=== PATIENT | male | born 1930 | race Caucasian/White ===

== ENCOUNTER 2018-10-15 09:52 | Inpatient (IN) | payer OTHER ==
--- NOTE | 2018-10-15 09:45 | R.PREADM ---
SCREENING DATE AND TIME 10/14/2018 14:21 (CDT) ANTICIPATED REHAB ADMISSION DATE 10/16/2018 REFERRING FACILITY [facility] REFERRAL DATE AND TIME 10/14/2018 14:21 (CDT) ACUTE ADMIT DATE 09/08/2018 Previous Rehabilitation(s): No. REFERRING PHYSICIAN Katarina Huff REHAB FACILITY [facility] PHYSICIAN REVIEWER Dr. Chelly Limon MR# [id number] NAME JILLIAN JARQUIN ADDRESS [id number] [place] [address] PHONE [facility] [id number] DATE OF 1930 AGE 87 SSN# [id number] GENDER male MARITAL STATUS RACE white ADMIT FROM 01 - Home (private home/apt. board/care, assisted living, fci, transitional living) PRE-HOSPITAL LIVING SETTING 01 - Home (private home/apt. board/care, assisted living, fci, transitional living) HOME TYPE AND DETAILS Type of home: single family house # of levels in the residence: 1 # of steps to enter the residence: 0 # of steps within the residence: 0 PRE-HOSPITAL LIVING WITH Family/Relatives FAMILY SUPPORT Yes PRIMARY FAMILY CONTACT NAME Vernell Jarquin PRIMARY FAMILY CONTACT PHONE PRIMARY FAMILY CONTACT RELATIONSHIP PHONE PRIMARY FAMILY CONTACT ON ADM.? no IS PRIMARY FAMILY CONTACT AUTH. REP.? no 1ST EMERGENCY CONTACT Vernell Jarquin 1ST CONTACT PHONE 1ST CONTACT RELATIONSHIP PHONE 1ST CONTACT ON ADM. no IS 1ST CONTACT AUTH. REP.? no PHONE 2ND CONTACT ON ADM.? no PATIENT EMPLOYMENT STATUS Retired (for age) PATIENT EMPLOYER No Employer PAYOR INFORMATION: 1ST PAYOR NAME MEDICARE 1ST PAYOR PHONE [phone] 1ST PAYOR INJURY/ILLNESS DUE TO ACCIDENT? No ANOTHER GREEN PARTY RESPONSIBLE? No PRIMARY REHAB/ACUTE DIAGNOSIS: Right Hip Intertrochanteric Fracture ONSET DATE 09/08/2018 REHAB IMPAIRMENT CATEGORY (LISA): 07 Fracture of LE (FracLE) MEETS 60% rule AFFECTED EXTREMITIES: RLE PRIMARY DIAGNOSIS-RELATED SURGERIES: Cephalomedullary Nailing Right Femur- performed by Katarina Huff on 09/09/2018 COMORBID REHAB/ACUTE DIAGNOSES: - N/A ATRIAL FIBRILLATION CAD HTN GOUT GERD PROSTATE CANCER INTERVENTIONS: - Atrial Fibrillation Anticoagulation Medications VS - CAD 02 sats Activity management Medications VS - GERD Altered diet Elevation of head of bed Medications Nausea/vomiting Nighttime food/fluid restrictions Nutrition RISK FOR COMPLICATIONS: - Atrial Fibrillation CVA Heart failure Limb embolus - CAD CHF Cardiac Arrest [place] Pain - GERD Alteration in sleep Aspiration Dehydration Malnutrition Pain SUMMARY OF ACUTE HOSPITALIZATION: Pt. is a 87 yo Right-handed white male. On 09/08/2018 he was admitted to [facility] with diagnosis Right Hip Intertrochanteric Fra cture. His impairment category is Orthopaedic Disorders 08 - Unilateral Hip Fracture (08). Pre-morbidly, Pt. was independent/mod-I in Self-Care, Sphincter Control, Transfers Control, Locomotio n, Communication, and Social Cognition; and he had good Sphincter Control. Currently, he has deficits of Self-Care, Transfers Control, Locomotion, Endurance, Balance, and Safet y Awareness. Pt. is now referred to [facility] for acute in-patient rehabilitation in order to maximize patient's functional independence in activities of daily living, strength, ROM, and mobi lity. Patient has realistic goal of being discharged at assistance level 6-Nini to reside at Home with Fam lizzy/Relatives. Jillian Jarquin is an 87 old male that lives in a single chelo house with his . On 09/08/2018, he fell and was admitted at [facility]. He is now medically stable but in need of 24-hour nursing, doctor supervision and oversite while receiving participate in 3hours of therapy a day/15 hours per week and receive care with an intensive interdisciplinary approach. PAST MEDICAL HISTORY ATRIAL FIBRILLATION CAD GERD GOUT HTN PROSTATE CANCER MEDICATION ALLERGIES: No Known Drug Allergies (NKDA) ENVIRONMENTAL ALLERGIES: None Known - Substance Allergies None Known - Other Allergies None Known CODE STATUS: Full code WEIGHT/HEIGHT/BMI: WEIGHT 200 lbs HEIGHT 6' 1" BMI 26.4 DIET: - Diet Type Regular - Diet - Solid Texture Regular - Diet - Liquid Texture Regular - Tube Feed N/A REVIEW OF SYSTEMS: - Gen Alert and awake Lying in bed No apparent distress Oriented to: person, time, and place - Vital Signs Temperature: 98.5 F SBP/DBP: 152/88 Pulse: 62 Resp: 16 Vital signs stable, afebrile - CVS RRR VITAL SIGNS Temperature: 98.5 F SBP/DBP: 152/88 Pulse: 62 Resp: 16 Vital signs stable, afebrile CURRENT SPHINCTER CONTROL: Pre-hospital bladder status: continent # of bladder accidents in the last 7 days prior to screenin Pre-hospital bowel status: continent # of bowel accidents in the last 7 days prior to screenin Last Bowel Movement Date:10/13/2018 DETAILED CURRENT FUNCTIONAL STATUS: - Bladder accident frequency: Ind - No accidents in the past 7 days - Bowel accident frequency: Ind - No accidents in the past 7 days - Walking score based on distance walked: 0(N/A) - Wheelchair score based on distance traveled: 0(N/A) FUNCTIONAL STATUS: - Self-Care A. Eating Ind sup B. Grooming Ind sup C. Bathing Ind sup D. Dressing - Upper Ind Brady E. Dressing - Lower Ind modA F. Toileting Ind modA - Sphincter Control G: Bladder control Ind Ind H: Bowel control Ind Ind - Transfers Control I. Bed/Chair/Wheelchair Ind modA J. Toilet Ind modA K. Tub/Shower Ind ADNO - Locomotion L. Walk/Wheelchair (C) Ind maxA L. Walk/Wheelchair (W) Ind maxA M. Stairs Ind ADNO - Communication N. Comprehension (B) Ind Ind O. Expression (B) Ind Ind - Social Cognition P. Social Interaction Ind Ind Q. Problem Solving Ind Ind R. Memory Ind Ind - Endurance Fair - Balance Fair - Safety Awareness Fair CURRENT FUNC. DEFICITS: Self-Care, Transfers Control, Locomotion, Endurance, Balance, and Safety Awareness THERAPY NOTES FROM ACUTE CARE: Attached. SPECIAL NEEDS: - Safety Concerns Skin breakdown precautions needed due to skin breakdown risk PRECAUTIONS: - Posterior Hip Precaution No adduction across midline No external rotation No hip flexion >90 degrees No internal rotation No wheel chair propulsion - Weight Bearing Precaution WBAT right LE PATIENT NEEDS ACTIVE AND ONGOING THERAPEUTIC INTERVENTION OF MULTIPLE THERAPY DISCIPLINES, INCLUDING: - Dietary and Nutrition Adequate Nutrition. Nutritional Education. Nutritional Supplements. PATIENT NEEDS CLOSE MEDICAL SUPERVISION BY A REHABILITATION PHYSICIAN FOR: Bowel and Bladder Management Coordination of Treatment Team Medical and Co-Morbidity Management PATIENT REQUIRES 24X7 REHAB NURSING FOR MEDICAL AND FUNCTIONAL MGT. 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 - Consensus on plan Discharge plan has been discussed with primary caregiver. Patient/Family is in agreement with the justin n. Primary caregiver is in agreement with the plan. - Patient/Family Goals Return home with assistance. - Planned Living Setting Upon Discharge Home, to live with Family/Relatives. Transitional Living. RECOMMENDED CARE LEVEL: IRF RECOMMENDATION DETAILS: Recommended Admission to Comprehensive Rehabilitation Program to Increase Functional [place] [facility] REVIEW AND ADMISSION DETERMINATION Admit - Based on my review of the Pre-Admission Screening results, in my medical judgment and experie nce, I concur with the findings and recommend admission to [facility], as this patient requires an IRF level of care. SIGNATURE PANEL: Clinical Liaison - [electronically] signed by Alfonzo Verdin on 10/14/2018 at 17:28 (CDT) Physician Reviewer - [electronically] signed by Dr. Chelly Limon on 10/15/2018 at 09:44 (CDT)
--- OUTSIDE RECORDS SUMMARY | 2018-10-15 09:54 | XMS REPORT | Clinical Summary ---
:1930 Author Organization [facility] Address [address] [place] [address] Care Team Providers Name Role Phone Asked, No Pcp Primary Care Provider Unavailable Allergies No Known Allergies Medications Medication Sig Dispensed Refills Start Date End Date Status clopidogrel Take 75 mg by 0 Active (PLAVIX) 75 mg mouth daily. tablet lisinopril Take 10 mg by 0 Active (PRINIVIL,ZESTRIL) mouth daily. 10 mg tablet sotalol (BETAPACE) Take 80 mg by 0 Active 80 MG tablet mouth 2 (two) times a day. allopurinol Take 300 mg by 0 Active (ZYLOPRIM) 300 MG mouth daily. tablet omeprazole Take 10 mg by 0 Active (PriLOSEC) 10 MG mouth daily. capsule silodosin (RAPAFLO) Take 1 capsule (8 90 capsule 3 07/31/2018 Active 8 mg mg total) by capsuleIndications: mouth daily. Take Prostate cancer after dinner to (HCC) relax prostate and have less urination at night. arnica 20 % Apply 5 mL 1 Bottle 0 07/31/2018 Active tincture topically 2 (two) times a day as needed (bruising). doxycycline Take 1 tablet 28 tablet 0 07/31/2018 08/14/2018 (VIBRA-TABS) 100 MG (100 mg total) by tabletIndications: mouth 2 (two) Orchalgia times a day for 14 days. Active Problems Problem Noted Date Hematoma of scrotum 07/31/2018 Encounters Date Type Specialty Care Team Description 07/31/2018 Office Visit Urology Jaspreet Raymond MD Hematoma of scrotum (Primary Dx); Prostate cancer (HCC); Nocturia; Orchalgia 07/30/2018 Telephone Urology Jaspreet Raymond MD after 10/14/2017 Family History Medical History Relation Name Comments Cancer Father Cancer Mother Relation Name Status Comments Father Mother Social History Tobacco Use Types Packs/Day Years Used Date Never Smoker Smokeless Tobacco: Never Used Alcohol Use Drinks/Week oz/Week Comments Yes Sex Assigned at Date Recorded Not on file Job Start Date Occupation Industry Not on file Not on file Not on file Travel History Travel Start Travel End No recent travel history available. Last Filed Vital Signs Vital Sign Reading Time Taken Blood Pressure - - Pulse - - Temperature - - Respiratory Rate - - Oxygen Saturation - - Inhaled Oxygen Concentration - - Weight 94.8 kg (209 lb) 07/31/2018 7:36 AM CDT Height 182.9 cm (6') 07/31/2018 7:36 AM CDT Body Mass Index 28.35 07/31/2018 7:36 AM CDT Plan of Treatment Health Maintenance Due Date Last Done Comments SHINGLES VACCINES (#1) 11/11/1979 65+ PNEUMOCOCCAL VACCINE (1 of 2 - PCV13) 1994 INFLUENZA VACCINE 10/08/2018 Procedures Procedure Name Priority Date/Time Associated Diagnosis Comments PSA, TOTAL AND FREE Routine 07/31/2018 8:28 AM Prostate cancer Results for this CDT (HCC) procedure are in the results section. [id number] Routine 07/31/2018 8:18 AM Nocturia Results for this CDT procedure are in the results section. after 10/14/2017 Results PSA, total and free (07/31/2018 8:28 AM CDT) PSA 0.2 0.0 - 4.0 [facility] Comment: ng/mL Silvano ECLIA methodology. According to the [place] [employer], Serum PSA should decrease and remain at undetectable levels after radical prostatectomy. The AUA defines biochemical recurrence as an initial PSA value 0.2 ng/mL or greater followed by a subsequent confirmatory PSA value 0.2 ng/mL or greater. Values obtained with different assay methods or kits cannot be used interchangeably. Results cannot be interpreted as absolute evidence of the presence or absence of malignant disease. PSA, free 0.02Comment: [place]ano N/A ng/mL [facility] ECLIA methodology. PSA, free percent 10.0 % [facility] Comment: The table below lists the probability of prostate cancer for men with non-suspicious IVY results and total PSA between 4 and 10 ng/mL, by patient age (Karyn et al, KARY 1998, 279:1542). % Free PSA 50-64 yr 65-75 yr 0.00-10.00%56% 55% 10.01-15.00%24% 35% 15.01-20.00%17% 23% 20.01-25.00%10% 20% >25.00% 5% 9% Please note:Karyn et al did not make specific recommendations regarding the use of percent free PSA for any other population of men. Specimen Blood Narrative Performed At Performed at:01 - [facility] [place] [facility] [address] [place], [id number] [employer] Sensei: Zacarias Gray MD, Phone:[phone] Performing Organization Address City/State/Zipcode Phone Number [facility] POC BLADDER SCAN/PVR (07/31/2018 8:18 AM CDT) Volume 12 ml Specimen Urine after 10/14/2017 [id number] (Home) [place] [address] Advance Directives Patient has advance care planning documents on file. For more information, please contact:Brody [id number] [place] [address]
--- OUTSIDE RECORDS SUMMARY | 2018-10-15 09:57 | XMS REPORT | Continuity of Care Document ---
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 NAUSEA/VOMITING Active 04/09/19 [facility] 15 [facility] Center 715.16 - LOC Active 08/17/19 [facility] PRIM OSTEOA 14 [place] CHEST PAIN, Active 12/01/19 [place] [address] Medical URGENCY Center CHEST PAIN Active 12/01/[address] Cancer Resolved Problem 08/18/2013 [facility] [place] Anemia Active Problem 07/03/2018 [facility] Bradycardia Active Problem 07/03/2018 [facility] Carotid stenosis Active Problem 07/03/2018 [facility] Cholesterol Resolved Problem 07/03/2018 [facility], [facility] [place] Hematoma Active Problem 07/03/2018 [facility] HTN - Resolved Problem 07/03/2018 [facility], [facility] [place] Prostate cancer Resolved Problem 07/03/2018 [facility], [facility] [place] Cancer Resolved Problem 12/04/2012 [facility] Cholesterol Resolved Problem 12/04/2012 [facility] HTN - Resolved Problem 12/04/2012 [facility] Prostate cancer Resolved Problem 12/04/2012 [facility] CHEST PAIN NOS Active [facility] Medications Medication Details Route Status Patient Ordering Order Source Instructions Provider Date Amlodipine 5 mg, 1 tab, Inactive [facility] Route: PO, Drug 2019 Medical form: TAB, Daily, Center Dosing Weight 97.727, kg, Start date: 07/01/18 9:00:00 CDT, Duration: 30 day, Stop date: 07/30/18 9:00:00 CDTNotes: (Same as: Norvasc) Allopurinol 300 mg, 1 tab, Inactive 07/01/ [facility] Route: PO, Drug 2019 Medical form: TAB, Daily, Center Dosing Weight 97.727, kg, Start date: 07/01/18 9:00:00 CDT, Duration: 30 day, Stop date: 07/30/18 9:00:00 CDTNotes: (Same as: Zyloprim) multivitamin 1 tab, Route: PO, Inactive [facility] Drug Form: TAB, 2019 Medical Dosing Weight Center 97.727, kg, Daily, Start date: 07/01/18 9:00:00 CDT, Duration: 30 day, Stop date: 07/30/18 9:00:00 CDTNotes: (Same as:Thera) WASTE: F/P - Black; E - Municipal Trash Bin Take with food. tramadol 50 mg=1 tab, PO, Active [facility] hydrochloride 50 Q6H, PRN Pain 2019 Medical MG Oral Tablet Score 1-5, # 60 Center tab, 0 Refill(s) Melatonin 3 MG 3 mg, 1 tab, No Longer [facility] Extended Release Route: PO, Drug Active 2018 Medical Tablet Form: TAB, Dosing Center Weight 97.727, kg, Bedtime, PRN as needed for insomnia, Start date: 06/30/18 21:59:00 CDT, Duration: 30 day, Stop date: 07/30/18 21:58:00 CDTNotes: (Same as: Melatonin) Protonix 40 mg, 1 tab, No Longer [facility] Route: PO, Drug Active 2018 Medical form: ECTAB, Center Q12H, Start date: 06/30/18 21:00:00 CDT, Duration: 30 day, Stop date: 07/30/18 9:00:00 CDTNotes: Tablet should not be chewed or crushed. (Same as: Protonix) atorvastatin 20 mg, 1 tab, No Longer [facility] Route: PO, Drug Active 2019 Medical form: TAB, Center Bedtime, Dosing Weight 97.727, kg, Start date: 06/30/18 21:00:00 CDT, Duration: 30 day, Stop date: 07/29/18 21:00:00 CDTNotes: (Same As: Lipitor) Sotalol 80 mg, 1 tab, No Longer [facility] Route: PO, Drug Active 2019 Medical form: TAB, BID, Center Dosing Weight 97.727, kg, Start date: 06/30/18 17:00:00 CDT, Duration: 30 day, Stop date: 07/30/18 9:00:00 CDTNotes: (Same As: Betapace) Prilosec 20 mg, Route: PO, Inactive [facility] Drug form: DRC, 2019 Medical BID, Dosing Center Weight 97.727, kg, Start date: 06/30/18 17:00:00 CDT, Duration: 30 day, Stop date: 07/30/18 9:00:00 CDT Lisinopril 40 mg, 2 tab, No Longer [facility] Route: PO, Drug Active 2019 Medical form: TAB, BID, Center Dosing Weight 97.727, kg, Start date: 06/30/18 17:00:00 CDT, Duration: 30 day, Stop date: 07/30/18 9:00:00 CDTNotes: (Same as: Prinivil, Zestril) Sodium Chloride 250 mL, Rate: To No Longer [facility] 0.9% (titrate) prime line and Active 2019 Medical 250 mL flush remaining Center blood products., Dosing Weight 97.727, kg, Route: IV, Total Volume: 250, Priority: Routine, Start Date: 06/30/18 16:11:00 CDT, Duration: 30 day, Stop date: 07/30/18 16:10:00 CDT, Replace Every: 24 hr Zofran 4 mg, 2 mL, Inactive [facility] Route: IVP, Drug 2019 Medical form: INJ, ONCE, Center Dosing Weight 97.727, kg, Start date: 06/30/18 15:45:00 CDT, Stop date: 06/30/18 15:45:00 CDTNotes: (Same as: Zofran) MEDICATION WASTE Product Size: 4 mg Product Wasted: ___ mg Calcium 1,000 mg, 2 tab, No Longer [facility] Carbonate 500 MG Route: PO, Drug Active 2019 Medical Chewable Tablet form: CHEWTAB, Center PRN, Dosing Weight 97.727, kg, PRN Abnormal Lab Result, FOR ICU USE ONLY, Start date: 06/30/18 12:03:00 CDT, Duration: 30 day, Stop date: 07/30/18 12:02:00 CDTNotes: (Same As: Tumdeo) Calcium Carbonate 500 qo=440 mg elemental calcium Dose= mg calcium carbonate ( mg elemental calcium) Calcium 1 gm, 10 mL, No Longer [place] Gluconate Route: IVPB, PRN, Active 2019 Medical Dosing Weight Center 97.727, kg, PRN Abnormal Lab Result, Start date: 06/30/18 12:03:00 CDT, Duration: 30 day, Stop date: 07/30/18 12:02:00 CDT, FOR ICU USE ONLYNotes: WASTE: F/P - Sink; E - Municipal Trash Bin Magnesium 2 gm, 50 mL, No Longer [place] Sulfate Route: IVPB, Drug Active 2018 Medical form: INJ, PRN, Center Dosing Weight 97.727, kg, PRN Abnormal Lab Result, Start date: 06/30/18 12:03:00 CDT, Duration: 30 day, Stop date: 07/30/18 12:02:00 CDT, FOR ICU USE ONLYNotes: WASTE: F/P - Sink; E - Municipal Trash Bin potassium 2 pkt, Route: PO, No Longer [facility] phosphate-sodium Drug Form: Active 2019 Medical phosphate 250 PDR/REC, Dosing Center mg-280 mg-160 mg Weight 97.727, oral powder for kg, PRN, PRN reconstitution Abnormal Lab Result, FOR ICU USE ONLY, Start date: 06/30/18 12:03:00 CDT, Duration: 30 day, Stop date: 07/30/18 12:02:00 CDTNotes: (Same as: Phos-NaK) Each 1.5 gm pkt has 250mg phosphorous. Mix w/2.5oz water and stir. Magnesium Oxide 800 mg, 2 tab, No Longer [facility] Route: PO, Drug Active 2018 Medical form: TAB, PRN, Center Dosing Weight 97.727, kg, PRN Abnormal Lab Result, FOR ICU USE ONLY, Start date: 06/30/18 12:03:00 CDT, Duration: 30 day, Stop date: 07/30/18 12:02:00 CDTNotes: (Same as: Mag-Ox 400) Magnesium oxide 245so=230ti elemental magnesium Dose=____mg magnesium oxide (___mg elemental magnesium) potassium 45 mmol, 15 mL, No Longer [place] phosphate Route: IVPB, PRN, Active 2019 Medical Dosing Weight Center 97.727, kg, PRN Abnormal Lab Result, Start date: 06/30/18 12:03:00 CDT, Duration: 30 day, Stop date: 07/30/18 12:02:00 CDT, FOR ICU USE ONLYNotes: (Same as: K Phosphate.) Do not infuse phosphorous concurrently in the same line as TPN or IVF that contains calcium. For double lumen central lines, phosphorous may be infused in a separate lumen from TPN. 1 mMol phoshate has 1.47 mEq potassium Infuse over 4 hours sodium phosphate 30 mmol, 10 mL, No Longer [place] Route: IVPB, PRN, Active 2018 Medical Dosing Weight Center 97.727, kg, PRN Abnormal Lab Result, Start date: 06/30/18 12:03:00 CDT, Duration: 30 day, Stop date: 07/30/18 12:02:00 CDT, FOR ICU USE ONLYNotes: Infuse over 4 hour. Do not infuse phosphorous concurrently in the same line as TPN or IVF that contains calcium. For double lumen central lines, phosphorous may be infused in a separate lumen from TPN. Potassium 20 mEq, 15 mL, No Longer [place] Chloride Route: TARA, Drug Active 2018 Medical form: LIQ, PRN, Center Dosing Weight 97.727, kg, PRN Abnormal Lab Result, Start date: 06/30/18 12:03:00 CDT, Duration: 30 day, Stop date: 07/30/18 12:02:00 CDT, FOR ICU USE ONLYNotes: (Same as: Potassium Chloride) Nitroglycerin 0.4 mg, 1 tab, No Longer [place] Route: KIARA, Drug Active 2018 Medical form: TAB, Q5Min, Center Dosing Weight 97.727, kg, PRN Chest Pain, Start date: 06/30/18 9:19:00 CDT, Duration: 3 doses or times, Stop date: Limited # of timesNotes: (Same as:Nitroquick, Nitrostat) "Do Not Crush" Sublingual tablet Plavix 75 mg, 1 tab, No Longer [place] Route: PO, Drug Active 2018 Medical form: TAB, Daily, Center Dosing Weight 97.727, kg, Start date: 06/30/18 9:18:00 CDT, Duration: 30 day, Stop date: 07/30/18 9:00:00 CDTNotes: (Same As: Plavix) Aspirin 81 mg, 1 tab, No Longer [place] Route: PO, Drug Active 2018 Medical form: CHEWTAB, Center Daily, Dosing Weight 97.727, kg, Start date: 06/30/18 9:17:00 CDT, Duration: 30 day, Stop date: 07/30/18 9:00:00 CDTNotes: Take with food. Streptococcus 0.5 mL, Route: No Longer [place] pneumoniae IM, Drug Form: Active 2018 Medical serotype 1 INJ, ONCALL, [place] capsular antigen Start date: diphtheria 06/30/18 6:56:54 [id number] protein CDT, Stop date: conjugate 07/30/18 6:51:54 vaccine / CDTNotes: Shake Streptococcus well prior to use pneumoniae (Same as: serotype 14 Prevnar 13) capsular antigen diphtheria [id number] protein conjugate vaccine / Streptococcus pneumoniae serotype 18C capsular antigen d Amlodipine 5 mg, PO, Daily, Active [place] 0 Refill(s) 2018 Medical [place] clopidogrel 75 75 mg=1 tab, PO, Active [place] MG Oral Tablet Daily, 0 2018 [facility] [Plavix] Refill(s) [place] Protonix 40 mg, 1 tab, PO No Longer [facility] [place] Route: PO, Drug Active 2012 Medical form: ECTAB, [place] Before Dinner, Start date: 12/01/12 16:30:00, Duration: 30 day, Stop date: 12/30/12 16:30:00 sotalol 80 mg, 1 tab, PO No Longer [facility] [place] Route: PO, Drug Active 2012 Medical form: TAB, BID, Center Dosing Weight 103.182, kg, Start date: 12/01/12 9:00:00, Duration: 30 day, Stop date: 12/30/12 17:00:00 Prilosec 20 mg, Route: PO, PO No Longer [facility] Drug form: DRC, Active 2012 Medical BID, Dosing Center Weight 103.182, kg, Start date: 12/01/12 9:00:00, Duration: 30 day, Stop date: 12/30/12 17:00:00 multivitamin 1 tab, Route: PO, PO No Longer [facility] Drug Form: TAB, Active 2012 Medical Dosing Weight Center 103.182, kg, Daily, Start date: 12/01/12 9:00:00, Duration: 30 day, Stop date: 12/30/12 9:00:00 lisinopril 40 mg, 2 tab, PO No Longer [facility] Route: PO, Drug Active 2012 Medical form: TAB, BID, Center Dosing Weight 103.182, kg, Start date: 12/01/12 9:00:00, Duration: 30 day, Stop date: 12/30/12 17:00:00 aspirin 81 mg, 1 tab, PO No Longer [facility] Route: PO, Drug Active 2012 Medical form: CHEWTAB, Center Daily, Dosing Weight 103.182, kg, Start date: 12/01/12 9:00:00, Duration: 30 day, Stop date: 12/30/12 9:00:00 allopurinol 300 mg, 1 tab, PO No Longer [facility] Route: PO, Drug Active 2012 Medical form: TAB, Daily, Center Dosing Weight 103.182, kg, Start date: 12/01/12 9:00:00, Duration: 30 day, Stop date: 12/30/12 9:00:00 amLODipine 5 mg, 1 tab, PO No Longer [facility] Route: PO, Drug Active kavita 2012 Medical form: TAB, Daily, Center Dosing Weight 102.273, kg, Start date: 12/01/12 9:00:00, Duration: 30 day, Stop date: 12/30/12 9:00:00 ibuprofen 400 mg, 1 tab, PO No Longer [facility] Route: PO, Drug Active 2012 Medical form: TAB, ONCE, Center Dosing Weight 102.273, kg, Start date: 11/30/12 20:47:00, Stop date: 11/30/12 20:47:00 Prilosec 20 mg 20 mg, 1 cap, PO, [facility] oral delayed BID, 30 cap, 2012 Medical release capsule Substitution Center Allowed multivitamin 1 tab, PO, Daily, PO [facility] Substitution 2012 Medical Allowed, Center Maintenance aspirin 81 mg, PO, Daily, PO Active [facility] Sub[facility] 2012 Medical Allowed Center fentanyl 50 microgram, 1 IVP No Longer [facility] mL, Route: IVP, Active kavita 2012 Medical Drug form: INJ, Center ONCE, Dosing Weight 102.273, kg, Priority: STAT, Start date: 11/30/12 15:34:00, Stop date: 11/30/12 15:34:00 Cardene 40 mg in 40 mg, 200 mL, IV No Longer [facility] NS 200 ml IV 40 Rate: Titrate, Active kavita 2012 Medical mg Dosing Weight Center 102.273, kg, Route: IV, Total Volume: 200 mL, Duration: 30 day, Stop date: 12/30/12 15:33:00, Replace Every: 24 hr nitroglycerin 0.4 mg, 1 tab, SL No Longer [facility] Route: SL, Drug Active kavita 2012 Medical form: TAB, ONCE, Center Dosing Weight 102.273, kg, Priority: STAT, Start date: 11/30/12 14:41:00, Stop date: 11/30/12 14:41:00 morphine Sulfate 2 mg, 1 mL, IVP No Longer [facility] Route: IVP, Drug Active kavita 2012 Medical form: INJ, ONCE, Center Dosing Weight 102.273, kg, Priority: STAT, Start date: 11/30/12 14:40:00, Stop date: 11/30/12 14:40:00 Saline Flush 5 mL, Route: IVP, IVP No Longer [facility] 0.9% Drug Form: INJ, Active kavita 2012 Medical Dosing Weight Center 102.273, kg, Q8H, PRN Line Flush, Start date: 11/30/12 14:37:00, Duration: 30 day, Stop date: 12/30/12 14:36:00, Administer at least once every 8 hoursAdminister at least once every 8 hours allopurinol 300 mg, PO, PO [facility] Daily, 2012 Medical Substitution Center Allowed lisinopril 40 mg, PO, BID, PO On Hold [facility] [place] Substitution 2012 Medical Allowed Center sotalol 80 mg, PO, BID, PO On Hold [facility] [place] Substitution 2012 [facility] Allowed [place] influenza virus 0.5 ml, Route: IM No Longer [facility] [place] vaccine, IM, Drug Form: Active 2007 Medical inactivated INJ, ONCE, Start Center date: 01/29/08 9:00:00, Stop date: 01/29/08 9:00:00 Allergies, Adverse Reactions, Alerts No Known Medication Allergies Immunizations Immunization Date Site Status Last Updated Comments Source Given [facility] vaccine, 8 deltoid [facility] inactivated Center, [facility] influenza [facility] vaccine, 8 [facility] inactivated Center Results Order Name Results Value Reference Date Interpretation Comments Source Range CHEM PANEL Phosphorus 4.3 2.5 - 4.5 07/01 [facility] CHEM PANEL Magnesium 2.2 1.8 - 2.4 07/01 [facility] CHEM PANEL eGFR 64 07/01 Result Comment: The [facility] eGFR is Center calculated using the CKD-EPI formula. In most young, healthy individuals the eGFR will be >90 mL/min/1.73m2. The eGFR declines with age. An eGFR of 60-89 may be normal in some populations, particularly the elderly, for whom the CKD-EPI formula has not been extensively validated. Use of the eGFR is not recommended in the following populations:<b r/>
Indivi duals with unstable creatinine concentrations , including patients and those with serious co-morbid conditions.

Patient s with extremes in muscle mass or diet.

The data above are obtained from the National Kidney Disease Education Program (NKDEP) which additionally recommends that when the eGFR is used in patients with extremes of body mass index for purposes of drug dosing, the eGFR should be multiplied by the estimated BMI. CHEM PANEL BUN 25 7 - 22 07/[address] CHEM PANEL B/C Ratio 24 6 - 25 07/[address] CHEM PANEL Calcium Lvl 8.4 8.5 - 10.5 07/[address] CHEM PANEL AGAP 11.7 10.0 - 07/01 [place] 20.0 [facility] CHEM PANEL Potassium 4.7 3.5 - 5.1 07/01 [facility] [address] [place] [address] CHEM PANEL Chloride Lvl 106 95 - 109 07/[address] CHEM PANEL Creatinine 1.04 0.50 - 07/01 [facility] 1.[facility] CHEM PANEL Sodium Lvl 139 135 - 145 07/[address] CHEM PANEL CO2 26 24 - 32 07/[address] CHEM PANEL Glucose Lvl 106 70 - 99 07/[address] CHEM PANEL AST 15 0 - 37 07/[address] CHEM PANEL Alk Phos 85 39 - 136 07/[address] CHEM PANEL Albumin Lvl 2.2 3.5 - 5.0 07/[address] CHEM PANEL ALT 12 0 - 65 07/[address] CHEM PANEL Total 5.8 6.4 - 8.4 07/01 [facility] Protein [address] CHEM PANEL Bili Total 0.5 0.2 - 1.3 07/[address] CHEM PANEL Globulin 3.6 2.7 - 4.2 07/[address] CHEM PANEL A/G Ratio 0.6 0.7 - 1.6 07/[address] HEMATOLOGY Monocytes 10.3 2.0 - 12.0 07/[address] HEMATOLOGY Lymphocytes 1.5 1.0 - 5.5 07/[address] HEMATOLOGY Neutrophils 5.0 1.5 - 8.1 07/[address] HEMATOLOGY Basophils 0.6 0.0 - 1.0 07/[address] HEMATOLOGY Eosinophils 0.9 0.0 - 4.0 07/01 [facility] HEMATOLOGY Eosinophils 0.1 0.0 - 0.5 07/01 [place] # /2019 [facility] HEMATOLOGY Segs 68.2 45.0 - 07/01 [place] 75.0 /2019 [facility] HEMATOLOGY Lymphocytes 20.0 20.0 - 07/01 [place] 40.0 /2019 [facility] HEMATOLOGY Monocytes # 0.8 0.0 - 0.8 07/01 [facility] HEMATOLOGY Thrombin 18.7 15.0 - 07/01 [place] Time 21.2 /2019 [facility] HEMATOLOGY INR 1.29 0.85 - 07/01 [place] 1.17 [facility] HEMATOLOGY PT 15.8 12.0 - 07/01 [place] 14.7 2019 [facility] HEMATOLOGY PTT 37.8 22.9 - 07/01 [place] 35.8 /2019 [facility] HEMATOLOGY D-Dimer 0.64 07/01 [facility] HEMATOLOGY Fibrinogen 399 230 - 510 07/01 [facility] Lvl /2018 [facility] HEMATOLOGY RBC 3.86 4.70 - 07/01 [place] 6.10 [facility] HEMATOLOGY Hgb 11.1 14.0 - 07/01 [place] 18.0 2019 [facility] HEMATOLOGY Hct 33.6 42.0 - 07/01 [place] 54.0 2019 [facility] HEMATOLOGY WBC 7.4 3.7 - 10.4 07/01 [facility] HEMATOLOGY MCH 28.7 27.0 - 07/01 [place] 31.0 [facility] HEMATOLOGY MCV 86.9 80.0 - 07/01 [place] 94.0 2019 [facility] HEMATOLOGY MPV 8.3 7.4 - 10.4 07/01 [facility] HEMATOLOGY RDW 15.9 11.5 - 07/01 [place] 14.5 2019 [facility] HEMATOLOGY Platelet 231 133 - 450 07/01 [facility] HEMATOLOGY MCHC 33.0 32.0 - 07/01 [place] 36.0 2019 [facility] PARATHYROID Ca Ion WB 1.12 1.05 - 07/01 [place] PROFILE . [facility] PARATHYROID Ca Norm WB 1.12 1.05 - 07/01 [facility] PROFILE . [facility] HEMATOLOGY MPV 8.9 7.4 - 10.4 07/01 [facility] HEMATOLOGY Platelet 244 133 - 450 07/01 [facility] HEMATOLOGY MCH 28.4 27.0 - 07/01 [place] 31.0 Medical [place] HEMATOLOGY MCHC 32.8 32.0 - 07/01 36.0 [facility] HEMATOLOGY RDW 15.6 11.5 - 07/01 14. [facility] HEMATOLOGY MCV 86.6 80.0 - 07/01 94.0 [facility] HEMATOLOGY Hct 34.0 42.0 - 07/01 [place] 54.0 [facility] HEMATOLOGY WBC 8.3 3.7 - 10.4 07/01 [facility] HEMATOLOGY RBC 3.92 4.70 - 07/01 . [facility] HEMATOLOGY Hgb 11.1 14.0 - 07/01 . [facility] BLOOD BANK RBC product Product available 06/30 [facility] RESULTS (06/30/18 4:29 PM) [facility] HEMATOLOGY Hgb 11.2 14.0 - 06/30 . [facility] HEMATOLOGY Hct 34.7 42.0 - 06/30 54.0 [facility] HEMATOLOGY RDW 16.0 11. - 06/30 14. [facility] HEMATOLOGY Platelet 296 133 - 450 06/30 [facility] HEMATOLOGY MCH 28.3 27.0 - 06/30 31.0 Medical Center HEMATOLOGY MCHC 32.4 32.0 - 06/30 36.0 [facility] HEMATOLOGY MPV 8.3 7.4 - 10.4 06/30 [facility] HEMATOLOGY WBC 6.6 3.7 - 10.4 06/30 [facility] HEMATOLOGY Hct 34.7 42.0 - 06/30 [place] 54.0 2019 [facility] HEMATOLOGY MCV 87.6 80.0 - 06/30 [place] .0 [facility] HEMATOLOGY RBC 3.96 4.70 - 06/30 [place] . [facility] HEMATOLOGY Hgb 11.2 14.0 - 06/30 [place] 18.0 2019 [facility] HEMATOLOGY POC <68 06/30 [facility] Time HEMATOLOGY POC 225 06/30 [facility] Activated [facility] Clotting Center Time CHEM PANEL Lactic Acid 0.6 0.5 - 2.2 06/30 [facility] CHEM PANEL Phosphorus 3.4 2.5 - 4.5 06/30 [facility]2018 [facility] CHEM PANEL Magnesium 1.9 1.8 - 2.4 06/30 [facility] ELECTROLYTE AGAP 12.1 10.0 - 06/30 [facility] 20.0 [facility] ELECTROLYTE eGFR 82 06/30 Result [facility] Comment: The Medical eGFR is Center calculated using the CKD-EPI formula. In most young, healthy individuals the eGFR will be >90 mL/min/1.73m2. The eGFR declines with age. An eGFR of 60-89 may be normal in some populations, particularly the elderly, for whom the CKD-EPI formula has not been extensively validated. Use of the eGFR is not recommended in the following populations:<b r/>
Indivi duals with unstable creatinine concentrations , including patients and those with serious co-morbid conditions.

Patient s with extremes in muscle mass or diet.

The data above are obtained from the National Kidney Disease Education Program (NKDEP) which additionally recommends that when the eGFR is used in patients with extremes of body mass index for purposes of drug dosing, the eGFR should be multiplied by the estimated BMI. ELECTROLYTE Calcium Lvl 8.5 8.5 - 10.5 06/30 [facility] ELECTROLYTE CO2 25 24 - 32 06/[address] ELECTROLYTE BUN 17 7 - 22 06/30 [facility]2018 [facility] ELECTROLYTE Potassium 4.1 3.5 - 5.1 06/30 [facility] ELECTROLYTE Sodium Lvl 137 135 - 145 06/[address] ELECTROLYTE Creatinine 0.75 0.50 - 06/30 [facility] Lvl 1.40 [facility] ELECTROLYTE Chloride Lvl 104 95 - 109 06/30 [facility]2018 [facility] ELECTROLYTE Glucose Lvl 101 70 - 99 06/[address] HEMATOLOGY Eosinophils 0.3 0.0 - 0.5 06/30 [facility] HEMATOLOGY Monocytes # 0.6 0.0 - 0.8 06/[address] HEMATOLOGY Lymphocytes 1.3 1.0 - 5.5 06/30 [facility] [place] # /2018 [facility] HEMATOLOGY Eosinophils 5.1 0.0 - 4.0 06/30 /2018 [facility] HEMATOLOGY Neutrophils 3.6 1.5 - 8.1 06/30 [place] # /2018 [facility] HEMATOLOGY Basophils 0.6 0.0 - 1.0 06/30 [facility] HEMATOLOGY Monocytes 10.5 2.0 - 12.0 06/30 /2018 [facility] HEMATOLOGY Lymphocytes 21.8 20.0 - 06/30 [place] 40.0 [facility] HEMATOLOGY Segs 62.0 45.0 - 06/30 [place] 75.0 [facility] HEMATOLOGY PTT 155.2 22.9 - 06/30 [place] 35. [facility] HEMATOLOGY PT 42.7 12.0 - 06/30 [place] . [facility] HEMATOLOGY INR 4.64 0.85 - 06/30 Result [facility] 03.26 Comment: [facility] Critical Center Result(s) called to aleksander medina at 06/30/2018 09:49 bypm. Read back OK. PARATHYROID Ca Norm WB 1.10 1.05 - 06/30 [facility] PROFILE . [facility] PARATHYROID Ca Ion WB 1.08 1.05 - 06/30 [facility] PROFILE 04.03 [facility] BLOOD BANK Antibody Negative 06/30 [facility] RESULTS Scrn (06/30/18 6:40 AM) [facility] BLOOD BANK ABO/Rh O POS 06/30 [facility] HEMATOLOGY PT 15.6 12.0 - 06/30 [place] 14. [facility] HEMATOLOGY INR 1.27 0.85 - 06/30 [place] 03.26 [facility] HEMATOLOGY PTT 43.2 22.9 - 06/30 [place] 35. [facility] CHEMISTRY eGFR 83 12/02 NA <sup>1</sup>Re /2012 sult Comment: Medical The eGFR is Center calculated using the CKD-EPI formula. In most young, healthy individuals the eGFR will be >90 mL/min/1.73m2. The eGFR declines with age. An eGFR of 60-89 may be normal in some populations, particularly the elderly, for whom the CKD-EPI formula has not been extensively validated. Use of the eGFR is not recommended in the following populations:&l t;br/>
Ind ividuals with unstable creatinine concentrations , including patients and those with serious co-morbid conditions.

Patient s with extremes in muscle mass or diet.

The data above are obtained from the National Kidney Disease Education Program (NKDEP) which additionally recommends that when the eGFR is used in patients with extremes of body mass index for purposes of drug dosing, the eGFR should be multiplied by the estimated BMI. CHEMISTRY BUN 21 7 - 22 12/02 Normal [facility] CHEMISTRY Creatinine 0.8 0.5 - 1.4 12/02 Normal [facility] Lvl [facility] CHEMISTRY Glucose Lvl 100 70 - 99 12/02 HI <sup>4</sup>In terpretive Medical Data: Adult Center reference range values reflect the clinical guidelines<br/ >of the [place] [employer]. CHEMISTRY Sodium Lvl 141 135 - 145 12/02 Normal [facility] CHEMISTRY Calcium Lvl 8.0 8.5 - 10.5 12/02 LOW [facility] CHEMISTRY Potassium 4.3 3.5 - 5.1 12/02 Normal [facility] l [facility] CHEMISTRY Chloride Lvl 106 95 - 109 12/02 Normal [facility] CHEMISTRY CO2 26 24 - 32 12/02 Normal [facility] CHEMISTRY AGAP 13.3 10.0 - 12/02 [facility] 20.0 [facility] HEMATOLOGY MPV 8.3 7.4 - 10.4 12/02 Normal [facility] HEMATOLOGY Platelet 169 133 - 450 12/02 Normal [facility] HEMATOLOGY RDW 17.1 11.5 - 12/02 HI [place] 14.5 [facility] Center HEMATOLOGY MCHC 32.3 32.0 - 12/02 Normal [place] 36.0 [facility] HEMATOLOGY Hgb 12.3 14.0 - 12/02 LOW [place] 18.0 [facility] HEMATOLOGY MCH 27.1 27.0 - 12/02 [facility] [place] 31.0 [facility] HEMATOLOGY MCV 83.8 80.0 - 12/02 Normal [place] 94.0 [facility] HEMATOLOGY Hct 38.1 42.0 - 12/02 LOW [place] 54.0 [facility] Center HEMATOLOGY RBC 4.55 4.70 - 12/02 LOW [place] 6.10 /2012 [facility] HEMATOLOGY WBC 5.2 3.7 - 10.4 12/02 Normal [facility] HEMATOLOGY Monocytes 10.1 2.0 - 12.0 12/02 Normal /2012 [facility] HEMATOLOGY Lymphocytes 24.0 20.0 - 12/02 Normal [place] 40.0 /2012 [facility] HEMATOLOGY Segs 61.8 45.0 - 12/02 Normal [place] 75.0 /2012 [facility] HEMATOLOGY Lymphocytes 1.2 1.0 - 5.5 12/02 Normal [place] # /2012 [facility] Center HEMATOLOGY Monocytes # 0.5 0.0 - 0.8 12/02 Normal [facility] HEMATOLOGY Basophils 0.7 0.0 - 1.0 12/02 Normal [facility] HEMATOLOGY Eosinophils 3.4 0.0 - 4.0 12/02 Normal [facility] HEMATOLOGY Segs-Bands # 3.2 1.5 - 8.1 12/02 Normal [facility] HEMATOLOGY Eosinophils 0.2 0.0 - 0.5 12/02 Normal [facility] # /2012 [facility] CHEMISTRY eGFR 79 12/01 NA <sup>2</sup>Re sult Comment: Medical The eGFR is Center calculated using the CKD-EPI formula. In most young, healthy individuals the eGFR will be >90 mL/min/1.73m2. The eGFR declines with age. An eGFR of 60-89 may be normal in some populations, particularly the elderly, for whom the CKD-EPI formula has not been extensively validated. Use of the eGFR is not recommended in the following populations:&l t;br/>
Ind ividuals with unstable creatinine concentrations , including patients and those with serious co-morbid conditions.

Patient s with extremes in muscle mass or diet.

The data above are obtained from the National Kidney Disease Education Program (NKDEP) which additionally recommends that when the eGFR is used in patients with extremes of body mass index for purposes of drug dosing, the eGFR should be multiplied by the estimated BMI. CHEMISTRY Glucose Lvl 106 70 - 99 12/01 HI <sup>5</sup>In terpretive Medical Data: Adult Center reference range values reflect the clinical guidelines<br/ >of the [place] [employer]. CHEMISTRY BUN 16 7 - 22 12/01 Normal [facility] CHEMISTRY Calcium Lvl 8.0 8.5 - 10.5 12/01 LOW [facility] Center CHEMISTRY AGAP 12.0 10.0 - 12/01 Normal [place] 20.0 [facility] Center CHEMISTRY Chloride Lvl 104 95 - 109 12/01 Normal Medical [facility] CHEMISTRY CO2 29 24 - 32 12/01 Normal [facility] CHEMISTRY Potassium 4.0 3.5 - 5.1 12/01 Normal [place] [facility] CHEMISTRY Sodium Lvl 141 135 - 145 12/01 Normal Medical [facility] CHEMISTRY Creatinine 0.9 0.5 - 1.4 12/01 Normal [place] [facility] CHEMISTRY TSH 2.450 0.360 - 12/01 Normal [place] 3.740 /2012 Medical Center HEMATOLOGY Hgb 13.2 14.0 - 12/01 [facility] [place] 18.0 Medical [place] HEMATOLOGY RBC 4.96 4.70 - 12/01 Normal [place] 6.10 Medical Center HEMATOLOGY Hct 41.7 42.0 - 12/01 [facility] [place] 54.0 /2012 Medical Center HEMATOLOGY WBC 5.9 3.7 - 10.4 12/01 Normal [facility] Center HEMATOLOGY MCV 84.0 80.0 - 12/01 [facility] [place] 94.0 /2012 Medical Center HEMATOLOGY MCH 26.7 27.0 - 12/01 [facility] [place] 31.0 Medical Center HEMATOLOGY RDW 17.5 11.5 - 12/01 [facility] [place] 14.5 /2012 Medical Center HEMATOLOGY Platelet 185 133 - 450 12/01 Normal Medical [facility] HEMATOLOGY MCHC 31.8 32.0 - 12/01 [facility] [place] 36.0 /2012 Medical Center HEMATOLOGY MPV 8.3 7.4 - 10.4 12/01 Normal [facility] HEMATOLOGY Monocytes 8.8 2.0 - 12.0 12/01 Normal [facility] HEMATOLOGY Lymphocytes 19.3 20.0 - 12/01 [facility] [place] 40.0 /2012 Medical Center HEMATOLOGY Segs 67.1 45.0 - 12/01 Normal [place] 75.0 /2012 Medical Center HEMATOLOGY Eosinophils 4.1 0.0 - 4.0 12/01 [facility] Medical Center HEMATOLOGY Segs-Bands # 3.9 1.5 - 8.1 12/01 Normal [facility] HEMATOLOGY Eosinophils 0.2 0.0 - 0.5 12/01 Normal [facility] # /2012 [facility] HEMATOLOGY Monocytes # 0.5 0.0 - 0.8 12/01 Normal [facility] HEMATOLOGY Basophils 0.7 0.0 - 1.0 12/01 Normal [facility] HEMATOLOGY Lymphocytes 1.1 1.0 - 5.5 12/01 Normal [place] # /2012 [facility] CHEMISTRY Troponin-T <0.010 0.000 - 12/01 Normal [facility] 0.100 [facility] CHEMISTRY Troponin-I <0.02 0.00 - 12/01 Normal [facility] 0.40 [facility] CHEMISTRY Total CK 60 12 - 191 12/01 Normal [facility] CHEMISTRY Phosphorus 3.3 2.5 - 4.5 11/30 Normal [facility] CHEMISTRY Magnesium 2.0 1.8 - 2.4 11/30 Normal [facility] Lvl [facility] CHEMISTRY Troponin-I <0.02 0.00 - 11/30 Normal [facility] 0.40 [facility] CHEMISTRY Total CK 34 - 191 11/30 Normal [facility] CHEMISTRY eGFR 79 11/30 NA <sup>3</sup>Re randall Comment: Medical The eGFR is Center calculated using the CKD-EPI formula. In most young, healthy individuals the eGFR will be >90 mL/min/1.73m2. The eGFR declines with age. An eGFR of 60-89 may be normal in some populations, particularly the elderly, for whom the CKD-EPI formula has not been extensively validated. Use of the eGFR is not recommended in the following populations:&l t;br/>
Ind ividuals with unstable creatinine concentrations , including patients and those with serious co-morbid conditions.

Patient s with extremes in muscle mass or diet.

The data above are obtained from the National Kidney Disease Education Program (NKDEP) which additionally recommends that when the eGFR is used in patients with extremes of body mass index for purposes of drug dosing, the eGFR should be multiplied by the estimated BMI. CHEMISTRY Calcium Lvl 8.9 8.5 - 10.5 11/30 [facility] CHEMISTRY Potassium 4.2 3.5 - 5.1 11/30 [facility] [place] [facility] CHEMISTRY Sodium Lvl 138 135 - 145 11/30 Normal [facility] CHEMISTRY CO2 32 24 - 32 11/30 Normal [facility] CHEMISTRY Chloride Lvl 103 95 - 109 11/30 Normal [facility] CHEMISTRY BUN 16 7 - 22 11/30 Normal [facility] CHEMISTRY Creatinine 0.9 0.5 - 1.4 11/30 Normal [facility] l Medical Center CHEMISTRY Glucose Lvl 101 70 - 99 11/30 [place] <sup>6</sup>In terpretive Medical Data: Adult Center reference range values reflect the clinical guidelines<br/ >of the [place] [employer]. CHEMISTRY ALT 28 0 - 65 11/30 Normal [facility] CHEMISTRY Alk Phos 105 39 - 136 11/30 Normal Medical [facility] CHEMISTRY Total 7.2 6.4 - 8.4 11/30 Normal Medical [facility] CHEMISTRY Bili Total 0.4 0.2 - 1.3 11/30 Normal [facility] Center CHEMISTRY Albumin Lvl 3.1 3.5 - 5.0 11/30 LOW [facility] Center CHEMISTRY AST 26 0 - 37 11/30 Normal [facility] Center CHEMISTRY B/C Ratio 18 6 - 25 11/30 Normal [facility] Center CHEMISTRY AGAP 7.2 10.0 - 11/30 LOW [place] 20.0 Medical Center CHEMISTRY Globulin 4.1 2.0 - 4.0 11/30 [facility] CHEMISTRY A/G Ratio 0.8 0.7 - 1.6 11/30 Normal [facility] CHEMISTRY Troponin-T <0.010 0.000 - 11/30 Normal [place] 0.100 Medical Center HEMATOLOGY Lymphocytes 1.1 1.0 - 5.5 11/30 Normal [place] # [facility] HEMATOLOGY Segs-Bands # 3.2 1.5 - 8.1 11/30 Normal [facility] Center HEMATOLOGY Monocytes # 0.5 0.0 - 0.8 11/30 Normal Medical [facility] HEMATOLOGY Basophils 0.8 0.0 - 1.0 11/30 Normal [facility] HEMATOLOGY Eosinophils 0.2 0.0 - 0.5 11/30 Normal [place] # /2012 [facility] Center HEMATOLOGY Basophils # 0.0 0.0 - 0.2 11/30 Normal /2012 [facility] HEMATOLOGY Segs 64.9 45.0 - 11/30 Normal [place] 75.0 /2012 [facility] HEMATOLOGY Monocytes 9.1 2.0 - 12.0 11/30 Normal /2012 [facility] HEMATOLOGY Eosinophils 3.2 0.0 - 4.0 11/30 Normal /2012 [facility] HEMATOLOGY Lymphocytes 22.0 20.0 - 11/30 Normal [place] 40.0 /2012 [facility] HEMATOLOGY PTT 35.4 22.9 - 11/30 Normal <sup>8</sup>In [facility] 35.8 terpretive Medical Data: [facility] Therapeutic Range: 57 - 92 Seconds HEMATOLOGY PT 13.5 12.0 - 11/30 Normal [place] 14.7 /2012 [facility] HEMATOLOGY INR 1.04 0.85 - 11/30 Normal <sup>7</sup>In [facility] 1.17 terpretive Medical Data: Center RECOMMENDED RANGES FOR PROTIME INR:
2.0-3.0 for most medical and surgical thromboembolic states.
2.5-3.5 for artificial heart valves and recurrent embolism.

INR SHOULD BE USED ONLY FOR PATIENTS ON STABLE ANTICOAGULANT THERAPY. HEMATOLOGY MPV 8.2 7.4 - 10.4 11/30 Normal [facility] HEMATOLOGY Platelet 214 133 - 450 11/30 Normal [facility] HEMATOLOGY WBC 5.0 3.7 - 10.4 11/30 Normal [facility] HEMATOLOGY Hct 39.4 42.0 - 11/30 LOW [place] 54.0 /2012 [facility] HEMATOLOGY MCV 82.4 80.0 - 11/30 Normal [place] 94.0 [facility] HEMATOLOGY Hgb 12.8 14.0 - 11/30 [facility] [place] 18.0 [facility] HEMATOLOGY RBC 4.78 4.70 - 11/30 Normal [place] 6.10 /2012 [facility] HEMATOLOGY RDW 16.7 11.5 - 11/30 HI [place] 14.5 [facility] Center HEMATOLOGY MCHC 32.6 32.0 - 11/30 [facility] 36.0 /2013 [facility] HEMATOLOGY [facility] 26.9 27.0 - 11/30 LOW [facility] 31.0 /2012 [facility] Pathology Reports No Data Provided for This Section Diagnostic Reports Report Value Date Source Chest 1view DX EXAM: XR CHEST 1 VIEW 07/01/2018 [facility] DATE: 07/01/2018 8:08 CDT Center INDICATION: - SOB COMPARISON: 04/09/2014 TECHNIQUE: AP chest FINDINGS: Lines, tubes and hardware: None. Lungs and pleura: Lungs are clear. Costophrenic sulci are sharp. Heart and mediastinum: normal for technique. Bones: No acute bony abnormality is identified. IMPRESSION: 1. No acute cardiopulmonary abnormality Chest 2 views EXAM: XR CHEST 2 VIEWS 04/09/2014 [facility] DATE: April 09, 2014 at 1743 hours INDICATION: Coughing COMPARISON: November 30, 2012 TECHNIQUE: Frontal and lateral chest radiographs DISCUSSION: No pulmonary or pleural based abnormality is identified. Tortuous ectatic aorta. Pulmonary vascularity is normal. The cardiomediastinal silhouette is normal. No acute bony abnormality is identified. IMPRESSION: No acute cardiopulmonary abnormality identified. Bone length scanogram EXAM: XR LIMB LENGTH SCANOGRAM 1 VIEW 08/16/2013 [facility] DATE: 08/16/2013 at 1115 hours INDICATION: Pain in Joint Involving Lower Leg. COMPARISON: None available. TECHNIQUE: Full length weight bearing AP radiographic examination of bilateral lower limbs, from hips to ankles. DISCUSSION: Distance of weight bearing axis (measured from center of femoral head to midpoint of tibial plafond) to the center of knee joint: Right knee=2.76 cm Left knee=5.09 cm Genu angulation: Right knee varus=6.9 degrees Left knee varus=12.1 degrees IMPRESSION: Full length imaging of the lower limbs for prejoint replacement measurements are as listed above. Knee 3 views EXAM: XR RIGHT KNEE 3 VIEWS 08/16/2013 [facility] DATE: 08/16/2013 at 0917 hours INDICATION: 719.46 Pain in Joint Involving Lower Leg. COMPARISON: None available. TECHNIQUE: 3 views of the right knee DISCUSSION: No acute fracture or malalignment is identified. The bone-on- bone articulation is present within the medial compartment due to severe joint space narrowing. Moderate joint space narrowing is seen in the patellofemoral and lateral compartments. Tricompartmental osteophytosis is present. No excessive joint space fluid is identified. The soft tissues are unremarkable. IMPRESSION: Severe tricompartmental osteoarthrosis of left knee with bone-on -bone articulation within the medial compartment. Renal with Renal INDICATION: Renal insufficiency. 12/01/2012 [facility] vessel Doppler US Center PROCEDURE: The kidneys and renal vessels were aorta with real-time imaging, color Doppler imaging and spectral Doppler. FINDINGS: The right kidney is 12.8 cm in span. A large exophytic cyst measuring 6 x 4.9 x 5.3 cm is present exophytically extending laterally from the lower pole. A second lower pole cyst is present med ially and exophytically and is 2.8 x 3 x 1.9 cm. A small is present anteriorly at the mid polar region and is 1.2 x 0.6 x 1.3 cm. There is no hydronephrosis. There is no solid mass, and the renal parenc hyma has normal echogenicity. The right renal artery has peak systolic velocity of 65 cm/sec with normal Doppler waveform. There is normal flow in the arcuate arteries. There is flow in the right renal vein. The left kidney is 13.4 cm in span. It has a cyst which is 5.2 x 4.9 x 5.2 cm and located in the lower pole laterally and exophytically. A smaller exophytic cyst is present in the upper pole laterally m easuring 1.2 x 1.3 x 1.1 cm. There is no solid mass, and the renal parenchyma has normal echogenicity. There is no hydronephrosis. Flow is present in the left renal vein. The left renal artery has peak systolic velocity 100 cm/sec. There is normal flow in the arcuate arteries throughout. The peak systolic velocity in the abdominal aorta was 75.8 cm/sec. IMPRESSION: 1. There are multiple, simple cysts bilaterally. 2. Normal Doppler exam of the renal vessels. Carotid artery INDICATION: Carotid bruit 12/01/2012 [facility] bilateral Duplex US Center PROCEDURE: The extracranial carotid arteries were evaluated in the neck using real time imaging, color Doppler imaging and spectral Doppler. FINDINGS: The right carotid system had echogenic plaque with calcification in the bulb and proximal internal carotid artery. This did not cause in the dynamically significant stenosis. Flow in the exte rnal carotid artery and the right vertebral artery was antegrade. The ICA to CCA ratio was 1.4. The left carotid system had mild calcified plaque in the carotid bulb with thickening of the sosa in the left internal carotid artery. There was, however , no chemotherapy significant stenosis. Flow in the external carotid artery and the left vertebral artery was antegrade. The ICA to CCA ratio was 0.86. PEAK SYSTOLIC VELOCITY: RIGHT LEFT CCA 83 CM/SEC 110 CM/SEC CAROTID BULB 58 CM/SEC 65 CM/SEC ICA 117 CM/SEC 95 CM/SEC IMPRESSION: Mild atherosclerotic disease is present and slightly more prominent in the left carotid system, especially the left internal carotid artery. There is no hemodynamically significant stenosis Brain wo contrast CT EXAM: CT head without contrast 11/30/2012 [facility] DATE: November 30, 2012 at 1527 INDICATION: Left arm and leg numbness DISCUSSION: Noncontrast images of the head demonstrate no edema, hemorrhage, mass lesion or other intracranial abnormality. Age-related atrophic changes are seen diffusely. The sinuses and skull base are unremarkable. IMPRESSION: Negative exam. Chest 1view EXAM: XR CHEST 1 VIEW 11/30/2012 [facility] DATE: 11/30/2012 at 15:25 hours. INDICATION: Chest pain COMPARISON: None available TECHNIQUE: Single AP view of the chest DISCUSSION: The cardiomediastinal silhouette is normal for technique. There is pulmonary vascular congestion. No acute bony abnormality is identified. Punctate hyperdensity in left midclavicular line may be artifactual or overlying the patient. IMPRESSION: Mild pulmonary vascular congestion. Consultation Notes No Data Provided for This Section Discharge Summaries No Data Provided for This Section History and Physicals No Data Provided for This Section Vital Signs Vital Sign Value Date Comments Source Respitory Rate 28 07/01/2018 [facility] Systolic (mm Hg) 99 07/01/2018 [facility] Diastolic (mm Hg) 54 07/01/2018 [facility] Respitory Rate 26 07/01/2018 [facility] Respitory Rate 23 07/01/2018 [facility] Systolic (mm Hg) 105 07/01/2018 [facility] Diastolic (mm Hg) 58 07/01/2018 [facility] Systolic (mm Hg) 93 07/01/2018 [facility] Diastolic (mm Hg) 53 07/01/2018 [facility] Temperature Oral (F) 97.9 F 06/30/2018 [facility] Temperature Oral (F) 97.0 F 06/30/2018 [facility] Temperature Oral (F) 97.8 F 06/30/2018 [facility] BMI Calculated 28.43 06/30/2018 [facility] Height 185.42 cm 06/30/2018 [facility] Weight 97.727 06/30/2018 [facility] Heart Rate 47 12/02/2012 [facility] Diastolic (mm Hg) 78 12/02/2012 [facility] Temperature Oral (F) 98.1 F 12/02/2012 [facility] Systolic (mm Hg) 161 12/02/2012 [facility] Respitory Rate 20 12/02/2012 [facility] Diastolic (mm Hg) 73 12/02/2012 [facility] Heart Rate 50 12/02/2012 [facility] Respitory Rate 18 12/02/2012 [facility] Systolic (mm Hg) 146 12/02/2012 [facility] Temperature Oral (F) 97.7 F 12/02/2012 [facility] Systolic (mm Hg) 144 12/02/2012 [facility] Respitory Rate 18 12/02/2012 [facility] Temperature Oral (F) 97.4 F 12/02/2012 [facility] Heart Rate 51 12/02/2012 [facility] Diastolic (mm Hg) 67 12/02/2012 [facility] Weight 103.182 12/01/2012 [facility] Height 182.88 cm 12/01/2012 [facility] Height 182.88 cm 11/30/2012 [facility] Weight 102.273 11/30/2012 [facility] Encounters Location Location Encounter Encounter Reason Attending ADM DC Status Source Details Type Number For Provider Date Date Visit [facility] OU [id number] JASMINE 11/30 12/02 Discharg [facility] JOHN /2012 [facility] Outpt Diag [id number] Ranjan 08/16 08/17 [facility] Payam /2013 [facility] Inpatient [id number] [place] 06/30 07/01 [facility] Feng /2018 [facility] Procedures Procedure Code Date Perfomer Comments Source Chemotherapy [id number] [facility] Lymphadenotomy [id number] [facility] Placement of stent [id number] [facility] cardiac conduit [facility] XRT - Radiotherapy [id number] [facility] Chemotherapy [id number] [facility] Lymphadenotomy [id number] [facility] Placement of stent [id number] [facility] cardiac conduit [facility] XRT - Radiotherapy [facility] Assessment and Plan Assessment and Plan Date Source Extracted from:Title: [place] PCCM Consult Note 07/01/2018 [facility] Author: J Carlos Lopez MD Date: 06/30/18 Impression and Plan Problem List L Carotid artery stenosis s/p stent 06/30 Essential HTN CAD s/p stent HLD h/o prostate and parotid Ca Plan Neuro: normal mentation. no c/o pain CVS: hemodynamically stable. ASA, plavix, statin and BB. Cont home antihypertensives Pulm: supplemental O2 as needed. Volume expansion protocol (VEP) , Encourage IS GI: heart healthy diet. Bowel regimen as needed Endo: ICU insulin protocol to keep glucose <180 Renal/: Monitor urine output and replace electrolytes per protocol ID: Afebrile Heme: Monitor CBC, transfuse blood products as needed MSK/Skin/Activity: PT/OT, OOB to chair Prophylaxis: VTE prophylaxis: sc heparin when ok with cards I have seen and examined the pt with the fellow Dr Ortiz and I agree with her assessment and plan. I have also reviewed all the lab data, chest Xrays and have communicated the plan with the bedside nurse and the cardiology team. Plan of Care No Data Provided for This Section Social History Social History Date Source Social History TypeResponse 06/30/2018 [facility] Smoking Status Never smoker; Exposure to Tobacco Smoke None; Cigarette Smoking Last 365 Days No; Reg Smoking Cessation Counseling No entered on: 06/30/18 Social History TypeResponse 08/17/2013 DENISE Lackey Family History No Data Provided for This Section Advance Directives No Data Provided for This Section Functional Status No Data Provided for This Section
--- OUTSIDE RECORDS SUMMARY | 2018-10-15 09:57 | XMS REPORT | CCD ---
:1930 Author Organization [facility] Care Team Providers Name Role Phone BenjamínGil reyna Leo Consulting Provider Allergies, Adverse Reactions, Alerts Substance Reaction Status NKDA Active Problem List Condition Effective Dates Status Cancer Resolved Cholesterol Resolved HTN - Hypertension Resolved Prostate cancer Resolved Medications Medication Instructions Start Date End Date Status allopurinol 300 mg, PO, Daily, 11/30/2012 Suspended Substitution Allowed lisinopril 40 mg, PO, BID, 11/30/2012 Suspended Substitution Allowed sotalol 80 mg, PO, BID, 11/30/2012 Suspended Substitution Allowed Protonix 40 mg, 1 tab, Route: PO, 12/01/2012 12/02/2012 Discontinued Drug form: ECTAB, Before Dinner, Start date: 12/01/12 16:30:00, Duration: 30 day, Stop date: 12/30/12 16:30:00 Prilosec 20 mg oral 20 mg, 1 cap, PO, BID, 11/30/2012 Suspended delayed release capsule 30 cap, Substitution Allowed multivitamin 1 tab, PO, Daily, 11/30/2012 Suspended Substitution Allowed, Maintenance ibuprofen 400 mg, 1 tab, Route: 11/30/2012 11/30/2012 Completed PO, Drug form: TAB, ONCE, Dosing Weight 102.273, kg, Start date: 11/30/12 20:47:00, Stop date: 11/30/12 20:47:00 influenza virus vaccine, 0.5 ml, Route: IM, Drug 01/29/2008 01/29/2008 Completed inactivated Form: INJ, ONCE, Start date: 01/29/08 9:00:00, Stop date: 01/29/08 9:00:00 aspirin 81 mg, PO, Daily, 11/30/2012 Ordered Substitution Allowed sotalol 80 mg, 1 tab, Route: PO, 12/01/2012 12/02/2012 Discontinued Drug form: TAB, BID, Dosing Weight 103.182, kg, Start date: 12/01/12 9:00:00, Duration: 30 day, Stop date: 12/30/12 17:00:00 Prilosec 20 mg, Route: PO, Drug 12/01/2012 12/01/2012 Deleted form: DRC, BID, Dosing Weight 103.182, kg, Start date: 12/01/12 9:00:00, Duration: 30 day, Stop date: 12/30/12 17:00:00 multivitamin 1 tab, Route: PO, Drug 12/01/2012 12/02/2012 Discontinued Form: TAB, Dosing Weight 103.182, kg, Daily, Start date: 12/01/12 9:00:00, Duration: 30 day, Stop date: 12/30/12 9:00:00 lisinopril 40 mg, 2 tab, Route: PO, 12/01/2012 12/02/2012 Discontinued Drug form: TAB, BID, Dosing Weight 103.182, kg, Start date: 12/01/12 9:00:00, Duration: 30 day, Stop date: 12/30/12 17:00:00 aspirin 81 mg, 1 tab, Route: PO, 12/01/2012 12/02/2012 Discontinued Drug form: CHEWTAB, Daily, Dosing Weight 103.182, kg, Start date: 12/01/12 9:00:00, Duration: 30 day, Stop date: 12/30/12 9:00:00 allopurinol 300 mg, 1 tab, Route: 12/01/2012 12/02/2012 Discontinued PO, Drug form: TAB, Daily, Dosing Weight 103.182, kg, Start date: 12/01/12 9:00:00, Duration: 30 day, Stop date: 12/30/12 9:00:00 nitroglycerin 0.4 mg, 1 tab, Route: 11/30/2012 11/30/2012 Completed SL, Drug form: TAB, ONCE, Dosing Weight 102.273, kg, Priority: STAT, Start date: 11/30/12 14:41:00, Stop date: 11/30/12 14:41:00 Saline Flush 0.9% 5 mL, Route: IVP, Drug Form: INJ, Dosing Weight 102.273, kg , Q8H, PRN Line Flush, Start date: 11/30/12 14:37:00, Duration: 30 day, Stop date: 12/30/12 14:36:00, Administer at least once every 8 hours 11/30/2012 Discontinued Administer at least once every 8 hours fentanyl 50 microgram, 1 mL, 11/30/2012 11/30/2012 Completed Route: IVP, Drug form: INJ, ONCE, Dosing Weight 102.273, kg, Priority: STAT, Start date: 11/30/12 15:34:00, Stop date: 11/30/12 15:34:00 Cardene 40 mg in NS 200 ml 40 mg, 200 mL, Rate: 11/30/2012 11/30/2012 Discontinued IV 40 mg Titrate, Dosing Weight 102.273, kg, Route: IV, Total Volume: 200 mL, Duration: 30 day, Stop date: 12/30/12 15:33:00, Replace Every: 24 hr morphine Sulfate 2 mg, 1 mL, Route: IVP, 11/30/2012 11/30/2012 Completed Drug form: INJ, ONCE, Dosing Weight 102.273, kg, Priority: STAT, Start date: 11/30/12 14:40:00, Stop date: 11/30/12 14:40:00 amLODipine 5 mg, 1 tab, Route: PO, 12/01/2012 12/02/2012 Discontinued Drug form: TAB, Daily, Dosing Weight 102.273, kg, Start date: 12/01/12 9:00:00, Duration: 30 day, Stop date: 12/30/12 9:00:00 Immunizations Vaccine Date Status influenza virus vaccine, inactivated 01/29/2008 Auth (Verified) Vital Signs Most recent to oldest 1 2 3 [Reference Range]: Height 182.88 cm 182.88 cm (11/30/2012 21:35:00) (11/30/2012 13:32:00) Temperature Oral 98.1 DegF 97.7 DegF 97.4 DegF [96.4-99.1 DegF] (12/02/2012 10:02:00) (12/02/2012 06:04:00) (12/02/2012 01: 00:00) Systolic Blood Pressure 161 mmHg 146 mmHg 144 mmHg [90-140 mmHg] *HI* *HI* *HI* (12/02/2012 10:02:00) (12/02/2012 06:04:00) (12/02/2012 01:00:00) Diastolic Blood Pressure 78 mmHg 73 mmHg 67 mmHg [60-90 mmHg] (12/02/2012 10:02:00) (12/02/2012 06:04:00) (12/02/2012 01:00: 00) Respiratory Rate [14-20 20 BRMIN 18 BRMIN 18 BRMIN BRMIN] (12/02/2012 10:02:00) (12/02/2012 06:04:00) (12/02/2012 01:00:00) Peripheral Pulse Rate 47 bpm 50 bpm 51 bpm [60-100 bpm] *LOW* *LOW* *LOW* (12/02/2012 10:02:00) (12/02/2012 06:04:00) (12/02/2012 01:00:00) Weight 103.182 kg 102.273 kg (11/30/2012 21:35:00) (11/30/2012 13:32:00) Results CHEMISTRY Most recent to oldest 1 2 3 [Reference Range]: Sodium Lvl [135-145 mEq/L] 141 mEq/L 141 mEq/L 138 mEq/L (12/02/2012 06:08:00) (12/01/2012 01:32:00) (11/30/2012 14:37:00) Potassium Lvl [3.5-5.1 4.3 mEq/L 4.0 mEq/L 4.2 mEq/L mEq/L] (12/02/2012 06:08:00) (12/01/2012 01:32:00) (11/30/2012 14:37:00) Chloride Lvl [95-109 mEq/L] 106 mEq/L 104 mEq/L 103 mEq/L (12/02/2012 06:08:00) (12/01/2012 01:32:00) (11/30/2012 14:37:00) CO2 [24-32 mEq/L] 26 mEq/L 29 mEq/L 32 mEq/L (12/02/2012 06:08:00) (12/01/2012 01:32:00) (11/30/2012 14:37:00) AGAP [10.0-20.0 mEq/L] 13.3 mEq/L 12.0 mEq/L 7.2 mEq/L (12/02/2012 06:08:00) (12/01/2012 01:32:00) *LOW* (11/30/2012 14:37:00) Creatinine Lvl [0.5-1.4 0.8 mg/dL 0.9 mg/dL 0.9 mg/dL mg/dL] (12/02/2012 06:08:00) (12/01/2012 01:32:00) (11/30/2012 14:37:00) eGFR 83 mL/min/1.73m2 1 79 mL/min/1.73m2 2 79 mL/min/1.73m2 3 *NA* *NA* *NA* (12/02/2012 06:08:00) (12/01/2012 01:32:00) (11/30/2012 14:37:00) BUN [7-22 mg/dL] 21 mg/dL 16 mg/dL 16 mg/dL (12/02/2012 06:08:00) (12/01/2012 01:32:00) (11/30/2012 14:37:00) B/C Ratio [6-25] 18 (11/30/2012 14:37:00) Glucose Lvl [70-99 mg/dL] 100 mg/dL 4 106 mg/dL 5 101 mg/dL 6 *HI* *HI* *HI* (12/02/2012 06:08:00) (12/01/2012:32:00) (11/30/2012 14:37:00) Total Protein [6.4-8.4 7.2 g/dL g/dL] (11/30/2012 14:37:00) Albumin Lvl [3.5-5.0 g/dL] 3.1 g/dL *LOW* (11/30/2012 14:37:00) Globulin [2.0-4.0 g/dL] 4.1 g/dL *HI* (11/30/2012 14:37:00) A/G Ratio [0.7-1.6] 0.8 (11/30/2012 14:37:00) Calcium Lvl [8.5-10.5 8.0 mg/dL 8.0 mg/dL 8.9 mg/dL mg/dL] *LOW* *LOW* (11/30/2012 14:37:00) (12/02/2012 06:08:00) (12/01/2012 01:32:00) Phosphorus [2.5-4.5 mg/dL] 3.3 mg/dL (11/30/2012 14:37:00) Magnesium Lvl [1.8-2.4 2.0 mg/dL mg/dL] (11/30/2012 14:37:00) ALT [0-65 unit/L] 28 unit/L (11/30/2012:37:00) AST [0-37 unit/L] 26 unit/L (11/30/2012:37:00) Alk Phos [39-136 unit/L] 105 unit/L (11/30/2012:37:00) Bili Total [0.2-1.3 mg/dL] 0.4 mg/dL (11/30/2012 14:37:00) Total CK [12-191 unit/L] 60 unit/L 34 unit/L (11/30/2012 20:45:00) (11/30/2012 14:37:00) Troponin-T [0.000-0.100 <0.010 ng/mL <0.010 ng/mL ng/mL] (11/30/2012 20:47:00) (11/30/2012 14:37:00) Troponin-I [0.00-0.40 <0.02 ng/mL <0.02 ng/mL ng/mL] (11/30/2012 20:47:00) (11/30/2012 14:37:00) TSH [0.360-3.740 uIU/mL] 2.450 uIU/mL (12/01/2012 01:32:00) 1Result Comment: The eGFR is calculated using the CKD-EPI formula. In most young , healthy individualsthe eGFR will be >90 mL/min/1.73m2. The eGFR declines with age. An eGFR of 60-89 may be normal in some populations, particularly the elderly, for whom the CKD-EPI formula has not been extensively validated. Use of the eGFR is not recommended in the following populations: Individuals with unstable creatinine concentrations, including patients and those with serious co-morbid conditions. Patients with extremes in muscle mass or diet. The data above are obtained from the National Kidney Disease Education Program ( NKDEP) which additionally recommends that when the eGFR is used in patients with extremes of body mass index for purposesof drug dosing, the eGFR should be multiplied by the estimated BMI.2Result Comment: The eGFR is calculated using the CKD-EPI formula. In most young, healthy individualsthe eGFR will be >90 mL/ min/1.73m2. The eGFR declines with age. An eGFR of 60-89 may be normal in some populations, particularly the elderly, for whom the CKD-EPI formula has not been extensively validated. Use of the eGFR is not recommended in the following populations: Individuals with unstable creatinine concentrations, including patients and those with serious co-morbid conditions. Patients with extremes in muscle mass or diet. The data above are obtained from the National Kidney Disease Education Program ( NKDEP) which additionally recommends that when the eGFR is used in patients with extremes of body mass index for purposesof drug dosing, the eGFR should be multiplied by the estimated BMI.3Result Comment: The eGFR is calculated using the CKD-EPI formula. In most young, healthy individualsthe eGFR will be >90 mL/ min/1.73m2. The eGFR declines with age. An eGFR of 60-89 may be normal in some populations, particularly the elderly, for whom the CKD-EPI formula has not been extensively validated. Use of the eGFR is not recommended in the following populations: Individuals with unstable creatinine concentrations, including patients and those with serious co-morbid conditions. Patients with extremes in muscle mass or diet. The data above are obtained from the National Kidney Disease Education Program ( NKDEP) which additionally recommends that when the eGFR is used in patients with extremes of body mass index for purposesof drug dosing, the eGFR should be multiplied by the estimated BMI.4Interpretive Data: Adult reference range values reflect the clinical guidelines of the [employer].5Interpretive Data: Adult reference range values reflect the clinical guidelines of the [employer].6Interpretive Data: Adult reference range values reflect the clinical guidelines of the [employer].HEMATOLOGY Most recent to oldest 1 2 3 [Reference Range]: WBC [3.7-10.4 K/CMM] 5.2 K/CMM 5.9 K/CMM 5.0 K/CMM (12/02/2012 06:08:00) (12/01/2012 01:32:00) (11/30/2012 14:37:00) RBC [4.70-6.10 M/CMM] 4.55 M/CMM 4.96 M/CMM 4.78 M/CMM *LOW* (12/01/2012 01:32:00) (11/30/2012 14:37:00) (12/02/2012 06:08:00) Hgb [14.0-18.0 g/dL] 12.3 g/dL 13.2 g/dL 12.8 g/dL *LOW* *LOW* *LOW* (12/02/2012 06:08:00) (12/01/2012 01:32:00) (11/30/2012 14:37:00) Hct [42.0-54.0 %] 38.1 % 41.7 % 39.4 % *LOW* *LOW* *LOW* (12/02/2012 06:08:00) (12/01/2012 01:32:00) (11/30/2012 14:37:00) MCV [80.0-94.0 fL] 83.8 fL 84.0 fL 82.4 fL (12/02/2012 06:08:00) (12/01/2012 01:32:00) (11/30/2012 14:37:00) MCH [27.0-31.0 pg] 27.1 pg 26.7 pg 26.9 pg (12/02/2012 06:08:00) *LOW* *LOW* (12/01/2012 01:32:00) (11/30/2012 14:37:00) MCHC [32.0-36.0 g/dL] 32.3 g/dL 31.8 g/dL 32.6 g/dL (12/02/2012 06:08:00) *LOW* (11/30/2012 14:37:00) (12/01/2012 01:32:00) RDW [11.5-14.5 %] 17.1 % 17.5 % 16.7 % *HI* *HI* *HI* (12/02/2012 06:08:00) (12/01/2012 01:32:00) (11/30/2012 14:37:00) Platelet [133-450 K/CMM] 169 K/CMM 185 K/CMM 214 K/CMM (12/02/2012 06:08:00) (12/01/2012 01:32:00) (11/30/2012 14:37:00) MPV [7.4-10.4 fL] 8.3 fL 8.3 fL 8.2 fL (12/02/2012 06:08:00) (12/01/2012 01:32:00) (11/30/2012 14:37:00) Segs [45.0-75.0 %] 61.8 % 67.1 % 64.9 % (12/02/2012 06:08:00) (12/01/2012 01:32:00) (11/30/2012 14:37:00) Lymphocytes [20.0-40.0 %] 24.0 % 19.3 % 22.0 % (12/02/2012 06:08:00) *LOW* (11/30/2012 14:37:00) (12/01/2012 01:32:00) Monocytes [2.0-12.0 %] 10.1 % 8.8 % 9.1 % (12/02/2012 06:08:00) (12/01/2012 01:32:00) (11/30/2012 14:37:00) Eosinophils [0.0-4.0 %] 3.4 % 4.1 % 3.2 % (12/02/2012 06:08:00) *HI* (11/30/2012 14:37:00) (12/01/2012 01:32:00) Basophils [0.0-1.0 %] 0.7 % 0.7 % 0.8 % (12/02/2012 06:08:00) (12/01/2012 01:32:00) (11/30/2012 14:37:00) Segs-Bands # [1.5-8.1 3.2 K/CMM 3.9 K/CMM 3.2 K/CMM K/CMM] (12/02/2012 06:08:00) (12/01/2012 01:32:00) (11/30/2012 14:37:00) Lymphocytes # [1.0-5.5 1.2 K/CMM 1.1 K/CMM 1.1 K/CMM K/CMM] (12/02/2012 06:08:00) (12/01/2012 01:32:00) (11/30/2012 14:37:00) Monocytes # [0.0-0.8 K/CMM] 0.5 K/CMM 0.5 K/CMM 0.5 K/CMM (12/02/2012 06:08:00) (12/01/2012 01:32:00) (11/30/2012 14:37:00) Eosinophils # [0.0-0.5 0.2 K/CMM 0.2 K/CMM 0.2 K/CMM K/CMM] (12/02/2012 06:08:00) (12/01/2012 01:32:00) (11/30/2012 14:37:00) Basophils # [0.0-0.2 K/CMM] 0.0 K/CMM (11/30/2012 14:37:00) PT [12.0-14.7 seconds] 13.5 seconds (11/30/2012 14:37:00) INR [0.85-1.17] 1.04 7 (11/30/2012 14:37:00) PTT [22.9-35.8 seconds] 35.4 seconds 8 (11/30/2012 14:37:00) 7Interpretive Data: RECOMMENDED RANGES FOR PROTIME INR: 2.0-3.0 for most medical and surgical thromboembolic states. 2.5-3.5 for artificial heart valves and recurrent embolism. INR SHOULD BE USED ONLY FOR PATIENTS ON STABLE ANTICOAGULANT THERAPY.8Interpretive Data: Heparin Therapeutic Range: 57 - 92 Seconds Procedures Procedures Date Related Diagnosis Chemotherapy Lymphadenotomy Placement of stent in cardiac conduit XRT - Radiotherapy
--- OUTSIDE RECORDS SUMMARY | 2018-10-15 09:58 | XMS REPORT ---
:1930 [facility] [address] [place] [address] [address] [place] [address] Care Team Providers Name Role Phone Unavailable Unavailable Unavailable Problems This patient has no known problems. Allergies, Adverse Reactions, Alerts This patient has no known allergies or adverse reactions. Medications This patient has no known medications. Encounters Start End Encounter Admission Attending Care Care Encounter Date/Time Date/Time Type Type Clinicians Facility Department ID 2018-09-11 Inpatient [facility] [id number] 16:19:25 2018-09-08 Inpatient E [facility] [id number] 13:44:00 2018-09-08 2018-09-08 Outpatient [facility] [id number] 17:11:00 17:11:00 2018-06-30 2018-06-30 Inpatient [facility] CAR [id number] 09:09:00 06:10:00
--- NOTE | 2018-10-15 11:48 | R.HP ---
FACILITY: [facility] ENCOUNTER DATE AND TIME: 10/15/2018 11:46 (CDT) MR#: [id number] NAME JILLIAN WOODRUFF ADDRESS: [address] [place] [address] CITY: [place]IP [address] PHONE: DATE OF : 1930 AGE: 87 SSN# [id number] GENDER: Male DEXTERITY Right-handed MARITAL STATUS RACE White PRE-HOSPITAL LIVING SETTING 01 - Home (private home/apt. board/care, assisted living, intermediate, transitional living) PRE-HOSPITAL LIVING WITH Family/Relatives ENCOUNTER PHYSICIAN: Dr. Chelly Limon REFERRING DOCTOR: katarina Huff DATE OF ADMISSION: 10/15/2018 09:52 (CDT) REFERRING FACILITY [facility] HOME TYPE AND DETAILS: Type of home: single family house # of levels in the residence: 1 # of steps to enter the residence: 0 # of steps within the residence: 0 ADMISSION DIAGNOSIS: Right Hip Intertrochanteric Fracture ONSET DATE: 09/08/2018 PRIMARY DIAGNOSIS-RELATED SURGERIES: Cephalomedullary Nailing Right Femur- performed by Katarina Huff on 09/09/2018 SECONDARY/COMORBID DIAGNOSES (TIERED): - N/A ATRIAL FIBRILLATION CAD HTN GOUT GERD PROSTATE CANCER HISTORY OF PRESENT ILLNESS (HPI): Pt. is a 87 yo Right-handed white male. On 09/08/2018 he was admitted to [facility] with diagnosis Right Hip Intertrochanteric Fra cture. His impairment category is Orthopaedic Disorders 08 - Unilateral Hip Fracture (08.11). Pre-morbidly, Pt. was independent/mod-I in Self-Care, Sphincter Control, Transfers Control, Locomotio n, Communication, and Social Cognition; and he had good Sphincter Control. Currently, he has deficits of Self-Care, Transfers Control, Locomotion, Endurance, Balance, and Safet y Awareness. Pt. is now referred to [facility] for acute in-patient rehabilitation in order to maximize patient's functional independence in activities of daily living, strength, ROM, and mobi lity. Patient has realistic goal of being discharged at assistance level 6-Nini to reside at Home with Fam lizzy/Relatives. Jillian Woodruff is an 87 old male that lives in a single chelo house with his . On 09/08/2018, he fell and was admitted at [facility]. He is now medically stable but in need of 24-hour nursing, doctor supervision and oversite while receiving participate in 3hours of therapy a day/15 hours per week and receive care with an intensive interdisciplinary approach. MEDICATION ALLERGIES: No Known Drug Allergies (NKDA) ENVIRONMENTAL ALLERGIES: None Known - Substance Allergies None Known - Other Allergies None Known PAST MEDICAL HISTORY: ATRIAL FIBRILLATION CAD GERD GOUT HTN PROSTATE CANCER FAMILY HISTORY: Family history is not contributory. SOCIAL HISTORY: - Home Living Family/Relatives REVIEW OF SYSTEMS: - Gen No Chills No Fatigue No Fever - Eyes No Double Vision No itchiness - ENMT No Difficulty Swallowing - CVS No Chest Discomfort No Chest Pain No Fatigue No Weight Gain - Resp No Cough No Shortness of Breath - GI Continent No Abdominal Pain No Constipation No Diarrhea - Continent No Kidney Pain No Painful Urination No Urinary Urgency - MSK No Joint Pain No Muscle Cramps No Stiffness - Skin No Itching No Rash No Suspicious Lesions - Neuro No Coordination Difficulty No Difficulty with Concentration No Memory Loss No Seizures No Weakness - Psych No Anxiety No Depression No HIV Exposure No Persistent Infections No Seasonal Allergies - Endo No Cold/Heat Intolerance No Excessive Hunger No Excessive Thirst No Excessive Urination PHYSICAL EXAM - Gen Alert and awake Lying in bed No apparent distress Oriented to: person, time, and place - Vital Signs Temperature: 98.5 F SBP/DBP: 152/88 Pulse: 62 Resp: 16 Vital signs stable, afebrile - CVS RRR VITAL SIGNS Temperature: 98.5 F SBP/DBP: 152/88 Pulse: 62 Resp: 16 Vital signs stable, afebrile NURSING: - Shower allowing shower - Skin care per protocol PRECAUTIONS: - Posterior Hip Precaution No adduction across midline No external rotation No hip flexion >90 degrees No internal rotation No wheel chair propulsion - Weight Bearing Precaution WBAT right LE ACTIVITIES OOB only with supervision FUNCTIONAL STATUS: - Self-Care A. Eating Ind sup B. Grooming Ind sup C. Bathing Ind sup D. Dressing - Upper Ind Brady E. Dressing - Lower Ind modA F. Toileting Ind modA - Sphincter Control G: Bladder control Ind Ind H: Bowel control Ind Ind - Transfers Control I. Bed/Chair/Wheelchair Ind modA J. Toilet Ind modA K. Tub/Shower Ind ADNO - Locomotion L. Walk/Wheelchair (C) Ind maxA L. Walk/Wheelchair (W) Ind maxA M. Stairs Ind ADNO - Communication N. Comprehension (B) Ind Ind O. Expression (B) Ind Ind - Social Cognition P. Social Interaction Ind Ind Q. Problem Solving Ind Ind R. Memory Ind Ind - Endurance Fair - Balance Fair - Safety Awareness Fair CURRENT FUNC. DEFICITS: Self-Care, Transfers Control, Locomotion, Endurance, Balance, and Safety Awareness MEDICATIONS: - Other See attached MAR (Medication Administration Record) ASSESSMENT: Pt. is a 87 yo Right-handed white male.On 09/08/2018 he was admitted to [facility] with di agnosis Right Hip Intertrochanteric Fracture.His impairment category is Orthopaedic Disorders 08 - U nilateral Hip Fracture (08.).Pre-morbidly, Pt. was independent/mod-I in Self-Care, Sphincter Contro l, Transfers Control, Locomotion, Communication, and Social Cognition; and he had good Sphincter Cont rol.Currently, he has deficits of Self-Care, Transfers Control, Locomotion, Endurance, Balance, and S afety Awareness.Pt. is now referred to [facility] for acute in-patient rehabil itation in order to maximize patient's functional independence in activities of daily living, strengt h, ROM, and mobility.- Rehab Goal Patient has realistic goal of being discharged at assistance level 6-Nini to reside at Home with Fam lizzy/Relatives. Jillian Woodruff is an 87 old male that lives in a single chelo house with his . On 09/08/2018, he fell and was admitted at [facility]. He is now medically stable but in need of 24-hour nursing, doctor supervision and oversite while receiving participate in 3hours of therapy a day/15 hours per week and receive care with an intensive interdisciplinary approach.REHAB PLAN: - Physical Therapy Decreased range of motion - to improve, our physical therapists will perform initial evaluation of pt 's status upon admission and devise an individualized program for increasing patient's Range of Motio n. Gait dysfunction - to improve, our physical therapists will perform initial evaluation of pt's status upon admission and devise an individualized program for Gait Training, and Wheel Chair mobility Inability to transfer - to improve, our physical therapists will perform initial evaluation of pt's s tatus upon admission and devise an individualized program for Bed mobility Need for home safety evaluation - to improve, our physical therapists will perform initial evaluation of pt's status upon admission and devise an individualized program for Home Evaluation Need in caregiver upon discharge - to improve, our physical therapists will perform initial evaluatio n of pt's status upon admission and devise an individualized program for Caregiver Training New precaution - to improve, our physical therapists will perform initial evaluation of pt's status u drew admission and devise an individualized program for Patient precaution education Poor balance - to improve, our physical therapists will perform initial evaluation of pt's status upo n admission and devise an individualized program for Balance Training Poor endurance - to improve, our physical therapists will perform initial evaluation of pt's status u drew admission and devise an individualized program for Endurance Training Weakness - to improve, our physical therapists will perform initial evaluation of pt's status upon ad mission and devise an individualized program for Aquatic Therapy, Neuromuscular Reeducation, and Stre ngthening Achieving independence - to improve, our physical therapists will perform initial evaluation of pt's status upon admission and devise an individualized program for Community Reintegration Activities - Occupational Therapy ADL deficits - to improve, our occupation therapists will perform initial evaluation of pt's status u drew admission and devise an individualized program for Bathing, Bed mobility, Community Reintegration , Cooking, Dressing, Eating, Fine Motor Skills, Grooming, Homemaking, Kitchen Mobility, Laundry, Willa ent Education, Safety Awareness, Splinting - Positioning, Transfers(Toilet, Tub, Shower), and Wheel C hair Management Need for care coordinator - to improve, our occupation therapists will perform initial evaluation of pt's s tatus upon admission and devise an individualized program for Caregiver Training Weakness - to improve, our occupation therapists will perform initial evaluation of pt's status upon admission and devise an individualized program for Aquatic Therapy, Balance, Endurance, UE ROM, and U E strengthening MEDICAL PLAN: - Anterior Hip Precaution No abduction No active extension No adduction across midline No external rotation No hip flexion >90 degrees No internal rotation - Diet - Liquid Texture Start Regular - Tube Feed Start N/A - Diet Type Start Regular - Posterior Hip Precaution No adduction across midline No external rotation No hip flexion >90 degrees No internal rotation No wheel chair propulsion - Weight Bearing Precaution WBAT right LE - Skin care per protocol - Other See attached MAR (Medication Administration Record) - Diet - Solid Texture Regular - Shower shower DISCHARGE PLAN: - Estimated Length of Stay (days) 14. - Consensus on plan Discharge plan has been discussed with primary caregiver. Patient/Family is in agreement with the justin n. Primary caregiver is in agreement with the plan. - Patient/Family Goals Return home with assistance. - Planned Living Setting Upon Discharge Home, to live with Family/Relatives. Transitional Living. SIGNATURE PANEL: (CDT)
--- NOTE | 2018-10-15 11:56 | PAPE ---
PATIENT: [facility] MR# [id number] REFERRING DOCTOR galo Huff EVALUATION DATE AND TIME 10/15/2018 11:55 (CDT) NAME JILLIAN JARQUIN DATE OF 1930 AGE 87 PHONE SSN# [id number] GENDER male EVALUATING PHYSICIAN Dr. Chelly Limon ADMISSION DIAGNOSIS: Right Hip Intertrochanteric Fracture ONSET DATE 09/08/2018 SECONDARY/COMORBID DIAGNOSES TIERED: - N/A ATRIAL FIBRILLATION CAD HTN GOUT GERD PROSTATE CANCER POST-ADMISSION FUNCTIONAL/MEDICAL STATUS: - Bladder Same accident frequency: Ind - No accidents in the past 7 days - Bowel Same accident frequency: Ind - No accidents in the past 7 days - Walking Same score based on distance walked: 0(N/A) - Wheelchair Same score based on distance traveled: 0(N/A) STATUS CHANGE EVALUATION: No change in Functional or Medical Status is identified compared with Pre-Admission screening. PATIENT NEEDS CLOSE MEDICAL SUPERVISION BY A REHABILITATION PHYSICIAN FOR: Bowel and Bladder Management Coordination of Treatment Team Medical and Co-Morbidity Management PATIENT REQUIRES 24X7 REHAB NURSING FOR MEDICAL AND FUNCTIONAL MGT. 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/Training Manager Furniture/Case Management LIST OF IDENTIFIED AND POTENTIAL PROBLEMS: Alteration in leisure activities Bladder, Incontinence Bowel, Incontinence Infection, Actual or Potential Mobility Impaired Pain, Alteration in Comfort Self Care Deficit Skin Integrity, Actual or Potential Urinary Tract Infection (UTI), Actual or Potential RISK FOR COMPLICATIONS - Atrial Fibrillation CVA. Heart failure. Limb embolus. - CAD CHF. Cardiac Arrest. AK. Pain. - GERD Alteration in sleep. Aspiration. Dehydration. Malnutrition. Pain. INTERVENTIONS - Atrial Fibrillation Anticoagulation. Medications. VS. - CAD 02 sats. Activity management. Medications. VS. - GERD Altered diet. Elevation of head of bed. Medications. Nausea/vomiting. Nighttime food/fluid restrictio ns. Nutrition. PATIENT COULD BE AT RISK FOR COMPLICATIONS FROM ADVERSE MEDICAL CONDITIONS DUE TO HIS/HER COMORBIDITI ES AND THE RIGORS OF THE INTENSIVE REHABILLITATION PROGRAM. METHODS OR INTERVENTIONS TO AVOID COMPLIC ATIONS INCLUDE: - Infection Clinical staff to assess and manage the signs and symptoms of infection including fever, redness, war mth, etc. - Urinary Tract Infection - Falls Patient will be evaluated for Fall Precautions and will be placed on Fall Precautions as indicated pe r protocol. - Skin Breakdown Nursing will assess skin daily using assessment tool and will place on Skin Breakdown Precautions as indicated per protocol. - Pain Clinical staff may employ non-medication methods such as massage, distraction, decrease stimulus, etc . as needed. Clinical staff will assess patient's pain level every shift per protocol to assess and e nsure pain management effectiveness. Medications will be given and the pain level re-assessed. PRELIMINARY PLAN OF CARE: - Physical Therapy Patient needs Physical Therapy for a daily minimum of 1.5 hours at least 5 out of 7 days, to improve: Mobility, Strengthening, Transfers, Stretching, ROM, Endurance, Ability to manage stairs, Gait, and Balance. - Speech Therapy Patient needs Speech Therapy for a daily minimum of 1 hours at least 5 out of 7 days, to improve: Swa llowing, Cognition, Language Skills, and Compensatory Strategies. - Rehabilitation Nursing Patient requires 24x7 Rehabilitation Nursing for: Pain Issues, Identifying and preventing risk factor s, Monitoring and reporting current medical conditions, Assisting with ambulation and transfer, Luz ting with all ADL-s, Teaching patients about disease process and medications, Family teaching, Provid ing safe environment, Bowel and Bladder Issues, Skin Integrity, and Medication Management. Patient needs Manager Furniture and/or Case Management for: Discharge Planning, Arranging Home Equipmen t or Services, and Family Interventions. - Dietary and Nutrition Services Patient needs Dietary and Nutrition Services for: Adequate Nutrition, Nutritional Supplements, and Nu tritional Education. - Occupational Therapy Patient needs Occupational Therapy for a daily minimum of 1.5 hours at least 5 out of 7 days, to impr ove Activities of Daily Living, including: Eating, Grooming, Bathing, Dressing, Toileting, Toilet Tra nsfers, Community Reintegration, Higher functional activities, Adaptive Equipment, Splinting, Househo ld Tasks, and Other activities as determined. POTENTIAL FUNCTIONAL GOALS FOR PATIENT TO ACHIEVE BY DISCHARGE: - Safety Precaution Patient will remain free from falls or injury at time of discharge. - Bed Mobility Patient will perform bed mobility at 4-Brady level of assistance. - Transfers Patient will complete transfers from bed to chair at 4-Brady level of assistance. - Mobility Patient will ambulate 150 ft with 4-Brady level of assistance with RW. PATIENT REHAB POTENTIAL Rodriguez JARQUIN is able and expected to receive 3 hours of individualized therapy daily on at least 5 of debra ry 7 days Rodriguez BRITOs prognosis for significant practical improvement within a reasonable period of time appears Good Expected level of measurable improvement will be of a practical value to Rodriguez BRITOs functional capaci ty or adaptations to impairments Has a viable Discharge Plan Medically appropriate; condition is sufficiently stable to participate in intensive rehab program DISCHARGE PLAN: - Estimated Length of Stay (days) 14. - Consensus on plan Discharge plan has been discussed with primary caregiver. Patient/Family is in agreement with the justin n. Primary caregiver is in agreement with the plan. - Patient/Family Goals Return home with assistance. - Planned Living Setting Upon Discharge Home, to live with Family/Relatives. Transitional Living. CONCLUSION ON REHABILITATION NECESSITY: I have evaluated patient's pre-admission functional status and, comparing it to the patient's post-ad mission functional status now, I conclude that the pre-admission assessment was accurate. Patient's c ondition on admission supports the medical necessity of admission to IRF. It is safe to proceed with patient's therapy program. SIGNATURE PANEL: (CDT)
[2018-10-15] MEDS ORDERED: POLYETHYL GLY 3350 17 GM/DOSE PO PRN (12:44)
[2018-10-15] MEDS ORDERED: FLUTICASONE 50MCG NASAL SPRAY NAS PRN (12:44)
[2018-10-15] MEDS ORDERED: MELATONIN 3 MG TABLET PO PRN (12:44)
[2018-10-15] MEDS: GABAPENTIN 400 MG CAP PO SCH ×2 (15:09→20:39)
--- NOTE | 2018-10-15 16:48 | FAST ---
ENCOUNTER DATE AND TIME: 10/15/2018 08:00 (CDT) NAME JILLIAN JARQUIN DATE OF : 1930 DATE OF ADMISSION: 10/15/2018 09:52 (CDT) PHONE: AGE: 87 SSN# [id number] GENDER: Male ENCOUNTER PHYSICIAN: Dr. Chelly Limon ADMISSION DIAGNOSIS: - Orthopaedic Disorders 08 - Unilateral Hip Fracture (10.18) Right Hip Intertrochanteric Fracture. EATING: Activity did not occur on this shift EATING - SCORE: 0-UNK GROOMING: Activity did not occur on this shift GROOMING - SCORE: 0-UNK BATHING: Activity did not occur on this shift BATHING - SCORE: 0-UNK DRESSING - UPPER BODY: Activity did not occur on this shift Patient is not dressing in public clothing ARTICLES SCORE Total number of steps: 0 DRESSING - UPPER BODY - SCORE: 0-UNK DRESSING - LOWER BODY: Activity did not occur on this shift Patient is not dressing in public clothing ARTICLES SCORE Total number of steps: 0 DRESSING - LOWER BODY - SCORE: 0-UNK TOILETING: Activity did not occur on this shift TOILETING - SCORE: 0-UNK BLADDER MANAGEMENT: Activity did not occur on this shift BLADDER MANAGEMENT - SCORE: 7-IND BOWEL MANAGEMENT: Activity did not occur on this shift BOWEL MANAGEMENT - SCORE: 7-IND TRANSFERS: BED, CHAIR, WHEELCHAIR: TRANSFERS: BED, CHAIR, WHEELCHAIR - STEP 1: Does the patient require assistance of a person or device, or need extra time with bed, chair, or whe elchair transfers? Yes. TRANSFERS: BED, CHAIR, WHEELCHAIR - STEP 2: Does the patient require the assistance of a helper? Yes. TRANSFERS: BED, CHAIR, WHEELCHAIR - STEP 3: How much assistance does the patient require from the helper? Steadying/guiding assistance TRANSFERS: BED, CHAIR, WHEELCHAIR - SCORE: 4-MIN TRANSFERS: TOILET: Activity did not occur on this shift TRANSFERS: TOILET - SCORE: 0-UNK TRANSFERS: SHOWER: Activity did not occur on this shift TRANSFERS: SHOWER - SCORE: 0-UNK TRANSFERS: TUB: Activity did not occur on this shift TRANSFERS: TUB - SCORE: 0-UNK LOCOMOTION: WALK: LOCOMOTION: WALK - STEP 1: Does the patient need help from a person or device, or need extra time to walk 150 feet? Yes. LOCOMOTION: WALK - STEP 2: How much assistance does the patient require to walk a minimum of 150 feet? Patient walks less than 1 50 feet - but more than 50 feet - with the assistance of only one helper LOCOMOTION: WALK - SCORE: 2-MAX LOCOMOTION: WHEELCHAIR: Activity did not occur on this shift LOCOMOTION: WHEELCHAIR - SCORE: 0-UNK LOCOMOTION: STAIRS: Activity did not occur on this shift LOCOMOTION: STAIRS - SCORE: 0-UNK COMPREHENSION: COMPREHENSION - SCORE: 0-UNK EXPRESSION EXPRESSION - SCORE: 0-UNK SOCIAL INTERACTION: SOCIAL INTERACTION - SCORE: 0-UNK PROBLEM SOLVING: PROBLEM SOLVING - SCORE: 0-UNK MEMORY: MEMORY - SCORE: 0-UNK SIGNATURE PANEL: The following modified sections: Transfers: Bed, Chair, Wheelchair - Score, Transfers: Toilet - Score , Locomotion: Walk - Score, Locomotion: Wheelchair - Score, Locomotion: Stairs - Score were [electron [email or web address]] signed by Rubio Arambula PT on FriOct 15 2018 16:47:03 T-0500 (Central Daylight Time)
[2018-10-15 17:08] LABS: Urine Appearance CLEAR; Urine Bilirubin NEGATIVE (NEG); Urine Blood NEGATIVE (NEG); Urine Color YELLOW; Urine Glucose NEGATIVE (NEG); Urine Protein NEGATIVE (NEG)
[2018-10-15 19:12] LABS: Urine Bacteria <20 /HPF (NONE SEEN); Urine Culture Reflex Order NOT NEEDED; Urine RBC <5 /HPF (NONE SEEN)
[2018-10-15] MEDS: LISINOPRIL 5 MG TAB PO SCH (20:39)
[2018-10-15] MEDS: SOTALOL HCL 80 MG TAB PO SCH (20:39)
[2018-10-15] MEDS: ATORVASTATIN 40 MG TAB PO SCH (20:39)
[2018-10-15] MEDS: TRAMADOL HCL 50 MG TAB PO PRN (20:45)
--- NOTE | 2018-10-16 01:04 | HP ---
Date of Admission: 10/15/2018 Chief Complaint: Rehab therapy after hip fracture surgery. History Of Present Illness: This is an 87-year-old male patient who had fall and right hip intertrochanteric fracture, for which he had surgery done at [facility] and he was released to go home about 2-1/2 weeks ago with home health and home physical therapy. Patient was admitted to inpatient rehab today for rehab therapy because of his debility, generalized weakness that was not improving with home health and home physical therapy. He does not report any fall after he came home from the hospital after surgery. He was admitted today to the hospital and he requested to be admitted under my service on the rehab floor as he is planning to change his outpatient services under my care and I did except him for this rehab stay. This is first time I am meeting him as of this evening. Allergies: NO KNOWN ALLERGIES. Medications: List reviewed. Review of Systems: Musculoskeletal: As mentioned above. Constitutional: Generalized weakness. All other systems reviewed and negative. Social History: Negative for smoking, alcohol use. Family History: Not pertinent. Past Medical History: Atrial fibrillation, coronary artery disease, gastroesophageal reflux disease, gout, head and neck cancer, prostate cancer, hypertension. Patient had chemoradiation therapy for prostate cancer and head and neck cancer around same time and this was years ago. His past medical history also significant for carotid artery stenosis. Patient's certified personal chef is Dr. Kenny Goldman in [place]. Past Surgical History: Coronary artery angioplasty with stent placement of LAD in 2003, left internal carotid artery stent placement on July 30, 2018, back surgery many years ago, right hip surgery for intertrochanteric fracture in September 2018. Physical Examination: Vital Signs: Height 6 feet, weight 200 pounds. Temperature 97.9, pulse 67, respiratory rate 16, blood pressure 132/63, oxygen saturation 96%. General: Awake, alert, oriented, not in distress. HEENT: Head atraumatic, normocephalic. Conjunctivae nonerythematous. Sclerae white. Mouth, no thrush or edema noted. Ears/Nose, no mass, lesion, discharge noted. Neck: Supple. No JVD, lymph nodes, thyromegaly. Patient has right-sided carotid bruit. Lungs: Bilateral good equal air entry. Clear to auscultation. No rhonchi. No rales. Heart: Heart sounds normal. Presence of systolic murmur. No gallop. Heart rhythm regular. Abdomen: Soft, bowel sounds normal. No guarding, rigidity, tenderness, mass, hepatosplenomegaly, distention, or bruit noted. Extremities: Right lateral hip shows a very well healed surgical scar. No evidence of any swelling, redness, or any wound gapping. Skin: No rash, ulcer, cellulitis. Lymphatics: No lymph node enlargement in neck, supraclavicular, infraclavicular region. Neuro: No focal neurological deficit. Chest: Unremarkable. External Genitalia: Deferred. Rectal: Deferred. Laboratory Data: Urinalysis done today was negative. Records available from [place] reviewed including blood test results, H and P, and multiple visit notes. Impression: 1. Debility. 2. Generalized weakness. 3. Right hip intertrochanteric fracture, status post surgery. 4. Carotid artery stenosis. 5. Heart murmur. 6. Coronary artery disease. 7. Hypertension. 8. Hyperlipidemia. 9. Prostate cancer. 10. Paroxysmal atrial fibrillation. 11. Gastroesophageal reflux disease. 12. Gout. Plan: Patient will be admitted to rehab floor for further evaluation and management of this problem. Rehab physician will manage patient's rehab therapy and I will continue to manage medical problems. Home medications will be continued per order. DVT prophylaxis will be given per order. Tomorrow, we will repeat some blood work as per order and we will also request carotid Doppler and echocardiogram results to be obtained from his certified personal chef's office for our record and review. Details and plan of treatment discussed with the patient and I will see him tomorrow for followup. He denies any constipation problem. His heart murmur could be related to aortic stenosis. We will look into it once we get a copy of the echocardiogram report. Details were discussed with the patient. RUI/JACQUELYN Voice ID: [id number] RAUL
--- NOTE | 2018-10-16 03:17 | FAST ---
SHIFT START DATE/TIME: 10/15/2018 19:00 (CDT) SHIFT END DATE/TIME: 10/16/2018 07:00 (CDT) NAME JILLIAN JARQUIN DATE OF : 1930 DATE OF ADMISSION: 10/15/2018 09:52 (CDT) PHONE: AGE: 87 N# [id number] GENDER: Male ENCOUNTER PHYSICIAN: Dr. Chelly Limon ADMISSION DIAGNOSIS: - Orthopaedic Disorders 08 - Unilateral Hip Fracture (10.18) Right Hip Intertrochanteric Fracture. EATING: Activity did not occur on this shift EATING - SCORE: 0-UNK GROOMING: Activity did not occur on this shift GROOMING - SCORE: 0-UNK BATHING: Activity did not occur on this shift BATHING - SCORE: 0-UNK DRESSING - UPPER BODY: Activity did not occur on this shift ARTICLES SCORE Total number of steps: 0 DRESSING - UPPER BODY - SCORE: 0-UNK DRESSING - LOWER BODY: Activity did not occur on this shift ARTICLES SCORE Total number of steps: 0 DRESSING - LOWER BODY - SCORE: 0-UNK TOILETING: TOILETING - SCORE: 0-UNK BLADDER MANAGEMENT: BLADDER MANAGEMENT - STEP 1: Does the patient control the bladder completely and intentionally without equipment or devices or med ications, and is always continent? No. BLADDER MANAGEMENT - STEP 2: Does the patient require the assistance of a helper? Yes. BLADDER MANAGEMENT - STEP 3: How much assistance does the patient require from the helper? Only set-up of equipment - such as plac ing it within reach of the patient or emptying a device - to maintain either satisfactory voiding pat tern or managing an external device, such as an absorbent pad, ileal device, or catheter BLADDER MANAGEMENT - SCORE: 5-SUP BLADDER MANAGEMENT - FREQUENCY OF ACCIDENTS: BLADDER MANAGEMENT(FA) - STEP 1: How many accidents has the patient had during the current shift? 0 BOWEL MANAGEMENT: Activity did not occur on this shift BOWEL MANAGEMENT - SCORE: 7-IND BOWEL MANAGEMENT - FREQUENCY OF ACCIDENTS: BOWEL MANAGEMENT(FA) - STEP 1: How many accidents has the patient had during the current shift? 0 TRANSFERS: BED, CHAIR, WHEELCHAIR: Activity did not occur on this shift TRANSFERS: BED, CHAIR, WHEELCHAIR - SCORE: 0-UNK TRANSFERS: TOILET: Activity did not occur on this shift TRANSFERS: TOILET - SCORE: 0-UNK TRANSFERS: SHOWER: Activity did not occur on this shift TRANSFERS: SHOWER - SCORE: 0-UNK TRANSFERS: TUB: Activity did not occur on this shift TRANSFERS: TUB - SCORE: 0-UNK LOCOMOTION: WALK: Activity did not occur on this shift LOCOMOTION: WALK - SCORE: 0-UNK LOCOMOTION: WHEELCHAIR: Activity did not occur on this shift LOCOMOTION: WHEELCHAIR - SCORE: 0-UNK COMPREHENSION: COMPREHENSION: TYPE: Both COMPREHENSION - STEP 1: Does the patient require help from a person or device, or need extra time to understand complex and a bstract ideas (such as current events, finances, discharge planning, medical issues, relationships, e tc)? No. COMPREHENSION - STEP 2: Does the patient need extra time, require an assistive device (such as glasses for visual comprehensi on or a hearing aid for auditory comprehension) or does s/he have mild difficulty understanding compl ex and abstract information? Yes. COMPREHENSION - SCORE: 6-SHREE EXPRESSION EXPRESSION: TYPE: Both EXPRESSION - STEP 1: Does the patient require help from a person or device, or need extra time expressing complex and abst ract ideas (such as current events, finances, discharge planning, medical issues, relationships, etc) ? No. EXPRESSION - STEP 2: Does the patient need extra time, require an assistive device (such as augmentive communication syste m or a communication board), OR does s/he have mild difficulty expressing complex and abstract ideas (including mild dysarthria or mild word-find problems)? Yes. EXPRESSION - SCORE: 6-SHREE SOCIAL INTERACTION: SOCIAL INTERACTION - STEP 1: Does the patient require a helper to interact with others in social and therapeutic situations? No. SOCIAL INTERACTION - STEP 2: Does the patient need extra time in social situations, OR does s/he interact with staff, other patien ts, and family members ONLY in structured environments, OR does s/he require medication for social in teraction? Yes, patient needs extra time SOCIAL INTERACTION - SCORE: 6-SHREE PROBLEM SOLVING: PROBLEM SOLVING - STEP 1: Does the patient need help from a person or device, or need extra time to solve complex problems such as managing a checking account or confronting interpersonal problems? No. PROBLEM SOLVING - STEP 2: Does the patient require extra time to make decisions or solve problems, OR does s/he have slight dif ficulty reading, initiating, or self-correcting in unfamiliar situations? Yes, patient needs extra ti me. PROBLEM SOLVING - SCORE: 6-SHREE MEMORY: MEMORY - STEP 1: Does the patient need help from a person or device, or need extra time to remember frequently encount ered people, daily routines, and executing requests? No. MEMORY - STEP 2: Does the patient have slight difficulty recognizing frequently encountered people, daily routines, or executing requests without the need for repetition or using self-initiated or environmental cues to remember? Yes. MEMORY - SCORE: 6-SHREE SIGNATURE PANEL: The following modified sections: Eating - Score, Grooming - Score, Bathing - Score, Dressing - Upper Body - Score, Dressing - Lower Body - Score, Bladder Management - Score, Bowel Management - Score, Tr ansfers: Bed, Chair, Wheelchair - Score, Transfers: Toilet - Score, Transfers: Shower - Score, Transf ers: Tub - Score, Locomotion: Walk - Score, Locomotion: Wheelchair - Score, Comprehension - Score, Ex pression - Score, Social Interaction - Score, Problem Solving - Score, Memory - Score were [albert martin] signed by Eloisa Naranjo RN on FriOct 16 2018 03:16:00 GMT-0500 (Central Daylight Time)
[2018-10-16] MEDS: PANTOPRAZOLE 40MG TABLET PO SCH (06:51)
[2018-10-16 06:55] LABS: Absolute Lymphocytes (CBC) 1.1 K/uL (0.7-4.9); Basophils % 0.9 % (0-1.3); Hematocrit 32.2 % (39.6-49.0); MPV 7.7 fL (7.6-11.3); RBC Red Blood Cell Count 3.56 M/uL (4.33-5.43)
[2018-10-16 07:19] LABS: ALT/SGPT 17 U/L (12-78); AST/SGOT 21 U/L (15-37); Alkaline Phosphatase 135 U/L (45-117); BUN Blood Urea Nitrogen 14 mg/dL (7-18); Bicarbonate 30 mmol/L (21-32); Bilirubin Total 0.2 mg/dL (0.2-1.0); Glucose Level 86 mg/dL (74-106); Magnesium 2.1 mg/dL (1.8-2.4); Potassium 4.2 mmol/L (3.5-5.1); Prealbumin 9.2 mg/dL (20-40); Protein, Total 6.2 g/dL (6.4-8.2); Sodium Level 138 mmol/L (136-145)
--- NOTE | 2018-10-16 07:38 | PN ---
Date of Progress Note: 10/16/2018 RUI/JAZL Voice ID: [id number] Report ID: [id number] RAUL
--- NOTE | 2018-10-16 07:59 | PN ---
Date of Progress Note: 10/16/2018 Subjective: Patient was seen this morning for followup. No new complaints or problems reported by patient. He was lying in bed. Denied any specific complaints overnight. Last bowel movement was yesterday. Objective: Vital Signs: Reviewed. HEENT: Unremarkable. Lungs: Clear to auscultation. Heart: Sounds normal. Abdomen: Soft. Bowel sounds normal. No guarding, rigidity, tenderness, or distention. Extremities: No leg edema. Impression: 1. Debility. 2. Generalized weakness. 3. Right hip intertrochanteric fracture. 4. Paroxysmal atrial fibrillation. 5. Carotid artery stenosis. 6. Coronary artery disease. Plan: Patient is medically stable. We will continue current medical management. 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 Kenny Goldman. I will see him tomorrow for followup. DICTATION ENDS HERE RUI/JACQUELYN Voice ID: [id number] Report ID: [id number] MTDD
[2018-10-16] MEDS ORDERED: ASPIRIN 81 MG CHEWABLE TABLET PO SCH (08:00)
[2018-10-16] MEDS: TRAMADOL HCL 50 MG TAB PO PRN (08:41)
[2018-10-16] MEDS: SOTALOL HCL 80 MG TAB PO SCH ×2 (08:43→20:27)
[2018-10-16] MEDS: FERROUS SULFATE 325 MG TAB PO SCH (08:43)
[2018-10-16] MEDS: DRISDOL (VITAMIN D=ERGOCALCIFEROL) 50000 UNIT CAP PO SCH (08:44)
[2018-10-16] MEDS: GABAPENTIN 400 MG CAP PO SCH ×3 (08:45→20:28)
[2018-10-16] MEDS: ALLOPURINOL 300 MG TAB PO SCH (08:45)
[2018-10-16] MEDS: LISINOPRIL 5 MG TAB PO SCH ×2 (08:46→20:28)
[2018-10-16] MEDS: RIVAROXABAN 10 MG TABLET PO SCH (08:46)
[2018-10-16] MEDS: LIDOCAINE 5% PATCH TOP SCH (11:07)
--- NOTE | 2018-10-16 16:01 | FAST ---
ENCOUNTER DATE AND TIME: 10/16/2018 08:00 (CDT) NAME JILLIAN JARQUIN DATE OF : 1930 DATE OF ADMISSION: 10/15/2018 09:52 (CDT) PHONE: AGE: 87 SSN# [id number] GENDER: Male ENCOUNTER PHYSICIAN: Dr. Chelly Limon ADMISSION DIAGNOSIS: - Orthopaedic Disorders 08 - Unilateral Hip Fracture (10.18) Right Hip Intertrochanteric Fracture. EATING: Activity did not occur on this shift EATING - SCORE: 0-UNK GROOMING: Activity did not occur on this shift GROOMING - SCORE: 0-UNK BATHING: Activity did not occur on this shift BATHING - SCORE: 0-UNK DRESSING - UPPER BODY: Activity did not occur on this shift Patient is not dressing in public clothing ARTICLES SCORE Total number of steps: 0 DRESSING - UPPER BODY - SCORE: 0-UNK DRESSING - LOWER BODY: Activity did not occur on this shift Patient is not dressing in public clothing ARTICLES SCORE Total number of steps: 0 DRESSING - LOWER BODY - SCORE: 0-UNK TOILETING: Activity did not occur on this shift TOILETING - SCORE: 0-UNK BLADDER MANAGEMENT: Activity did not occur on this shift BLADDER MANAGEMENT - SCORE: 7-IND BOWEL MANAGEMENT: Activity did not occur on this shift BOWEL MANAGEMENT - SCORE: 7-IND TRANSFERS: BED, CHAIR, WHEELCHAIR: TRANSFERS: BED, CHAIR, WHEELCHAIR - STEP 1: Does the patient require assistance of a person or device, or need extra time with bed, chair, or whe elchair transfers? Yes. TRANSFERS: BED, CHAIR, WHEELCHAIR - STEP 2: Does the patient require the assistance of a helper? Yes. TRANSFERS: BED, CHAIR, WHEELCHAIR - STEP 3: How much assistance does the patient require from the helper? Steadying/guiding assistance TRANSFERS: BED, CHAIR, WHEELCHAIR - SCORE: 4-MIN TRANSFERS: TOILET: Activity did not occur on this shift TRANSFERS: TOILET - SCORE: 0-UNK TRANSFERS: SHOWER: Activity did not occur on this shift TRANSFERS: SHOWER - SCORE: 0-UNK TRANSFERS: TUB: Activity did not occur on this shift TRANSFERS: TUB - SCORE: 0-UNK LOCOMOTION: WALK: LOCOMOTION: WALK - STEP 1: Does the patient need help from a person or device, or need extra time to walk 150 feet? Yes. LOCOMOTION: WALK - STEP 2: How much assistance does the patient require to walk a minimum of 150 feet? Only incidental help such as contact guarding or steadying LOCOMOTION: WALK - SCORE: 4-MIN LOCOMOTION: WHEELCHAIR: LOCOMOTION: WHEELCHAIR - STEP 1: Does the patient need help to go 150 feet in a wheelchair? Yes. LOCOMOTION: WHEELCHAIR - STEP 2: How much assistance does the patient need from the helper? Only supervision, cuing, or coaxing LOCOMOTION: WHEELCHAIR - SCORE: 5-SUP LOCOMOTION: STAIRS: Activity did not occur on this shift LOCOMOTION: STAIRS - SCORE: 0-UNK COMPREHENSION: COMPREHENSION - SCORE: 0-UNK EXPRESSION EXPRESSION - SCORE: 0-UNK SOCIAL INTERACTION: SOCIAL INTERACTION - SCORE: 0-UNK PROBLEM SOLVING: PROBLEM SOLVING - SCORE: 0-UNK MEMORY: MEMORY - SCORE: 0-UNK SIGNATURE PANEL: The following modified sections: Transfers: Bed, Chair, Wheelchair - Score, Transfers: Toilet - Score , Locomotion: Walk - Score, Locomotion: Wheelchair - Score, Locomotion: Stairs - Score were [ivan landa] signed by Anusha Viveros PTA on FriOct 16 2018 16:00:44 GMT-0500 (Central Daylight Time)
[2018-10-16] MEDS: ATORVASTATIN 40 MG TAB PO SCH (20:28)
--- NOTE | 2018-10-17 02:10 | FAST ---
SHIFT START DATE/TIME: 10/16/2018 19:00 (CDT) SHIFT END DATE/TIME: 10/17/2018 07:00 (CDT) NAME JILLIAN JARQUIN DATE OF : 1930 DATE OF ADMISSION: 10/15/2018 09:52 (CDT) PHONE: AGE: 87 N# [id number] GENDER: Male ENCOUNTER PHYSICIAN: Dr. Chelly Limon ADMISSION DIAGNOSIS: - Orthopaedic Disorders 08 - Unilateral Hip Fracture (10.18) Right Hip Intertrochanteric Fracture. EATING: Activity did not occur on this shift EATING - SCORE: 0-UNK GROOMING: Activity did not occur on this shift GROOMING - SCORE: 0-UNK BATHING: Activity did not occur on this shift BATHING - SCORE: 0-UNK DRESSING - UPPER BODY: Patient is not dressing in public clothing ARTICLES SCORE Total number of steps: 0 DRESSING - UPPER BODY - SCORE: 0-UNK DRESSING - LOWER BODY: Patient is not dressing in public clothing ARTICLES SCORE Total number of steps: 0 DRESSING - LOWER BODY - SCORE: 0-UNK TOILETING: Activity did not occur on this shift TOILETING - SCORE: 0-UNK BLADDER MANAGEMENT: BLADDER MANAGEMENT - STEP 1: Does the patient control the bladder completely and intentionally without equipment or devices or med ications, and is always continent? No. BLADDER MANAGEMENT - STEP 2: Does the patient require the assistance of a helper? Yes. BLADDER MANAGEMENT - STEP 3: How much assistance does the patient require from the helper? Only set-up of equipment - such as plac ing it within reach of the patient or emptying a device - to maintain either satisfactory voiding pat tern or managing an external device, such as an absorbent pad, ileal device, or catheter BLADDER MANAGEMENT - SCORE: 5-SUP BOWEL MANAGEMENT: Activity did not occur on this shift BOWEL MANAGEMENT - SCORE: 7-IND TRANSFERS: BED, CHAIR, WHEELCHAIR: Activity did not occur on this shift TRANSFERS: BED, CHAIR, WHEELCHAIR - SCORE: 0-UNK TRANSFERS: TOILET: Activity did not occur on this shift TRANSFERS: TOILET - SCORE: 0-UNK TRANSFERS: SHOWER: Activity did not occur on this shift TRANSFERS: SHOWER - SCORE: 0-UNK TRANSFERS: TUB: Activity did not occur on this shift TRANSFERS: TUB - SCORE: 0-UNK LOCOMOTION: WALK: Activity did not occur on this shift LOCOMOTION: WALK - SCORE: 0-UNK LOCOMOTION: WHEELCHAIR: Activity did not occur on this shift LOCOMOTION: WHEELCHAIR - SCORE: 0-UNK COMPREHENSION: COMPREHENSION: TYPE: Both COMPREHENSION - STEP 1: Does the patient require help from a person or device, or need extra time to understand complex and a bstract ideas (such as current events, finances, discharge planning, medical issues, relationships, e tc)? No. COMPREHENSION - STEP 2: Does the patient need extra time, require an assistive device (such as glasses for visual comprehensi on or a hearing aid for auditory comprehension) or does s/he have mild difficulty understanding compl ex and abstract information? Yes. COMPREHENSION - SCORE: 6-SHREE EXPRESSION EXPRESSION: TYPE: Both EXPRESSION - STEP 1: Does the patient require help from a person or device, or need extra time expressing complex and abst ract ideas (such as current events, finances, discharge planning, medical issues, relationships, etc) ? No. EXPRESSION - STEP 2: Does the patient need extra time, require an assistive device (such as augmentive communication syste m or a communication board), OR does s/he have mild difficulty expressing complex and abstract ideas (including mild dysarthria or mild word-find problems)? Yes. EXPRESSION - SCORE: 6-SHREE SOCIAL INTERACTION: SOCIAL INTERACTION - STEP 1: Does the patient require a helper to interact with others in social and therapeutic situations? No. SOCIAL INTERACTION - STEP 2: Does the patient need extra time in social situations, OR does s/he interact with staff, other patien ts, and family members ONLY in structured environments, OR does s/he require medication for social in teraction? Yes, patient needs extra time SOCIAL INTERACTION - SCORE: 6-SHREE PROBLEM SOLVING: PROBLEM SOLVING - STEP 1: Does the patient need help from a person or device, or need extra time to solve complex problems such as managing a checking account or confronting interpersonal problems? No. PROBLEM SOLVING - STEP 2: Does the patient require extra time to make decisions or solve problems, OR does s/he have slight dif ficulty reading, initiating, or self-correcting in unfamiliar situations? Yes, patient needs extra ti me. PROBLEM SOLVING - SCORE: 6-SHREE MEMORY: MEMORY - STEP 1: Does the patient need help from a person or device, or need extra time to remember frequently encount ered people, daily routines, and executing requests? No. MEMORY - STEP 2: Does the patient have slight difficulty recognizing frequently encountered people, daily routines, or executing requests without the need for repetition or using self-initiated or environmental cues to remember? Yes. MEMORY - SCORE: 6-SHREE
[2018-10-17 05:41] VITALS: BMI 26.6
[2018-10-17] MEDS: LIDOCAINE 5% PATCH TOP SCH (07:16)
[2018-10-17] MEDS: PANTOPRAZOLE 40MG TABLET PO SCH (07:16)
[2018-10-17] MEDS: SOTALOL HCL 80 MG TAB PO SCH ×2 (08:45→20:41)
[2018-10-17] MEDS: RIVAROXABAN 10 MG TABLET PO SCH (08:46)
[2018-10-17] MEDS: LISINOPRIL 5 MG TAB PO SCH ×2 (08:46→20:41)
[2018-10-17] MEDS: ALLOPURINOL 300 MG TAB PO SCH (08:47)
[2018-10-17] MEDS: GABAPENTIN 400 MG CAP PO SCH ×3 (08:47→20:41)
[2018-10-17] MEDS ORDERED: MAGNESIUM HYDROXIDE 8% 30 ML PO ONE (09:29)
--- NOTE | 2018-10-17 09:45 | FAST ---
ENCOUNTER DATE AND TIME: 10/15/2018 08:00 (CDT) NAME JILLIAN JARQUIN DATE OF : 1930 DATE OF ADMISSION: 10/15/2018 09:52 (CDT) PHONE: AGE: 87 SSN# [id number] GENDER: Male ENCOUNTER PHYSICIAN: Dr. Chelly Limon ADMISSION DIAGNOSIS: - Orthopaedic Disorders 08 - Unilateral Hip Fracture (.) Right Hip Intertrochanteric Fracture. EATING: EATING - STEP 1: Does the patient require the assistance of a person or device, or need extra time when eating? No. EATING - SCORE: 7-IND GROOMING: Comb/brush hair Oral care Wash, rinse, and dry face Wash, rinse, and dry hands GROOMING - STEP 1: Does the patient require the assistance of a person or device, or need extra time when grooming? No. GROOMING - SCORE: 7-IND BATHING: Abdomen Buttocks Chest Left arm Left lower leg and foot Left upper leg Perineal area Right arm Right lower leg and foot Right upper leg BATHING - STEP 1: Does the patient require the assistance of a person or device, or need extra time when bathing? Yes. BATHING - STEP 2: Does the patient require the assistance of a helper? Yes. BATHING - STEP 3: How much assistance does the patient require from the helper? Only incidental help such as placement of a wash cloth in his/her hand a few times as s/he bathes OR help to bathe just one or two areas of the body BATHING - SCORE: 4-MIN DRESSING - UPPER BODY: Button down shirt or blouse - NOT tucked in (four steps) T-shirt/pullover shirt (four steps) ARTICLES SCORE Total number of steps: 8 DRESSING - UPPER BODY - STEP 1: Does the patient require help from a person or device, or need extra time when dressing above the [address]? Yes. DRESSING - UPPER BODY - STEP 2: Does the patient require the assistance of a helper? Yes. DRESSING - UPPER BODY - STEP 3: Does the helper touch the patient while dressing? No. DRESSING - UPPER BODY - SCORE: 5-SUP DRESSING - LOWER BODY: Slip-on shoe - Left foot (one step) Slip-on shoe - Right foot (one step) Sock - Left foot (one step) Sock - Right foot (one step) Underwear (three steps) ARTICLES SCORE Total number of steps: 7 DRESSING - LOWER BODY - STEP 1: Does the patient require help from a person or device, or need extra time when dressing below the [address]? Yes. DRESSING - LOWER BODY - STEP 2: Does the patient require the assistance of a helper? Yes. DRESSING - LOWER BODY - STEP 3: Does the helper touch the patient while dressing? Yes. DRESSING - LOWER BODY - STEP 4: How many of the total steps does the patient complete on his/her own? 6 DRESSING - LOWER BODY - SCORE: 4-MIN TOILETING: Activity did not occur on this shift TOILETING - SCORE: 0-UNK BLADDER MANAGEMENT: Activity did not occur on this shift BLADDER MANAGEMENT - SCORE: 7-IND BOWEL MANAGEMENT: Activity did not occur on this shift BOWEL MANAGEMENT - SCORE: 7-IND TRANSFERS: BED, CHAIR, WHEELCHAIR: Activity did not occur on this shift TRANSFERS: BED, CHAIR, WHEELCHAIR - SCORE: 0-UNK TRANSFERS: TOILET: Activity did not occur on this shift TRANSFERS: TOILET - SCORE: 0-UNK TRANSFERS: SHOWER: TRANSFERS: SHOWER - STEP 1: Does the patient require the assistance of a person or device, or need extra time with shower transfe rs? Yes. TRANSFERS: SHOWER - STEP 2: Does the patient require the assistance of a helper? Yes. TRANSFERS: SHOWER - STEP 3: How much assistance does the patient require from the helper? Only supervision, cuing, coaxing, or he lp to set out transfer equipment or to lock brakes and/or lift foot rests TRANSFERS: SHOWER - SCORE: 5-SUP TRANSFERS: TUB: Activity did not occur on this shift TRANSFERS: TUB - SCORE: 0-UNK LOCOMOTION: WALK: Activity did not occur on this shift LOCOMOTION: WALK - SCORE: 0-UNK LOCOMOTION: WHEELCHAIR: Activity did not occur on this shift LOCOMOTION: WHEELCHAIR - SCORE: 0-UNK LOCOMOTION: STAIRS: Activity did not occur on this shift LOCOMOTION: STAIRS - SCORE: 0-UNK COMPREHENSION: COMPREHENSION: TYPE: Both COMPREHENSION - STEP 1: Does the patient require help from a person or device, or need extra time to understand complex and a bstract ideas (such as current events, finances, discharge planning, medical issues, relationships, e tc)? No. COMPREHENSION - STEP 2: Does the patient need extra time, require an assistive device (such as glasses for visual comprehensi on or a hearing aid for auditory comprehension) or does s/he have mild difficulty understanding compl ex and abstract information? No. COMPREHENSION - SCORE: 7-IND EXPRESSION EXPRESSION: TYPE: Both EXPRESSION - STEP 1: Does the patient require help from a person or device, or need extra time expressing complex and abst ract ideas (such as current events, finances, discharge planning, medical issues, relationships, etc) ? No. EXPRESSION - STEP 2: Does the patient need extra time, require an assistive device (such as augmentive communication syste m or a communication board), OR does s/he have mild difficulty expressing complex and abstract ideas (including mild dysarthria or mild word-find problems)? No. EXPRESSION - SCORE: 7-IND SOCIAL INTERACTION: SOCIAL INTERACTION - STEP 1: Does the patient require a helper to interact with others in social and therapeutic situations? No. SOCIAL INTERACTION - STEP 2: Does the patient need extra time in social situations, OR does s/he interact with staff, other patien ts, and family members ONLY in structured environments, OR does s/he require medication for social in teraction? No. SOCIAL INTERACTION - SCORE: 7-IND PROBLEM SOLVING: PROBLEM SOLVING - STEP 1: Does the patient need help from a person or device, or need extra time to solve complex problems such as managing a checking account or confronting interpersonal problems? No. PROBLEM SOLVING - STEP 2: Does the patient require extra time to make decisions or solve problems, OR does s/he have slight dif ficulty reading, initiating, or self-correcting in unfamiliar situations? Yes, patient needs extra ti me. PROBLEM SOLVING - SCORE: 6-SHREE MEMORY: MEMORY - STEP 1: Does the patient need help from a person or device, or need extra time to remember frequently encount ered people, daily routines, and executing requests? No. MEMORY - STEP 2: Does the patient have slight difficulty recognizing frequently encountered people, daily routines, or executing requests without the need for repetition or using self-initiated or environmental cues to remember? Yes. MEMORY - SCORE: 6-SHREE SIGNATURE PANEL: The following modified sections: Eating - Score, Grooming - Score, Bathing - Score, Dressing - Upper Body - Score, Dressing - Lower Body - Score, Toileting - Score, Transfers: Bed, Chair, Wheelchair - S core, Transfers: Toilet - Score, Transfers: Tub - Score, Transfers: Shower - Score, Comprehension - S core, Expression - Score, Social Interaction - Score, Problem Solving - Score, Memory - Score were [e lectronically] signed by Pennie Bundy OT on Sat Oct 17 2018 09:43:59 T-0500 (Central Daylight T shira)
--- NOTE | 2018-10-17 10:18 | FAST ---
SHIFT START DATE/TIME: 10/17/2018 07:00 (CDT) SHIFT END DATE/TIME: 10/17/2018 19:00 (CDT) NAME JILLIAN JARQUIN DATE OF : 1930 DATE OF ADMISSION: 10/15/2018 09:52 (CDT) PHONE: AGE: 87 N# [id number] GENDER: Male ENCOUNTER PHYSICIAN: Dr. Chelly Limon ADMISSION DIAGNOSIS: - Orthopaedic Disorders 08 - Unilateral Hip Fracture (10.18) Right Hip Intertrochanteric Fracture. EATING: EATING - STEP 1: Does the patient require the assistance of a person or device, or need extra time when eating? Yes. EATING - STEP 2: Does the patient require the assistance of a helper? Yes. EATING - STEP 3: Does the patient perform half or more of the eating tasks? Yes. EATING - STEP 4: Does the patient need only supervision, cuing, coaxing OR help to apply an orthosis OR help to cut fo od, open containers, pour liquids, or butter bread? Yes. EATING - SCORE: 5-SUP GROOMING: Activity did not occur on this shift GROOMING - SCORE: 0-UNK BATHING: Activity did not occur on this shift BATHING - SCORE: 0-UNK DRESSING - UPPER BODY: Activity did not occur on this shift ARTICLES SCORE Total number of steps: 0 DRESSING - UPPER BODY - SCORE: 0-UNK DRESSING - LOWER BODY: Activity did not occur on this shift ARTICLES SCORE Total number of steps: 0 DRESSING - LOWER BODY - SCORE: 0-UNK TOILETING: TOILETING - STEP 1: Does the patient require the assistance of a person or device, or need extra time with toileting? Yes . TOILETING - STEP 2: Does the patient require the assistance of a helper? Yes. TOILETING - STEP 3: How much assistance does the patient require from the helper? Hands-on assistance from the helper TOILETING - STEP 4: Of the 3 tasks: 1) Adjusting clothing prior to use, 2) Cleansing of perineal area, 3) Adjusting clot james after use; How many tasks does the patient perform WITHOUT assistance of the helper? Two tasks TOILETING - SCORE: 3-MOD BLADDER MANAGEMENT: BLADDER MANAGEMENT - STEP 1: Does the patient control the bladder completely and intentionally without equipment or devices or med ications, and is always continent? No. BLADDER MANAGEMENT - STEP 2: Does the patient require the assistance of a helper? No, patient requires and independently uses an a ssistive device, such as a urinal, bedpan, bedside commode, catheter, absorbent pad, or collecting de vice BLADDER MANAGEMENT - SCORE: 6-SHREE BOWEL MANAGEMENT: Activity did not occur on this shift BOWEL MANAGEMENT - SCORE: 7-IND TRANSFERS: BED, CHAIR, WHEELCHAIR: TRANSFERS: BED, CHAIR, WHEELCHAIR - STEP 1: Does the patient require assistance of a person or device, or need extra time with bed, chair, or whe elchair transfers? Yes. TRANSFERS: BED, CHAIR, WHEELCHAIR - STEP 2: Does the patient require the assistance of a helper? Yes. TRANSFERS: BED, CHAIR, WHEELCHAIR - STEP 3: How much assistance does the patient require from the helper? Lifting of the patient TRANSFERS: BED, CHAIR, WHEELCHAIR - STEP 4: Does the helper lift the patient ONLY up? ONLY down? Up AND Down? ONLY up. TRANSFERS: BED, CHAIR, WHEELCHAIR - SCORE: 3-MOD TRANSFERS: TOILET: TRANSFERS: TOILET - STEP 1: Does the patient require the assistance of a person or device, or need extra time with toilet transfe rs? Yes. TRANSFERS: TOILET - STEP 2: Does the patient require the assistance of a helper? Yes. TRANSFERS: TOILET - STEP 3: How much assistance does the patient require from the helper? Patient performs half or more of the tr ansferring tasks TRANSFERS: TOILET - STEP 4: Does the patient need only incidental help such as contact guard or steadying during toilet transfer? No. Patient needs more than incidental help TRANSFERS: TOILET - SCORE: 3-MOD TRANSFERS: SHOWER: Activity did not occur on this shift TRANSFERS: SHOWER - SCORE: 0-UNK TRANSFERS: TUB: Activity did not occur on this shift TRANSFERS: TUB - SCORE: 0-UNK LOCOMOTION: WALK: Activity did not occur on this shift LOCOMOTION: WALK - SCORE: 0-UNK LOCOMOTION: WHEELCHAIR: Activity did not occur on this shift LOCOMOTION: WHEELCHAIR - SCORE: 0-UNK COMPREHENSION: COMPREHENSION: TYPE: Both COMPREHENSION - STEP 1: Does the patient require help from a person or device, or need extra time to understand complex and a bstract ideas (such as current events, finances, discharge planning, medical issues, relationships, e tc)? No. COMPREHENSION - STEP 2: Does the patient need extra time, require an assistive device (such as glasses for visual comprehensi on or a hearing aid for auditory comprehension) or does s/he have mild difficulty understanding compl ex and abstract information? Yes. COMPREHENSION - SCORE: 6-SHREE EXPRESSION EXPRESSION: TYPE: Both EXPRESSION - STEP 1: Does the patient require help from a person or device, or need extra time expressing complex and abst ract ideas (such as current events, finances, discharge planning, medical issues, relationships, etc) ? No. EXPRESSION - STEP 2: Does the patient need extra time, require an assistive device (such as augmentive communication syste m or a communication board), OR does s/he have mild difficulty expressing complex and abstract ideas (including mild dysarthria or mild word-find problems)? Yes. EXPRESSION - SCORE: 6-SHREE SOCIAL INTERACTION: SOCIAL INTERACTION - STEP 1: Does the patient require a helper to interact with others in social and therapeutic situations? No. SOCIAL INTERACTION - STEP 2: Does the patient need extra time in social situations, OR does s/he interact with staff, other patien ts, and family members ONLY in structured environments, OR does s/he require medication for social in teraction? Yes, patient needs extra time SOCIAL INTERACTION - SCORE: 6-SHREE PROBLEM SOLVING: PROBLEM SOLVING - STEP 1: Does the patient need help from a person or device, or need extra time to solve complex problems such as managing a checking account or confronting interpersonal problems? No. PROBLEM SOLVING - STEP 2: Does the patient require extra time to make decisions or solve problems, OR does s/he have slight dif ficulty reading, initiating, or self-correcting in unfamiliar situations? Yes, patient needs extra ti me. PROBLEM SOLVING - SCORE: 6-SHREE MEMORY: MEMORY - STEP 1: Does the patient need help from a person or device, or need extra time to remember frequently encount ered people, daily routines, and executing requests? No. MEMORY - STEP 2: Does the patient have slight difficulty recognizing frequently encountered people, daily routines, or executing requests without the need for repetition or using self-initiated or environmental cues to remember? Yes. MEMORY - SCORE: 6-SHREE SIGNATURE PANEL: The following modified sections: Eating - Score, Grooming - Score, Bathing - Score, Dressing - Upper Body - Score, Dressing - Lower Body - Score, Toileting - Score, Bladder Management - Score, Bowel Man agement - Score, Transfers: Bed, Chair, Wheelchair - Score, Transfers: Toilet - Score, Transfers: Christina wer - Score, Transfers: Tub - Score, Locomotion: Walk - Score, Locomotion: Wheelchair - Score, Compre hension - Score, Expression - Score, Social Interaction - Score, Problem Solving - Score, Memory - Sc ore were [electronically] signed by Keyshawn Joseph on Sat Oct 17 2018 10:16:54 GMT-0500 (Central Daylight Time)
--- NOTE | 2018-10-17 16:21 | PN ---
Date of Progress Note: 10/17/2018 Subjective: The patient was seen this morning for followup. No new complaints or problems reported. Objective: Vital Signs: Reviewed. HEENT: Unremarkable. Lungs: Clear to auscultation. Heart: Sounds normal. Abdomen: Soft. Bowel sounds normal. No guarding, rigidity, tenderness, or distention. Extremities: No leg edema. Impression: 1.Debility. 2.Generalized weakness. 3.Constipation. 4.Coronary artery disease. 5.Hypertension. 6.Paroxysmal atrial fibrillation. Plan: Patient has constipation problem at home. He uses milk of magnesia on a p.r.n. basis, which w orks for him and I have ordered that for him. Continue other current medical management. Continue p hysical therapy per guidance of rehab physician and I will see him tomorrow for followup. RUI/AJCQUELYN Voice ID: [id number] Report ID: [id number]
[2018-10-17] MEDS: ATORVASTATIN 40 MG TAB PO SCH (20:41)
[2018-10-17] MEDS: TRAMADOL HCL 50 MG TAB PO PRN (23:55)
[2018-10-18] MEDS: TRAMADOL HCL 50 MG TAB PO PRN ×2 (05:26→14:13)
[2018-10-18] MEDS: PANTOPRAZOLE 40MG TABLET PO SCH (05:26)
[2018-10-18] MEDS: LIDOCAINE 5% PATCH TOP SCH ×2 (07:13→19:31)
[2018-10-18] MEDS: SOTALOL HCL 80 MG TAB PO SCH ×2 (07:14→19:32)
[2018-10-18] MEDS: ACETAMINOPHEN 500 MG TAB PO PRN (07:14)
[2018-10-18] MEDS: FERROUS SULFATE 325 MG TAB PO SCH (07:14)
[2018-10-18] MEDS: ALLOPURINOL 300 MG TAB PO SCH (07:15)
[2018-10-18] MEDS: LISINOPRIL 5 MG TAB PO SCH ×2 (07:15→19:32)
[2018-10-18] MEDS: GABAPENTIN 400 MG CAP PO SCH ×3 (07:15→19:31)
[2018-10-18] MEDS: RIVAROXABAN 10 MG TABLET PO SCH (07:16)
[2018-10-18] MEDS: MAGNESIUM HYDROXIDE 8% 30 ML PO PRN (10:49)
--- NOTE | 2018-10-18 11:35 | FAST ---
SHIFT START DATE/TIME: 10/18/2018 07:00 (CDT) SHIFT END DATE/TIME: 10/18/2018 19:00 (CDT) NAME JILLIAN JARQUIN DATE OF : 1930 DATE OF ADMISSION: 10/15/2018 09:52 (CDT) PHONE: AGE: 87 N# [id number] GENDER: Male ENCOUNTER PHYSICIAN: Dr. Chelly Limon ADMISSION DIAGNOSIS: - Orthopaedic Disorders 08 - Unilateral Hip Fracture (10.18) Right Hip Intertrochanteric Fracture. EATING: EATING - STEP 1: Does the patient require the assistance of a person or device, or need extra time when eating? Yes. EATING - STEP 2: Does the patient require the assistance of a helper? Yes. EATING - STEP 3: Does the patient perform half or more of the eating tasks? Yes. EATING - STEP 4: Does the patient need only supervision, cuing, coaxing OR help to apply an orthosis OR help to cut fo od, open containers, pour liquids, or butter bread? Yes. EATING - SCORE: 5-SUP GROOMING: Activity did not occur on this shift GROOMING - SCORE: 0-UNK BATHING: Activity did not occur on this shift BATHING - SCORE: 0-UNK DRESSING - UPPER BODY: Activity did not occur on this shift ARTICLES SCORE Total number of steps: 0 DRESSING - UPPER BODY - SCORE: 0-UNK DRESSING - LOWER BODY: Activity did not occur on this shift ARTICLES SCORE Total number of steps: 0 DRESSING - LOWER BODY - SCORE: 0-UNK TOILETING: TOILETING - STEP 1: Does the patient require the assistance of a person or device, or need extra time with toileting? Yes . TOILETING - STEP 2: Does the patient require the assistance of a helper? Yes. TOILETING - STEP 3: How much assistance does the patient require from the helper? Hands-on assistance from the helper TOILETING - STEP 4: Of the 3 tasks: 1) Adjusting clothing prior to use, 2) Cleansing of perineal area, 3) Adjusting clot james after use; How many tasks does the patient perform WITHOUT assistance of the helper? Two tasks TOILETING - SCORE: 3-MOD BLADDER MANAGEMENT: BLADDER MANAGEMENT - STEP 1: Does the patient control the bladder completely and intentionally without equipment or devices or med ications, and is always continent? No. BLADDER MANAGEMENT - STEP 2: Does the patient require the assistance of a helper? No, patient requires and independently uses an a ssistive device, such as a urinal, bedpan, bedside commode, catheter, absorbent pad, or collecting de vice BLADDER MANAGEMENT - SCORE: 6-SHREE BOWEL MANAGEMENT: Activity did not occur on this shift BOWEL MANAGEMENT - SCORE: 7-IND TRANSFERS: BED, CHAIR, WHEELCHAIR: TRANSFERS: BED, CHAIR, WHEELCHAIR - STEP 1: Does the patient require assistance of a person or device, or need extra time with bed, chair, or whe elchair transfers? Yes. TRANSFERS: BED, CHAIR, WHEELCHAIR - STEP 2: Does the patient require the assistance of a helper? Yes. TRANSFERS: BED, CHAIR, WHEELCHAIR - STEP 3: How much assistance does the patient require from the helper? Lifting of the patient TRANSFERS: BED, CHAIR, WHEELCHAIR - STEP 4: Does the helper lift the patient ONLY up? ONLY down? Up AND Down? ONLY up. TRANSFERS: BED, CHAIR, WHEELCHAIR - SCORE: 3-MOD TRANSFERS: TOILET: TRANSFERS: TOILET - STEP 1: Does the patient require the assistance of a person or device, or need extra time with toilet transfe rs? Yes. TRANSFERS: TOILET - STEP 2: Does the patient require the assistance of a helper? Yes. TRANSFERS: TOILET - STEP 3: How much assistance does the patient require from the helper? Patient performs half or more of the tr ansferring tasks TRANSFERS: TOILET - STEP 4: Does the patient need only incidental help such as contact guard or steadying during toilet transfer? Yes. TRANSFERS: TOILET - SCORE: 4-MIN TRANSFERS: SHOWER: Activity did not occur on this shift TRANSFERS: SHOWER - SCORE: 0-UNK TRANSFERS: TUB: Activity did not occur on this shift TRANSFERS: TUB - SCORE: 0-UNK LOCOMOTION: WALK: Activity did not occur on this shift LOCOMOTION: WALK - SCORE: 0-UNK LOCOMOTION: WHEELCHAIR: Activity did not occur on this shift LOCOMOTION: WHEELCHAIR - SCORE: 0-UNK COMPREHENSION: COMPREHENSION: TYPE: Both COMPREHENSION - STEP 1: Does the patient require help from a person or device, or need extra time to understand complex and a bstract ideas (such as current events, finances, discharge planning, medical issues, relationships, e tc)? No. COMPREHENSION - STEP 2: Does the patient need extra time, require an assistive device (such as glasses for visual comprehensi on or a hearing aid for auditory comprehension) or does s/he have mild difficulty understanding compl ex and abstract information? Yes. COMPREHENSION - SCORE: 6-SHREE EXPRESSION EXPRESSION: TYPE: Both EXPRESSION - STEP 1: Does the patient require help from a person or device, or need extra time expressing complex and abst ract ideas (such as current events, finances, discharge planning, medical issues, relationships, etc) ? No. EXPRESSION - STEP 2: Does the patient need extra time, require an assistive device (such as augmentive communication syste m or a communication board), OR does s/he have mild difficulty expressing complex and abstract ideas (including mild dysarthria or mild word-find problems)? Yes. EXPRESSION - SCORE: 6-SHREE SOCIAL INTERACTION: SOCIAL INTERACTION - STEP 1: Does the patient require a helper to interact with others in social and therapeutic situations? No. SOCIAL INTERACTION - STEP 2: Does the patient need extra time in social situations, OR does s/he interact with staff, other patien ts, and family members ONLY in structured environments, OR does s/he require medication for social in teraction? Yes, patient needs extra time SOCIAL INTERACTION - SCORE: 6-SHREE PROBLEM SOLVING: PROBLEM SOLVING - STEP 1: Does the patient need help from a person or device, or need extra time to solve complex problems such as managing a checking account or confronting interpersonal problems? No. PROBLEM SOLVING - STEP 2: Does the patient require extra time to make decisions or solve problems, OR does s/he have slight dif ficulty reading, initiating, or self-correcting in unfamiliar situations? Yes, patient needs extra ti me. PROBLEM SOLVING - SCORE: 6-SHREE MEMORY: MEMORY - STEP 1: Does the patient need help from a person or device, or need extra time to remember frequently encount ered people, daily routines, and executing requests? No. MEMORY - STEP 2: Does the patient have slight difficulty recognizing frequently encountered people, daily routines, or executing requests without the need for repetition or using self-initiated or environmental cues to remember? Yes. MEMORY - SCORE: 6-SHREE SIGNATURE PANEL: The following modified sections: Eating - Score, Grooming - Score, Bathing - Score, Dressing - Upper Body - Score, Dressing - Lower Body - Score, Toileting - Score, Bladder Management - Score, Bowel Man agement - Score, Transfers: Bed, Chair, Wheelchair - Score, Transfers: Toilet - Score, Transfers: Christina wer - Score, Transfers: Tub - Score, Locomotion: Walk - Score, Locomotion: Wheelchair - Score, Compre hension - Score, Expression - Score, Social Interaction - Score, Problem Solving - Score, Memory - Sc ore were [electronically] signed by Keyshawn Joseph on FriOct 18 2018 11:34:11 GMT-0500 (Central Daylight Time)
--- NOTE | 2018-10-18 15:28 | PN ---
Date of Progress Note: 10/18/2018 Subjective: Patient was seen this morning for followup. No new complaints or problems reported by bucky bernabe except he started to have left knee pain and swelling as of yesterday after, he thinks, he wal ked well too much. There was no fall, no injury. Objective: Vital Signs: Reviewed. HEENT: Unremarkable. Lungs: Clear to auscultation. Heart: Sounds normal. Abdomen: Soft. Bowel sounds normal. No guarding, rigidity, tenderness, distention. Extremities: No leg edema. Left knee has mild edema with painful range of motion. Normal overlying skin color and temperature. Impression: 1.Left knee pain. 2.Constipation. 3.Debility. 4.Generalized weakness. Plan: We will get a knee x-ray done on the left knee. I suspect that this is due to underlying oste oarthritis problem. We will also start Voltaren gel topically, applied 3 times a day to the left kne e. Continue Lidoderm patch at nighttime and take it off at morning. Continue Xarelto for DVT prophy laxis. If Voltaren patch does not help, then we will start him on Celebrex as patient reports that i n the past he has taken it for arthritis pain and it has worked out well for him. Constipation will be managed with milk of magnesia. Yesterday, he took 1 dose and had a small bowel movement. We will give another dose today. RUI/MODL Voice ID: [id number] Report ID: [id number]
--- NOTE | 2018-10-18 18:18 | RAD REPORT ---
EXAM DESCRIPTION: RAD - Knee Left 3 View - 10/18/2018 5:20 pm CLINICAL HISTORY: Left knee pain and swelling, no precipitating event COMPARISON: None. FINDINGS: No fracture, dislocation or periosteal reaction.Moderately large joint effusion is evident superior to the patella. Medial and lateral compartment narrowing are present with marginal spurring . Patella femoral joint space narrowed also with marginal spurs. No foreign body in the soft tissues. 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 No acute bone finding. Clinical concerns for internal derangement or occult bony injury could be further assessed with MR im aging.
[2018-10-18] MEDS: ATORVASTATIN 40 MG TAB PO SCH (19:31)
--- NOTE | 2018-10-19 01:53 | FAST ---
SHIFT START DATE/TIME: 10/18/2018 19:00 (CDT) SHIFT END DATE/TIME: 10/19/2018 07:00 (CDT) NAME JILLIAN JARQUIN DATE OF : 1930 DATE OF ADMISSION: 10/15/2018 09:52 (CDT) PHONE: AGE: 87 N# [id number] GENDER: Male ENCOUNTER PHYSICIAN: Dr. Chelly Limon ADMISSION DIAGNOSIS: - Orthopaedic Disorders 08 - Unilateral Hip Fracture (10.18) Right Hip Intertrochanteric Fracture. EATING: Activity did not occur on this shift EATING - SCORE: 0-UNK GROOMING: Activity did not occur on this shift GROOMING - SCORE: 0-UNK BATHING: Activity did not occur on this shift BATHING - SCORE: 0-UNK DRESSING - UPPER BODY: Patient is not dressing in public clothing ARTICLES SCORE Total number of steps: 0 DRESSING - UPPER BODY - SCORE: 0-UNK DRESSING - LOWER BODY: Patient is not dressing in public clothing ARTICLES SCORE Total number of steps: 0 DRESSING - LOWER BODY - SCORE: 0-UNK TOILETING: TOILETING - STEP 1: Does the patient require the assistance of a person or device, or need extra time with toileting? Yes . TOILETING - STEP 2: Does the patient require the assistance of a helper? Yes. TOILETING - STEP 3: How much assistance does the patient require from the helper? Only supervision TOILETING - SCORE: 5-SUP BLADDER MANAGEMENT: BLADDER MANAGEMENT - STEP 1: Does the patient control the bladder completely and intentionally without equipment or devices or med ications, and is always continent? No. BLADDER MANAGEMENT - STEP 2: Does the patient require the assistance of a helper? Yes. BLADDER MANAGEMENT - STEP 3: How much assistance does the patient require from the helper? Only set-up of equipment - such as plac ing it within reach of the patient or emptying a device - to maintain either satisfactory voiding pat tern or managing an external device, such as an absorbent pad, ileal device, or catheter BLADDER MANAGEMENT - SCORE: 5-SUP BOWEL MANAGEMENT: BOWEL MANAGEMENT - STEP 1: Does the patient control bowels completely and intentionally without equipment devices or medications AND is always continent? No. BOWEL MANAGEMENT - STEP 2: Does the patient require the assistance of a helper? No, patient requires medication for control such as stool softeners, suppositories, laxatives, enemas, or OTC medications BOWEL MANAGEMENT - SCORE: 6-SHREE TRANSFERS: BED, CHAIR, WHEELCHAIR: Activity did not occur on this shift TRANSFERS: BED, CHAIR, WHEELCHAIR - SCORE: 0-UNK TRANSFERS: TOILET: Activity did not occur on this shift TRANSFERS: TOILET - SCORE: 0-UNK TRANSFERS: SHOWER: Activity did not occur on this shift TRANSFERS: SHOWER - SCORE: 0-UNK TRANSFERS: TUB: Activity did not occur on this shift TRANSFERS: TUB - SCORE: 0-UNK LOCOMOTION: WALK: Activity did not occur on this shift LOCOMOTION: WALK - SCORE: 0-UNK LOCOMOTION: WHEELCHAIR: Activity did not occur on this shift LOCOMOTION: WHEELCHAIR - SCORE: 0-UNK COMPREHENSION: COMPREHENSION: TYPE: Both COMPREHENSION - STEP 1: Does the patient require help from a person or device, or need extra time to understand complex and a bstract ideas (such as current events, finances, discharge planning, medical issues, relationships, e tc)? Yes. COMPREHENSION - STEP 2: Does the patient require help to understand questions or statements about basic needs or ideas (such as hunger, thirst, sleep, safety, daily schedule, room location, or discomfort) half or more of the t shira? No. COMPREHENSION - STEP 3: How often does the patient need help to understand directions and conversation about basic needs? 10% - 24% of the time COMPREHENSION - SCORE: 4-MIN EXPRESSION EXPRESSION: TYPE: Both EXPRESSION - STEP 1: Does the patient require help from a person or device, or need extra time expressing complex and abst ract ideas (such as current events, finances, discharge planning, medical issues, relationships, etc) ? No. EXPRESSION - STEP 2: Does the patient need extra time, require an assistive device (such as augmentive communication syste m or a communication board), OR does s/he have mild difficulty expressing complex and abstract ideas (including mild dysarthria or mild word-find problems)? No. EXPRESSION - SCORE: 7-IND SOCIAL INTERACTION: SOCIAL INTERACTION - STEP 1: Does the patient require a helper to interact with others in social and therapeutic situations? No. SOCIAL INTERACTION - STEP 2: Does the patient need extra time in social situations, OR does s/he interact with staff, other patien ts, and family members ONLY in structured environments, OR does s/he require medication for social in teraction? Yes, patient needs extra time SOCIAL INTERACTION - SCORE: 6-SHREE PROBLEM SOLVING: PROBLEM SOLVING - STEP 1: Does the patient need help from a person or device, or need extra time to solve complex problems such as managing a checking account or confronting interpersonal problems? Yes. PROBLEM SOLVING - STEP 2: Does the patient solve basic routine problems half or more of the time? Yes. PROBLEM SOLVING - STEP 3: How often does the patient need help to solve basic routine problems? 10%-24% of the time PROBLEM SOLVING - SCORE: 4-MIN MEMORY: MEMORY - STEP 1: Does the patient need help from a person or device, or need extra time to remember frequently encount ered people, daily routines, and executing requests? No. MEMORY - STEP 2: Does the patient have slight difficulty recognizing frequently encountered people, daily routines, or executing requests without the need for repetition or using self-initiated or environmental cues to remember? Yes. MEMORY - SCORE: 6-SHREE SIGNATURE PANEL: The following modified sections: Eating - Score, Grooming - Score, Dressing - Upper Body - Score, Micky ssing - Lower Body - Score, Toileting - Score, Bladder Management - Score, Bowel Management - Score, Transfers: Bed, Chair, Wheelchair - Score, Transfers: Toilet - Score, Transfers: Shower - Score, Lazar sfers: Tub - Score, Locomotion: Walk - Score, Locomotion: Wheelchair - Score, Comprehension - Score, Expression - Score, Social Interaction - Score, Problem Solving - Score, Memory - Score were [electro nically] signed by Ramandeep Shirley CNA on FriOct 19 2018 01:52:34 T-0500 (Central Daylight Time)
[2018-10-19] MEDS: PANTOPRAZOLE 40MG TABLET PO SCH (04:53)
[2018-10-19] MEDS: ACETAMINOPHEN 500 MG TAB PO PRN (08:21)
[2018-10-19] MEDS: SOTALOL HCL 80 MG TAB PO SCH ×2 (08:21→20:38)
[2018-10-19] MEDS: GABAPENTIN 400 MG CAP PO SCH ×3 (08:22→20:39)
[2018-10-19] MEDS: RIVAROXABAN 10 MG TABLET PO SCH (08:22)
[2018-10-19] MEDS: ALLOPURINOL 300 MG TAB PO SCH (08:22)
[2018-10-19] MEDS: LISINOPRIL 5 MG TAB PO SCH ×2 (08:23→20:39)
--- NOTE | 2018-10-19 15:33 | FAST ---
ENCOUNTER DATE AND TIME: 10/19/2018 08:00 (CDT) NAME JILLIAN JARQUIN DATE OF : 1930 DATE OF ADMISSION: 10/15/2018 09:52 (CDT) PHONE: AGE: 87 SSN# [id number] GENDER: Male ENCOUNTER PHYSICIAN: Dr. Chelly Limon ADMISSION DIAGNOSIS: - Orthopaedic Disorders 08 - Unilateral Hip Fracture (10.18) Right Hip Intertrochanteric Fracture. EATING: Activity did not occur on this shift EATING - SCORE: 0-UNK GROOMING: Activity did not occur on this shift GROOMING - SCORE: 0-UNK BATHING: Activity did not occur on this shift BATHING - SCORE: 0-UNK DRESSING - UPPER BODY: Activity did not occur on this shift Patient is not dressing in public clothing ARTICLES SCORE Total number of steps: 0 DRESSING - UPPER BODY - SCORE: 0-UNK DRESSING - LOWER BODY: Activity did not occur on this shift Patient is not dressing in public clothing ARTICLES SCORE Total number of steps: 0 DRESSING - LOWER BODY - SCORE: 0-UNK TOILETING: Activity did not occur on this shift TOILETING - SCORE: 0-UNK BLADDER MANAGEMENT: Activity did not occur on this shift BLADDER MANAGEMENT - SCORE: 7-IND BOWEL MANAGEMENT: Activity did not occur on this shift BOWEL MANAGEMENT - SCORE: 7-IND TRANSFERS: BED, CHAIR, WHEELCHAIR: TRANSFERS: BED, CHAIR, WHEELCHAIR - STEP 1: Does the patient require assistance of a person or device, or need extra time with bed, chair, or whe elchair transfers? Yes. TRANSFERS: BED, CHAIR, WHEELCHAIR - STEP 2: Does the patient require the assistance of a helper? Yes. TRANSFERS: BED, CHAIR, WHEELCHAIR - STEP 3: How much assistance does the patient require from the helper? Lifting of the patient TRANSFERS: BED, CHAIR, WHEELCHAIR - STEP 4: Does the helper lift the patient ONLY up? ONLY down? Up AND Down? ONLY up. TRANSFERS: BED, CHAIR, WHEELCHAIR - SCORE: 3-MOD TRANSFERS: TOILET: Activity did not occur on this shift TRANSFERS: TOILET - SCORE: 0-UNK TRANSFERS: SHOWER: Activity did not occur on this shift TRANSFERS: SHOWER - SCORE: 0-UNK TRANSFERS: TUB: Activity did not occur on this shift TRANSFERS: TUB - SCORE: 0-UNK LOCOMOTION: WALK: LOCOMOTION: WALK - STEP 1: Does the patient need help from a person or device, or need extra time to walk 150 feet? Yes. LOCOMOTION: WALK - STEP 2: How much assistance does the patient require to walk a minimum of 150 feet? Only incidental help such as contact guarding or steadying LOCOMOTION: WALK - SCORE: 4-MIN LOCOMOTION: WHEELCHAIR: Activity did not occur on this shift LOCOMOTION: WHEELCHAIR - SCORE: 0-UNK LOCOMOTION: STAIRS: Activity did not occur on this shift LOCOMOTION: STAIRS - SCORE: 0-UNK COMPREHENSION: COMPREHENSION - SCORE: 0-UNK EXPRESSION EXPRESSION - SCORE: 0-UNK SOCIAL INTERACTION: SOCIAL INTERACTION - SCORE: 0-UNK PROBLEM SOLVING: PROBLEM SOLVING - SCORE: 0-UNK MEMORY: MEMORY - SCORE: 0-UNK SIGNATURE PANEL: The following modified sections: Transfers: Bed, Chair, Wheelchair - Score, Transfers: Toilet - Score , Locomotion: Walk - Score, Locomotion: Wheelchair - Score, Locomotion: Stairs - Score were [electron cordell] signed by Rubio Arambula PT on FriOct 19 2018 15:32:02 T-0500 (Central Daylight Time)
--- NOTE | 2018-10-19 16:01 | FAST ---
ENCOUNTER DATE AND TIME: 10/19/2018 08:00 (CDT) NAME JILLIAN JARQUIN DATE OF : 1930 DATE OF ADMISSION: 10/15/2018 09:52 (CDT) PHONE: AGE: 87 SSN# [id number] GENDER: Male ENCOUNTER PHYSICIAN: Dr. Chelly Limon ADMISSION DIAGNOSIS: - Orthopaedic Disorders 08 - Unilateral Hip Fracture (.) Right Hip Intertrochanteric Fracture. EATING: Activity did not occur on this shift EATING - SCORE: 0-UNK GROOMING: Comb/brush hair Oral care Wash, rinse, and dry face Wash, rinse, and dry hands GROOMING - STEP 1: Does the patient require the assistance of a person or device, or need extra time when grooming? No. GROOMING - SCORE: 7-IND BATHING: Abdomen Buttocks Chest Left arm Left lower leg and foot Left upper leg Perineal area Right arm Right lower leg and foot Right upper leg BATHING - STEP 1: Does the patient require the assistance of a person or device, or need extra time when bathing? Yes. BATHING - STEP 2: Does the patient require the assistance of a helper? Yes. BATHING - STEP 3: How much assistance does the patient require from the helper? Only supervision, cuing, coaxing, instr uctions, encouragement BATHING - SCORE: 5-SUP DRESSING - UPPER BODY: Button down shirt or blouse - NOT tucked in (four steps) T-shirt/pullover shirt (four steps) ARTICLES SCORE Total number of steps: 8 DRESSING - UPPER BODY - STEP 1: Does the patient require help from a person or device, or need extra time when dressing above the [address]? Yes. DRESSING - UPPER BODY - STEP 2: Does the patient require the assistance of a helper? Yes. DRESSING - UPPER BODY - STEP 3: Does the helper touch the patient while dressing? No. DRESSING - UPPER BODY - SCORE: 5-SUP DRESSING - LOWER BODY: Elastic waist pants (three steps) Slip-on shoe - Left foot (one step) Slip-on shoe - Right foot (one step) Sock - Left foot (one step) Sock - Right foot (one step) Underwear (three steps) ARTICLES SCORE Total number of steps: 10 DRESSING - LOWER BODY - STEP 1: Does the patient require help from a person or device, or need extra time when dressing below the [address]? Yes. DRESSING - LOWER BODY - STEP 2: Does the patient require the assistance of a helper? Yes. DRESSING - LOWER BODY - STEP 3: Does the helper touch the patient while dressing? Yes. DRESSING - LOWER BODY - STEP 4: How many of the total steps does the patient complete on his/her own? 9 DRESSING - LOWER BODY - SCORE: 4-MIN TOILETING: Activity did not occur on this shift TOILETING - SCORE: 0-UNK BLADDER MANAGEMENT: Activity did not occur on this shift BLADDER MANAGEMENT - SCORE: 7-IND BOWEL MANAGEMENT: Activity did not occur on this shift BOWEL MANAGEMENT - SCORE: 7-IND TRANSFERS: BED, CHAIR, WHEELCHAIR: Activity did not occur on this shift TRANSFERS: BED, CHAIR, WHEELCHAIR - SCORE: 0-UNK TRANSFERS: TOILET: Activity did not occur on this shift TRANSFERS: TOILET - SCORE: 0-UNK TRANSFERS: SHOWER: TRANSFERS: SHOWER - STEP 1: Does the patient require the assistance of a person or device, or need extra time with shower transfe rs? Yes. TRANSFERS: SHOWER - STEP 2: Does the patient require the assistance of a helper? Yes. TRANSFERS: SHOWER - STEP 3: How much assistance does the patient require from the helper? Only supervision, cuing, coaxing, or he lp to set out transfer equipment or to lock brakes and/or lift foot rests TRANSFERS: SHOWER - SCORE: 5-SUP TRANSFERS: TUB: Activity did not occur on this shift TRANSFERS: TUB - SCORE: 0-UNK LOCOMOTION: WALK: Activity did not occur on this shift LOCOMOTION: WALK - SCORE: 0-UNK LOCOMOTION: WHEELCHAIR: Activity did not occur on this shift LOCOMOTION: WHEELCHAIR - SCORE: 0-UNK LOCOMOTION: STAIRS: Activity did not occur on this shift LOCOMOTION: STAIRS - SCORE: 0-UNK COMPREHENSION: COMPREHENSION: TYPE: Both COMPREHENSION - STEP 1: Does the patient require help from a person or device, or need extra time to understand complex and a bstract ideas (such as current events, finances, discharge planning, medical issues, relationships, e tc)? No. COMPREHENSION - STEP 2: Does the patient need extra time, require an assistive device (such as glasses for visual comprehensi on or a hearing aid for auditory comprehension) or does s/he have mild difficulty understanding compl ex and abstract information? Yes. COMPREHENSION - SCORE: 6-SHREE EXPRESSION EXPRESSION: TYPE: Both EXPRESSION - STEP 1: Does the patient require help from a person or device, or need extra time expressing complex and abst ract ideas (such as current events, finances, discharge planning, medical issues, relationships, etc) ? No. EXPRESSION - STEP 2: Does the patient need extra time, require an assistive device (such as augmentive communication syste m or a communication board), OR does s/he have mild difficulty expressing complex and abstract ideas (including mild dysarthria or mild word-find problems)? Yes. EXPRESSION - SCORE: 6-SHREE SOCIAL INTERACTION: SOCIAL INTERACTION - STEP 1: Does the patient require a helper to interact with others in social and therapeutic situations? No. SOCIAL INTERACTION - STEP 2: Does the patient need extra time in social situations, OR does s/he interact with staff, other patien ts, and family members ONLY in structured environments, OR does s/he require medication for social in teraction? Yes, patient needs extra time SOCIAL INTERACTION - SCORE: 6-SHREE PROBLEM SOLVING: PROBLEM SOLVING - STEP 1: Does the patient need help from a person or device, or need extra time to solve complex problems such as managing a checking account or confronting interpersonal problems? No. PROBLEM SOLVING - STEP 2: Does the patient require extra time to make decisions or solve problems, OR does s/he have slight dif ficulty reading, initiating, or self-correcting in unfamiliar situations? Yes, patient needs extra ti me. PROBLEM SOLVING - SCORE: 6-SHREE MEMORY: MEMORY - STEP 1: Does the patient need help from a person or device, or need extra time to remember frequently encount ered people, daily routines, and executing requests? No. MEMORY - STEP 2: Does the patient have slight difficulty recognizing frequently encountered people, daily routines, or executing requests without the need for repetition or using self-initiated or environmental cues to remember? Yes. MEMORY - SCORE: 6-SHREE SIGNATURE PANEL: The following modified sections: Eating - Score, Grooming - Score, Bathing - Score, Dressing - Upper Body - Score, Dressing - Lower Body - Score, Toileting - Score, Transfers: Bed, Chair, Wheelchair - S core, Transfers: Toilet - Score, Transfers: Tub - Score, Transfers: Shower - Score, Comprehension - S core, Expression - Score, Social Interaction - Score, Problem Solving - Score, Memory - Score were [e lectronically] signed by Pennie Bundy OT on FriOct 19 2018 16:00:41 GMT-0500 (Central Daylight T shira)
[2018-10-19] MEDS: ATORVASTATIN 40 MG TAB PO SCH (20:40)
[2018-10-19] MEDS: LIDOCAINE 5% PATCH TOP SCH (20:40)
--- NOTE | 2018-10-20 00:12 | PN ---
Date of Progress Note: 10/19/2018 Subjective: Patient was seen this morning for followup. His knee pain was better with Voltaren gel. Objective: Vital Signs: Reviewed. HEENT: Unremarkable. Lungs: Clear to auscultation. Heart: Sounds normal. Abdomen: Soft. Bowel sounds normal. No guarding, rigidity, tenderness, or distention. Extremities: No leg edema. Left knee swelling is better today than yesterday. Laboratory Data: Left knee x-ray shows significant arthritis changes as noted yesterday on the knee x-ray. Impression: 1.Osteoarthritis, left knee. 2.Debility. 3.Generalized weakness. 4.Coronary artery disease. 5.Hypertension. Plan: Continue current medications. Continue Voltaren gel topically, apply to both knees as he is a lso complaining of a little bit of pain in the right knee as well. Physical therapy to be continued per rehab physician. We will see him tomorrow for followup. Patient's constipation got resolved yes terday with milk of magnesia. RUI/MODL Voice ID: [id number] Report ID: [id number]
[2018-10-20] MEDS: PANTOPRAZOLE 40MG TABLET PO SCH (06:55)
[2018-10-20] MEDS ORDERED: MAGNES/ALUMIN/SIMET 30ML UCUP PO PRN (08:12)
[2018-10-20] MEDS: ONDANSETRON 4 MG (ODT) TAB PO PRN (09:00)
[2018-10-20] MEDS: SOTALOL HCL 80 MG TAB PO SCH ×2 (09:01→20:35)
[2018-10-20] MEDS: FERROUS SULFATE 325 MG TAB PO SCH (09:01)
[2018-10-20] MEDS: ALLOPURINOL 300 MG TAB PO SCH (09:01)
[2018-10-20] MEDS: GABAPENTIN 400 MG CAP PO SCH ×3 (09:01→20:36)
[2018-10-20] MEDS: RIVAROXABAN 10 MG TABLET PO SCH (09:01)
[2018-10-20] MEDS: LISINOPRIL 5 MG TAB PO SCH ×2 (09:01→20:00)
[2018-10-20] MEDS: LIDOCAINE 5% PATCH TOP SCH (20:35)
[2018-10-20] MEDS: ATORVASTATIN 40 MG TAB PO SCH (20:37)
[2018-10-20] MEDS: DIAZEPAM 2 MG TABLET PO PRN (20:41)
--- NOTE | 2018-10-21 00:31 | PN ---
Date of Progress Note: 10/20/2018 Subjective: Patient was seen this morning for followup. No new complaints or problems reported by bucky bernabe. Lying in bed, not in any distress. Knee pain is better. Last bowel movement was day before yesterday. No abdominal pain, nausea, or vomiting. Objective: Vital Signs: Reviewed. HEENT: Unremarkable. Lungs: Clear to auscultation. Heart: Sounds normal. Abdomen: Soft. Bowel sounds normal. No guarding, rigidity, tenderness, or distention. Extremities: No leg edema. Left knee swelling has improved. Impression: 1.Osteoarthritis, multiple sites. 2.Debility. 3.Generalized weakness. 4.Coronary artery disease. 5.Carotid artery stenosis. 6.Hypertension. 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 Nurse was advised to tr y to get that information per request. We will continue current medications. I will see him tomorro w for followup. RUI/MODL Voice ID: [id number] Report ID: [id number]
[2018-10-21] MEDS: PANTOPRAZOLE 40MG TABLET PO SCH (06:49)
[2018-10-21] MEDS: ACETAMINOPHEN 500 MG TAB PO PRN (06:50)
[2018-10-21] MEDS: RIVAROXABAN 10 MG TABLET PO SCH (08:32)
[2018-10-21] MEDS: ALLOPURINOL 300 MG TAB PO SCH (08:32)
[2018-10-21] MEDS: SOTALOL HCL 80 MG TAB PO SCH ×2 (08:32→19:23)
[2018-10-21] MEDS: GABAPENTIN 400 MG CAP PO SCH ×3 (08:32→19:20)
[2018-10-21] MEDS: LISINOPRIL 5 MG TAB PO SCH ×2 (08:33→19:24)
[2018-10-21] MEDS: ONDANSETRON 4 MG (ODT) TAB PO PRN (08:35)
--- NOTE | 2018-10-21 15:07 | FAST ---
SHIFT START DATE/TIME: 10/21/2018 07:00 (CDT) SHIFT END DATE/TIME: 10/21/2018 19:00 (CDT) NAME JILLIAN JARQUIN DATE OF : 1930 DATE OF ADMISSION: 10/15/2018 09:52 (CDT) PHONE: AGE: 87 N# [id number] GENDER: Male ENCOUNTER PHYSICIAN: Dr. Chelly Limon ADMISSION DIAGNOSIS: - Orthopaedic Disorders 08 - Unilateral Hip Fracture (10.18) Right Hip Intertrochanteric Fracture. EATING: EATING - STEP 1: Does the patient require the assistance of a person or device, or need extra time when eating? Yes. EATING - STEP 2: Does the patient require the assistance of a helper? No, patient only requires an assistive device, O R s/he takes more than reasonable time to eat, OR there is a safety concern, OR s/he requires modifie d food consistency EATING - SCORE: 6-SHREE GROOMING: Activity did not occur on this shift GROOMING - SCORE: 0-UNK BATHING: Activity did not occur on this shift BATHING - SCORE: 0-UNK DRESSING - UPPER BODY: Activity did not occur on this shift ARTICLES SCORE Total number of steps: 0 DRESSING - UPPER BODY - SCORE: 0-UNK DRESSING - LOWER BODY: Activity did not occur on this shift ARTICLES SCORE Total number of steps: 0 DRESSING - LOWER BODY - SCORE: 0-UNK TOILETING: TOILETING - STEP 1: Does the patient require the assistance of a person or device, or need extra time with toileting? Yes . TOILETING - STEP 2: Does the patient require the assistance of a helper? Yes. TOILETING - STEP 3: How much assistance does the patient require from the helper? Hands-on assistance from the helper TOILETING - STEP 4: Of the 3 tasks: 1) Adjusting clothing prior to use, 2) Cleansing of perineal area, 3) Adjusting clot james after use; How many tasks does the patient perform WITHOUT assistance of the helper? Three tasks with steadying assistance from the helper TOILETING - SCORE: 4-MIN BLADDER MANAGEMENT: BLADDER MANAGEMENT - STEP 1: Does the patient control the bladder completely and intentionally without equipment or devices or med ications, and is always continent? No. BLADDER MANAGEMENT - STEP 2: Does the patient require the assistance of a helper? No, patient requires and independently uses an a ssistive device, such as a urinal, bedpan, bedside commode, catheter, absorbent pad, or collecting de vice BLADDER MANAGEMENT - SCORE: 6-SHREE BOWEL MANAGEMENT: Activity did not occur on this shift BOWEL MANAGEMENT - SCORE: 7-IND TRANSFERS: BED, CHAIR, WHEELCHAIR: TRANSFERS: BED, CHAIR, WHEELCHAIR - STEP 1: Does the patient require assistance of a person or device, or need extra time with bed, chair, or whe elchair transfers? Yes. TRANSFERS: BED, CHAIR, WHEELCHAIR - STEP 2: Does the patient require the assistance of a helper? Yes. TRANSFERS: BED, CHAIR, WHEELCHAIR - STEP 3: How much assistance does the patient require from the helper? Steadying/guiding assistance TRANSFERS: BED, CHAIR, WHEELCHAIR - SCORE: 4-MIN TRANSFERS: TOILET: TRANSFERS: TOILET - STEP 1: Does the patient require the assistance of a person or device, or need extra time with toilet transfe rs? Yes. TRANSFERS: TOILET - STEP 2: Does the patient require the assistance of a helper? Yes. TRANSFERS: TOILET - STEP 3: How much assistance does the patient require from the helper? Patient performs half or more of the tr ansferring tasks TRANSFERS: TOILET - STEP 4: Does the patient need only incidental help such as contact guard or steadying during toilet transfer? No. Patient needs more than incidental help TRANSFERS: TOILET - SCORE: 3-MOD TRANSFERS: SHOWER: Activity did not occur on this shift TRANSFERS: SHOWER - SCORE: 0-UNK TRANSFERS: TUB: Activity did not occur on this shift TRANSFERS: TUB - SCORE: 0-UNK LOCOMOTION: WALK: Activity did not occur on this shift LOCOMOTION: WALK - SCORE: 0-UNK LOCOMOTION: WHEELCHAIR: Activity did not occur on this shift LOCOMOTION: WHEELCHAIR - SCORE: 0-UNK COMPREHENSION: COMPREHENSION: TYPE: Both COMPREHENSION - STEP 1: Does the patient require help from a person or device, or need extra time to understand complex and a bstract ideas (such as current events, finances, discharge planning, medical issues, relationships, e tc)? No. COMPREHENSION - STEP 2: Does the patient need extra time, require an assistive device (such as glasses for visual comprehensi on or a hearing aid for auditory comprehension) or does s/he have mild difficulty understanding compl ex and abstract information? Yes. COMPREHENSION - SCORE: 6-SHREE EXPRESSION EXPRESSION: TYPE: Both EXPRESSION - STEP 1: Does the patient require help from a person or device, or need extra time expressing complex and abst ract ideas (such as current events, finances, discharge planning, medical issues, relationships, etc) ? No. EXPRESSION - STEP 2: Does the patient need extra time, require an assistive device (such as augmentive communication syste m or a communication board), OR does s/he have mild difficulty expressing complex and abstract ideas (including mild dysarthria or mild word-find problems)? Yes. EXPRESSION - SCORE: 6-SHREE SOCIAL INTERACTION: SOCIAL INTERACTION - STEP 1: Does the patient require a helper to interact with others in social and therapeutic situations? No. SOCIAL INTERACTION - STEP 2: Does the patient need extra time in social situations, OR does s/he interact with staff, other patien ts, and family members ONLY in structured environments, OR does s/he require medication for social in teraction? Yes, patient needs extra time SOCIAL INTERACTION - SCORE: 6-SHREE PROBLEM SOLVING: PROBLEM SOLVING - STEP 1: Does the patient need help from a person or device, or need extra time to solve complex problems such as managing a checking account or confronting interpersonal problems? No. PROBLEM SOLVING - STEP 2: Does the patient require extra time to make decisions or solve problems, OR does s/he have slight dif ficulty reading, initiating, or self-correcting in unfamiliar situations? Yes, patient needs extra ti me. PROBLEM SOLVING - SCORE: 6-SHREE MEMORY: MEMORY - STEP 1: Does the patient need help from a person or device, or need extra time to remember frequently encount ered people, daily routines, and executing requests? No. MEMORY - STEP 2: Does the patient have slight difficulty recognizing frequently encountered people, daily routines, or executing requests without the need for repetition or using self-initiated or environmental cues to remember? Yes. MEMORY - SCORE: 6-SHREE SIGNATURE PANEL: The following modified sections: Eating - Score, Grooming - Score, Bathing - Score, Dressing - Upper Body - Score, Dressing - Lower Body - Score, Toileting - Score, Bladder Management - Score, Bowel Man agement - Score, Transfers: Bed, Chair, Wheelchair - Score, Transfers: Toilet - Score, Transfers: Christina wer - Score, Transfers: Tub - Score, Locomotion: Walk - Score, Locomotion: Wheelchair - Score, Compre hension - Score, Expression - Score, Social Interaction - Score, Problem Solving - Score, Memory - Sc ore were [electronically] signed by Keyshawn Joseph on FriOct 21 2018 15:06:33 GMT-0500 (Central Daylight Time)
--- NOTE | 2018-10-21 15:24 | FAST ---
ENCOUNTER DATE AND TIME: 10/21/2018 08:00 (CDT) NAME JILLIAN JARQUIN DATE OF : 1930 DATE OF ADMISSION: 10/15/2018 09:52 (CDT) PHONE: AGE: 87 SSN# [id number] GENDER: Male ENCOUNTER PHYSICIAN: Dr. Chelly Limon ADMISSION DIAGNOSIS: - Orthopaedic Disorders 08 - Unilateral Hip Fracture (10.18) Right Hip Intertrochanteric Fracture. EATING: Activity did not occur on this shift EATING - SCORE: 0-UNK GROOMING: Activity did not occur on this shift GROOMING - SCORE: 0-UNK BATHING: Activity did not occur on this shift BATHING - SCORE: 0-UNK DRESSING - UPPER BODY: Activity did not occur on this shift Patient is not dressing in public clothing ARTICLES SCORE Total number of steps: 0 DRESSING - UPPER BODY - SCORE: 0-UNK DRESSING - LOWER BODY: Activity did not occur on this shift Patient is not dressing in public clothing ARTICLES SCORE Total number of steps: 0 DRESSING - LOWER BODY - SCORE: 0-UNK TOILETING: Activity did not occur on this shift TOILETING - SCORE: 0-UNK BLADDER MANAGEMENT: Activity did not occur on this shift BLADDER MANAGEMENT - SCORE: 7-IND BOWEL MANAGEMENT: Activity did not occur on this shift BOWEL MANAGEMENT - SCORE: 7-IND TRANSFERS: BED, CHAIR, WHEELCHAIR: TRANSFERS: BED, CHAIR, WHEELCHAIR - STEP 1: Does the patient require assistance of a person or device, or need extra time with bed, chair, or whe elchair transfers? Yes. TRANSFERS: BED, CHAIR, WHEELCHAIR - STEP 2: Does the patient require the assistance of a helper? Yes. TRANSFERS: BED, CHAIR, WHEELCHAIR - STEP 3: How much assistance does the patient require from the helper? Only supervision TRANSFERS: BED, CHAIR, WHEELCHAIR - SCORE: 5-SUP TRANSFERS: TOILET: Activity did not occur on this shift TRANSFERS: TOILET - SCORE: 0-UNK TRANSFERS: SHOWER: Activity did not occur on this shift TRANSFERS: SHOWER - SCORE: 0-UNK TRANSFERS: TUB: Activity did not occur on this shift TRANSFERS: TUB - SCORE: 0-UNK LOCOMOTION: WALK: LOCOMOTION: WALK - STEP 1: Does the patient need help from a person or device, or need extra time to walk 150 feet? Yes. LOCOMOTION: WALK - STEP 2: How much assistance does the patient require to walk a minimum of 150 feet? Only supervision, cuing, or coaxing LOCOMOTION: WALK - SCORE: 5-SUP LOCOMOTION: WHEELCHAIR: Activity did not occur on this shift LOCOMOTION: WHEELCHAIR - SCORE: 0-UNK LOCOMOTION: STAIRS: Activity did not occur on this shift LOCOMOTION: STAIRS - SCORE: 0-UNK COMPREHENSION: COMPREHENSION - SCORE: 0-UNK EXPRESSION EXPRESSION - SCORE: 0-UNK SOCIAL INTERACTION: SOCIAL INTERACTION - SCORE: 0-UNK PROBLEM SOLVING: PROBLEM SOLVING - SCORE: 0-UNK MEMORY: MEMORY - SCORE: 0-UNK SIGNATURE PANEL: The following modified sections: Transfers: Bed, Chair, Wheelchair - Score, Transfers: Toilet - Score , Locomotion: Walk - Score, Locomotion: Wheelchair - Score, Locomotion: Stairs - Score were [electron icaaustin] signed by Rubio Arambula PT on FriOct 21 2018 15:23:21 T-0500 (Central Daylight Time)
[2018-10-21] MEDS: MAGNESIUM HYDROXIDE 8% 30 ML PO PRN (19:19)
[2018-10-21] MEDS: ATORVASTATIN 40 MG TAB PO SCH (19:20)
[2018-10-21] MEDS: LIDOCAINE 5% PATCH TOP SCH (19:29)
--- NOTE | 2018-10-22 01:36 | PN ---
Date of Progress Note: 10/21/2018 Subjective: The patient was seen this morning for followup. No new complaints, problems reported by patient except he reported his blood pressure was lower during nighttime. Denies any nausea, vomiti ng. No chest pain, no shortness of breath. Objective: Vital Signs: Reviewed. HEENT: Unremarkable. Lungs: Clear to auscultation. Cardiac: Heart sounds normal. Abdomen: Soft. Bowel sounds normal. No guarding, rigidity, tenderness, or distention. Extremities: No leg edema. Impression: 1.Hypertension. 2.Coronary artery disease. 3.Carotid artery stenosis. Plan: We will continue current medications. We will continue to monitor vital signs including blood pressure. No need to change any medication at this point. I will see him tomorrow for followup. P hysical therapy to be provided under guidance of Dr. Villegas. 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 RUI/MODL Voice ID: [id number] Report ID: [id number]
[2018-10-22] MEDS: PANTOPRAZOLE 40MG TABLET PO SCH (04:21)
[2018-10-22 07:07] LABS: Absolute Lymphocytes (CBC) 1.2 K/uL (0.7-4.9); Basophils % 0.8 % (0-1.3); Hematocrit 30.2 % (39.6-49.0); Lymphocytes % 23.1 % (15.3-44.8); MPV 8.6 fL (7.6-11.3); RBC Red Blood Cell Count 3.38 M/uL (4.33-5.43)
[2018-10-22 07:43] LABS: Albumin 1.9 g/dL (3.4-5.0); Magnesium 2.5 mg/dL (1.8-2.4); Potassium 4.8 mmol/L (3.5-5.1); Prealbumin 7.7 mg/dL (20-40)
--- NOTE | 2018-10-22 08:26 | FAST ---
ENCOUNTER DATE AND TIME: 10/20/2018 08:00 (CDT) NAME JILLIAN JARQUIN DATE OF : 1930 DATE OF ADMISSION: 10/15/2018 09:52 (CDT) PHONE: AGE: 87 SSN# [id number] GENDER: Male ENCOUNTER PHYSICIAN: Dr. Dejuan Villegas M.D. ADMISSION DIAGNOSIS: - Orthopaedic Disorders 08 - Unilateral Hip Fracture (.) Right Hip Intertrochanteric Fracture. EATING: Activity did not occur on this shift EATING - SCORE: 0-UNK GROOMING: Activity did not occur on this shift GROOMING - SCORE: 0-UNK BATHING: Activity did not occur on this shift BATHING - SCORE: 0-UNK DRESSING - UPPER BODY: Activity did not occur on this shift Patient is not dressing in public clothing ARTICLES SCORE Total number of steps: 0 DRESSING - UPPER BODY - SCORE: 0-UNK DRESSING - LOWER BODY: Activity did not occur on this shift Patient is not dressing in public clothing ARTICLES SCORE Total number of steps: 0 DRESSING - LOWER BODY - SCORE: 0-UNK TOILETING: Activity did not occur on this shift TOILETING - SCORE: 0-UNK BLADDER MANAGEMENT: Activity did not occur on this shift BLADDER MANAGEMENT - SCORE: 7-IND BOWEL MANAGEMENT: Activity did not occur on this shift BOWEL MANAGEMENT - SCORE: 7-IND TRANSFERS: BED, CHAIR, WHEELCHAIR: TRANSFERS: BED, CHAIR, WHEELCHAIR - STEP 1: Does the patient require assistance of a person or device, or need extra time with bed, chair, or whe elchair transfers? Yes. TRANSFERS: BED, CHAIR, WHEELCHAIR - STEP 2: Does the patient require the assistance of a helper? Yes. TRANSFERS: BED, CHAIR, WHEELCHAIR - STEP 3: How much assistance does the patient require from the helper? Only supervision TRANSFERS: BED, CHAIR, WHEELCHAIR - SCORE: 5-SUP TRANSFERS: TOILET: Activity did not occur on this shift TRANSFERS: TOILET - SCORE: 0-UNK TRANSFERS: SHOWER: Activity did not occur on this shift TRANSFERS: SHOWER - SCORE: 0-UNK TRANSFERS: TUB: Activity did not occur on this shift TRANSFERS: TUB - SCORE: 0-UNK LOCOMOTION: WALK: LOCOMOTION: WALK - STEP 1: Does the patient need help from a person or device, or need extra time to walk 150 feet? Yes. LOCOMOTION: WALK - STEP 2: How much assistance does the patient require to walk a minimum of 150 feet? Patient walks less than 1 50 feet - but more than 50 feet - with the assistance of only one helper LOCOMOTION: WALK - SCORE: 2-MAX LOCOMOTION: WHEELCHAIR: LOCOMOTION: WHEELCHAIR - STEP 1: Does the patient need help to go 150 feet in a wheelchair? Yes. LOCOMOTION: WHEELCHAIR - STEP 2: How much assistance does the patient need from the helper? Only supervision, cuing, or coaxing LOCOMOTION: WHEELCHAIR - SCORE: 5-SUP LOCOMOTION: STAIRS: Activity did not occur on this shift LOCOMOTION: STAIRS - SCORE: 0-UNK COMPREHENSION: COMPREHENSION - SCORE: 0-UNK EXPRESSION EXPRESSION - SCORE: 0-UNK SOCIAL INTERACTION: SOCIAL INTERACTION - SCORE: 0-UNK PROBLEM SOLVING: PROBLEM SOLVING - SCORE: 0-UNK MEMORY: MEMORY - SCORE: 0-UNK SIGNATURE PANEL: The following modified sections: Transfers: Bed, Chair, Wheelchair - Score, Transfers: Toilet - Score , Locomotion: Walk - Score, Locomotion: Wheelchair - Score, Locomotion: Stairs - Score were [electron cordell] signed by Murphy Frost PTA on FriOct 22 2018 08:24:28 GMT-0500 (Central Daylight Time)
[2018-10-22] MEDS: FERROUS SULFATE 325 MG TAB PO SCH (09:00)
[2018-10-22] MEDS: ALLOPURINOL 300 MG TAB PO SCH (09:00)
[2018-10-22] MEDS: SOTALOL HCL 80 MG TAB PO SCH ×2 (09:00→20:58)
[2018-10-22] MEDS: ONDANSETRON 4 MG (ODT) TAB PO PRN (09:00)
[2018-10-22] MEDS: GABAPENTIN 400 MG CAP PO SCH ×3 (09:00→20:56)
[2018-10-22] MEDS: RIVAROXABAN 10 MG TABLET PO SCH (09:01)
[2018-10-22] MEDS: LISINOPRIL 5 MG TAB PO SCH ×2 (09:01→20:57)
[2018-10-22] MEDS: ACETAMINOPHEN 500 MG TAB PO PRN (09:01)
--- NOTE | 2018-10-22 14:51 | FAST ---
SHIFT START DATE/TIME: 10/22/2018 07:00 (CDT) SHIFT END DATE/TIME: 10/22/2018 19:00 (CDT) NAME JILLIAN JARQUIN DATE OF : 1930 DATE OF ADMISSION: 10/15/2018 09:52 (CDT) PHONE: AGE: 87 N# [id number] GENDER: Male ENCOUNTER PHYSICIAN: Dr. Dejuan Villegas M.D. ADMISSION DIAGNOSIS: - Orthopaedic Disorders 08 - Unilateral Hip Fracture (08.11) Right Hip Intertrochanteric Fracture. EATING: EATING - STEP 1: Does the patient require the assistance of a person or device, or need extra time when eating? Yes. EATING - STEP 2: Does the patient require the assistance of a helper? Yes. EATING - STEP 3: Does the patient perform half or more of the eating tasks? Yes. EATING - STEP 4: Does the patient need only supervision, cuing, coaxing OR help to apply an orthosis OR help to cut fo od, open containers, pour liquids, or butter bread? Yes. EATING - SCORE: 5-SUP GROOMING: Activity did not occur on this shift GROOMING - SCORE: 0-UNK BATHING: Activity did not occur on this shift BATHING - SCORE: 0-UNK DRESSING - UPPER BODY: Activity did not occur on this shift ARTICLES SCORE Total number of steps: 0 DRESSING - UPPER BODY - SCORE: 0-UNK DRESSING - LOWER BODY: Activity did not occur on this shift ARTICLES SCORE Total number of steps: 0 DRESSING - LOWER BODY - SCORE: 0-UNK TOILETING: TOILETING - STEP 1: Does the patient require the assistance of a person or device, or need extra time with toileting? Yes . TOILETING - STEP 2: Does the patient require the assistance of a helper? Yes. TOILETING - STEP 3: How much assistance does the patient require from the helper? Hands-on assistance from the helper TOILETING - STEP 4: Of the 3 tasks: 1) Adjusting clothing prior to use, 2) Cleansing of perineal area, 3) Adjusting clot james after use; How many tasks does the patient perform WITHOUT assistance of the helper? Two tasks TOILETING - SCORE: 3-MOD BLADDER MANAGEMENT: BLADDER MANAGEMENT - STEP 1: Does the patient control the bladder completely and intentionally without equipment or devices or med ications, and is always continent? No. BLADDER MANAGEMENT - STEP 2: Does the patient require the assistance of a helper? No, patient requires and independently uses an a ssistive device, such as a urinal, bedpan, bedside commode, catheter, absorbent pad, or collecting de vice BLADDER MANAGEMENT - SCORE: 6-SHREE BOWEL MANAGEMENT: Activity did not occur on this shift BOWEL MANAGEMENT - SCORE: 7-IND TRANSFERS: BED, CHAIR, WHEELCHAIR: TRANSFERS: BED, CHAIR, WHEELCHAIR - STEP 1: Does the patient require assistance of a person or device, or need extra time with bed, chair, or whe elchair transfers? Yes. TRANSFERS: BED, CHAIR, WHEELCHAIR - STEP 2: Does the patient require the assistance of a helper? Yes. TRANSFERS: BED, CHAIR, WHEELCHAIR - STEP 3: How much assistance does the patient require from the helper? Lifting of the legs TRANSFERS: BED, CHAIR, WHEELCHAIR - STEP 4: How many legs does the patient require the helper to lift? one leg TRANSFERS: BED, CHAIR, WHEELCHAIR - SCORE: 4-MIN TRANSFERS: TOILET: TRANSFERS: TOILET - STEP 1: Does the patient require the assistance of a person or device, or need extra time with toilet transfe rs? Yes. TRANSFERS: TOILET - STEP 2: Does the patient require the assistance of a helper? Yes. TRANSFERS: TOILET - STEP 3: How much assistance does the patient require from the helper? Patient performs half or more of the tr ansferring tasks TRANSFERS: TOILET - STEP 4: Does the patient need only incidental help such as contact guard or steadying during toilet transfer? Yes. TRANSFERS: TOILET - SCORE: 4-MIN TRANSFERS: SHOWER: Activity did not occur on this shift TRANSFERS: SHOWER - SCORE: 0-UNK TRANSFERS: TUB: Activity did not occur on this shift TRANSFERS: TUB - SCORE: 0-UNK LOCOMOTION: WALK: Activity did not occur on this shift LOCOMOTION: WALK - SCORE: 0-UNK LOCOMOTION: WHEELCHAIR: Activity did not occur on this shift LOCOMOTION: WHEELCHAIR - SCORE: 0-UNK COMPREHENSION: COMPREHENSION: TYPE: Both COMPREHENSION - STEP 1: Does the patient require help from a person or device, or need extra time to understand complex and a bstract ideas (such as current events, finances, discharge planning, medical issues, relationships, e tc)? No. COMPREHENSION - STEP 2: Does the patient need extra time, require an assistive device (such as glasses for visual comprehensi on or a hearing aid for auditory comprehension) or does s/he have mild difficulty understanding compl ex and abstract information? Yes. COMPREHENSION - SCORE: 6-SHREE EXPRESSION EXPRESSION: TYPE: Both EXPRESSION - STEP 1: Does the patient require help from a person or device, or need extra time expressing complex and abst ract ideas (such as current events, finances, discharge planning, medical issues, relationships, etc) ? No. EXPRESSION - STEP 2: Does the patient need extra time, require an assistive device (such as augmentive communication syste m or a communication board), OR does s/he have mild difficulty expressing complex and abstract ideas (including mild dysarthria or mild word-find problems)? Yes. EXPRESSION - SCORE: 6-SHREE SOCIAL INTERACTION: SOCIAL INTERACTION - STEP 1: Does the patient require a helper to interact with others in social and therapeutic situations? No. SOCIAL INTERACTION - STEP 2: Does the patient need extra time in social situations, OR does s/he interact with staff, other patien ts, and family members ONLY in structured environments, OR does s/he require medication for social in teraction? Yes, patient needs extra time SOCIAL INTERACTION - SCORE: 6-SHREE PROBLEM SOLVING: PROBLEM SOLVING - STEP 1: Does the patient need help from a person or device, or need extra time to solve complex problems such as managing a checking account or confronting interpersonal problems? No. PROBLEM SOLVING - STEP 2: Does the patient require extra time to make decisions or solve problems, OR does s/he have slight dif ficulty reading, initiating, or self-correcting in unfamiliar situations? Yes, patient needs extra ti me. PROBLEM SOLVING - SCORE: 6-SHREE MEMORY: MEMORY - STEP 1: Does the patient need help from a person or device, or need extra time to remember frequently encount ered people, daily routines, and executing requests? No. MEMORY - STEP 2: Does the patient have slight difficulty recognizing frequently encountered people, daily routines, or executing requests without the need for repetition or using self-initiated or environmental cues to remember? Yes. MEMORY - SCORE: 6-SHREE SIGNATURE PANEL: The following modified sections: Eating - Score, Grooming - Score, Bathing - Score, Dressing - Upper Body - Score, Dressing - Lower Body - Score, Toileting - Score, Bladder Management - Score, Bowel Man agement - Score, Transfers: Bed, Chair, Wheelchair - Score, Transfers: Toilet - Score, Transfers: Christina wer - Score, Transfers: Tub - Score, Locomotion: Walk - Score, Locomotion: Wheelchair - Score, Compre hension - Score, Expression - Score, Social Interaction - Score, Problem Solving - Score, Memory - Sc ore were [electronically] signed by Keyshawn Joseph on FriOct 22 2018 14:50:42 GMT-0500 (Central Daylight Time)
[2018-10-22] MEDS: ATORVASTATIN 40 MG TAB PO SCH (20:57)
[2018-10-22] MEDS: DIAZEPAM 2 MG TABLET PO PRN (20:58)
[2018-10-22] MEDS: DOCUSATE NA/SENNA CONC 1 TAB PO SCH (20:58)
[2018-10-22] MEDS: LIDOCAINE 5% PATCH TOP SCH (20:59)
[2018-10-22] MEDS: PROMOD 30 ML DOSE PO SCH (20:59)
--- NOTE | 2018-10-23 00:56 | FAST ---
SHIFT START DATE/TIME: 10/22/2018 19:00 (CDT) SHIFT END DATE/TIME: 10/23/2018 07:00 (CDT) NAME JILLIAN JARQUIN DATE OF : 1930 DATE OF ADMISSION: 10/15/2018 09:52 (CDT) PHONE: AGE: 87 N# [id number] GENDER: Male ENCOUNTER PHYSICIAN: Dr. Dejuan Villegas M.D. ADMISSION DIAGNOSIS: - Orthopaedic Disorders 08 - Unilateral Hip Fracture (08.11) Right Hip Intertrochanteric Fracture. EATING: Activity did not occur on this shift EATING - SCORE: 0-UNK GROOMING: Activity did not occur on this shift GROOMING - SCORE: 0-UNK BATHING: Activity did not occur on this shift BATHING - SCORE: 0-UNK DRESSING - UPPER BODY: Patient is not dressing in public clothing ARTICLES SCORE Total number of steps: 0 DRESSING - UPPER BODY - SCORE: 0-UNK DRESSING - LOWER BODY: Patient is not dressing in public clothing ARTICLES SCORE Total number of steps: 0 DRESSING - LOWER BODY - SCORE: 0-UNK TOILETING: TOILETING - STEP 1: Does the patient require the assistance of a person or device, or need extra time with toileting? Yes . TOILETING - STEP 2: Does the patient require the assistance of a helper? Yes. TOILETING - STEP 3: How much assistance does the patient require from the helper? Only supervision TOILETING - SCORE: 5-SUP BLADDER MANAGEMENT: BLADDER MANAGEMENT - STEP 1: Does the patient control the bladder completely and intentionally without equipment or devices or med ications, and is always continent? No. BLADDER MANAGEMENT - STEP 2: Does the patient require the assistance of a helper? Yes. BLADDER MANAGEMENT - STEP 3: How much assistance does the patient require from the helper? Only set-up of equipment - such as plac ing it within reach of the patient or emptying a device - to maintain either satisfactory voiding pat tern or managing an external device, such as an absorbent pad, ileal device, or catheter BLADDER MANAGEMENT - SCORE: 5-SUP BOWEL MANAGEMENT: BOWEL MANAGEMENT - STEP 1: Does the patient control bowels completely and intentionally without equipment devices or medications AND is always continent? No. BOWEL MANAGEMENT - STEP 2: Does the patient require the assistance of a helper? No, patient requires medication for control such as stool softeners, suppositories, laxatives, enemas, or OTC medications BOWEL MANAGEMENT - SCORE: 6-SHREE TRANSFERS: BED, CHAIR, WHEELCHAIR: Activity did not occur on this shift TRANSFERS: BED, CHAIR, WHEELCHAIR - SCORE: 0-UNK TRANSFERS: TOILET: Activity did not occur on this shift TRANSFERS: TOILET - SCORE: 0-UNK TRANSFERS: SHOWER: Activity did not occur on this shift TRANSFERS: SHOWER - SCORE: 0-UNK TRANSFERS: TUB: Activity did not occur on this shift TRANSFERS: TUB - SCORE: 0-UNK LOCOMOTION: WALK: Activity did not occur on this shift LOCOMOTION: WALK - SCORE: 0-UNK LOCOMOTION: WHEELCHAIR: Activity did not occur on this shift LOCOMOTION: WHEELCHAIR - SCORE: 0-UNK COMPREHENSION: COMPREHENSION: TYPE: Both COMPREHENSION - STEP 1: Does the patient require help from a person or device, or need extra time to understand complex and a bstract ideas (such as current events, finances, discharge planning, medical issues, relationships, e tc)? Yes. COMPREHENSION - STEP 2: Does the patient require help to understand questions or statements about basic needs or ideas (such as hunger, thirst, sleep, safety, daily schedule, room location, or discomfort) half or more of the t shira? No. COMPREHENSION - STEP 3: How often does the patient need help to understand directions and conversation about basic needs? 10% - 24% of the time COMPREHENSION - SCORE: 4-MIN EXPRESSION EXPRESSION: TYPE: Both EXPRESSION - STEP 1: Does the patient require help from a person or device, or need extra time expressing complex and abst ract ideas (such as current events, finances, discharge planning, medical issues, relationships, etc) ? No. EXPRESSION - STEP 2: Does the patient need extra time, require an assistive device (such as augmentive communication syste m or a communication board), OR does s/he have mild difficulty expressing complex and abstract ideas (including mild dysarthria or mild word-find problems)? Yes. EXPRESSION - SCORE: 6-SHREE SOCIAL INTERACTION: SOCIAL INTERACTION - STEP 1: Does the patient require a helper to interact with others in social and therapeutic situations? No. SOCIAL INTERACTION - STEP 2: Does the patient need extra time in social situations, OR does s/he interact with staff, other patien ts, and family members ONLY in structured environments, OR does s/he require medication for social in teraction? Yes, patient needs extra time SOCIAL INTERACTION - SCORE: 6-SHREE PROBLEM SOLVING: PROBLEM SOLVING - STEP 1: Does the patient need help from a person or device, or need extra time to solve complex problems such as managing a checking account or confronting interpersonal problems? Yes. PROBLEM SOLVING - STEP 2: Does the patient solve basic routine problems half or more of the time? Yes. PROBLEM SOLVING - STEP 3: How often does the patient need help to solve basic routine problems? 10%-24% of the time PROBLEM SOLVING - SCORE: 4-MIN MEMORY: MEMORY - STEP 1: Does the patient need help from a person or device, or need extra time to remember frequently encount ered people, daily routines, and executing requests? No. MEMORY - STEP 2: Does the patient have slight difficulty recognizing frequently encountered people, daily routines, or executing requests without the need for repetition or using self-initiated or environmental cues to remember? Yes. MEMORY - SCORE: 6-SHREE SIGNATURE PANEL: The following modified sections: Eating - Score, Grooming - Score, Dressing - Upper Body - Score, Micky ssing - Lower Body - Score, Toileting - Score, Bladder Management - Score, Bowel Management - Score, Transfers: Bed, Chair, Wheelchair - Score, Transfers: Toilet - Score, Transfers: Shower - Score, Lazar sfers: Tub - Score, Locomotion: Walk - Score, Locomotion: Wheelchair - Score, Comprehension - Score, Expression - Score, Social Interaction - Score, Problem Solving - Score, Memory - Score were [electro nically] signed by Ramandeep Shirley CNA on FriOct 23 2018 00:54:25 GMT-0500 (Central Daylight Time)
--- NOTE | 2018-10-23 01:19 | PN ---
Date of Progress Note: 10/22/2018 Subjective: Patient was seen this morning for followup. No new complaints, problems reported by pat camila except having constipation problem and has not responded to milk of magnesia as he usually does. Denies any abdominal pain, nausea, vomiting. Objective: Vital signs: Reviewed. HEENT: Unremarkable. Lungs: Clear to auscultation. Cardiac: Heart sounds normal. Abdomen: Soft. Bowel sounds normal. No guarding, rigidity, tenderness, or distention. Extremities: No leg edema. Impression: 1.Constipation. 2.Debility. 3.Generalized weakness. 4.Right hip fracture. 5.Coronary artery disease. 6.Carotid artery stenosis. Plan: We did obtain copy of stress test, echocardiogram, carotid Doppler results from his cardiologi st, results reviewed. We will continue current medications. Start the patient on Senokot-S 2 tablet s by mouth twice a day. I will see him tomorrow for followup. RUI/JACQUELYN Voice ID: [id number] Report ID: [id number]
[2018-10-23] MEDS: TRAMADOL HCL 50 MG TAB PO PRN (07:30)
[2018-10-23] MEDS: PANTOPRAZOLE 40MG TABLET PO SCH (07:30)
[2018-10-23] MEDS: PROMOD 30 ML DOSE PO SCH ×3 (08:00→21:19)
[2018-10-23] MEDS: SOTALOL HCL 80 MG TAB PO SCH ×2 (09:13→21:19)
[2018-10-23] MEDS: DOCUSATE NA/SENNA CONC 1 TAB PO SCH ×2 (09:13→21:18)
[2018-10-23] MEDS: ALLOPURINOL 300 MG TAB PO SCH (09:13)
[2018-10-23] MEDS: GABAPENTIN 400 MG CAP PO SCH ×3 (09:13→21:18)
[2018-10-23] MEDS: LISINOPRIL 5 MG TAB PO SCH ×2 (09:14→21:18)
[2018-10-23] MEDS: RIVAROXABAN 10 MG TABLET PO SCH (09:15)
[2018-10-23] MEDS: DRISDOL (VITAMIN D=ERGOCALCIFEROL) 50000 UNIT CAP PO SCH (09:16)
--- NOTE | 2018-10-23 09:55 | P.RH.PN ---
Estimated Length of Stay: 13 Expected Discharge Date: 10/27/18 Discharge Disposition Plan: Home Family Support: Yes Assisted Goal: Mobility, Transfers, Self Care Vital Signs: Last Vital Signs Temp 98 F 10/22/18 20:00 Pulse 55 10/23/18 09:14 Resp 16 10/23/18 07:30 BP 129/61 10/23/18 09:14 Pulse Ox 97 10/23/18 07:30 Laboratory: Laboratory Last Values WBC 5.0 K/uL (4.3-10.9) D 10/22/18 06:16 RBC 3.38 M/uL (4.33-5.43) L 10/22/18 06:16 Hgb 9.9 g/dL (13.6-17.9) L 10/22/18 06:16 Hct 30.2 % (39.6-49.0) L 10/22/18 06:16 MCV 89.3 fL (80-100) 10/22/18 06:16 MCH 29.4 pg (27.0-35.0) 10/22/18 06:16 MCHC 33.0 g/dL (32.0-36.0) 10/22/18 06:16 RDW 16.8 % (12.1-15.2) H 10/22/18 06:16 Plt Count 376 K/uL (152-406) 10/22/18 06:16 MPV 8.6 fL (7.6-11.3) D 10/22/18 06:16 Neutrophils % 60.9 % (41.7-73.7) 10/22/18 06:16 Lymphocytes % 23.1 % (15.3-44.8) 10/22/18 06:16 Monocytes % 10.6 % (3.3-12.3) 10/22/18 06:16 Eosinophils % 4.6 % (0-4.4) H 10/22/18 06:16 Basophils % 0.8 % (0-1.3) 10/22/18 06:16 Absolute Neutrophils 3.0 K/uL (1.8-8.0) 10/22/18 06:16 Absolute Lymphocytes 1.2 K/uL (0.7-4.9) 10/22/18 06:16 Absolute Monocytes 0.5 K/uL (0.1-1.3) 10/22/18 06:16 Absolute Eosinophils 0.2 K/uL (0-0.5) 10/22/18 06:16 Absolute Basophils 0.0 K/uL (0-0.5) 10/22/18 06:16 Sodium 142 mmol/L (136-145) 10/22/18 06:16 Potassium 4.8 mmol/L (3.5-5.1) 10/22/18 06:16 Chloride 109 mmol/L (98-107) H 10/22/18 06:16 Carbon Dioxide 29 mmol/L (21-32) 10/22/18 06:16 BUN 19 mg/dL (7-18) H 10/22/18 06:16 Creatinine 0.84 mg/dL (0.55-1.3) 10/22/18 06:16 Estimated GFR 86 mL/min (=/>90) L 10/22/18 06:16 Glucose 87 mg/dL (74-106) 10/22/18 06:16 Calcium 8.3 mg/dL (8.5-10.1) L 10/22/18 06:16 Magnesium 2.5 mg/dL (1.8-2.4) H 10/22/18 06:16 Total Bilirubin 0.2 mg/dL (0.2-1.0) 10/16/18 06:03 AST 21 U/L (15-37) 10/16/18 06:03 ALT 17 U/L (12-78) 10/16/18 06:03 Alkaline Phosphatase 135 U/L (45-117) H 10/16/18 06:03 Serum Total Protein 6.2 g/dL (6.4-8.2) L 10/16/18 06:03 Albumin 1.9 g/dL (3.4-5.0) L 10/22/18 06:16 Globulin 4.2 g/dL (2.3-3.5) H 10/16/18 06:03 Albumin/Globulin Ratio 0.5 (1.1-1.8) L 10/16/18 06:03 Prealbumin 7.7 mg/dL (20-40) L 10/22/18 06:16 TSH 2.620 uIU/mL (0.360-3.740) 10/16/18 06:03 Urine Color Yellow 10/15/18 16:45 Urine Appearance Clear 10/15/18 16:45 Urine pH 6.0 (5.0-7.0) 10/15/18 16:45 Ur Specific [place] 1.020 (1.005-1.030) 10/15/18 16:45 Urine Ketones Negative (NEG) 10/15/18 16:45 Urine Blood Negative (NEG) 10/15/18 16:45 Urine Nitrite Negative (NEG) 10/15/18 16:45 Urine Bilirubin Negative (NEG) 10/15/18 16:45 Urine Urobilinogen 1.0 mg/dL (0.2-1.0) 10/15/18 16:45 Ur Leukocyte Esterase Negative (NEG) 10/15/18 16:45 Urine RBC <5 /HPF (NONE SEEN) 10/15/18 16:45 Urine WBC <5 /HPF (<5) 10/15/18 16:45 Ur Squamous Epith Cells <5 /HPF (NONE SEEN) 10/15/18 16:45 Urine Bacteria <20 /HPF (NONE SEEN) 10/15/18 16:45 Urine Culture Reflexed Not needed 10/15/18 16:45 Urine Glucose Negative (NEG) 10/15/18 16:45 Urine Total Protein Negative (NEG) 10/15/18 16:45 Weight: 196 lb 9.6 oz Wound Present: Yes Closed Surgical Incision Present: No Negative Pressure Wound Therapy Present: No Physician Update: Ambulated 200' with standby assistance. Hgb is 9.9. Ferrous sulfate will be given daily. Prealbumin decreased to 7.7. Will be placed on high protein supplement. Pain Issues: Tylenol 500mg Q6H PRN PO. Gabapentin 400mg TID. Lidoderm patch 5 % Daily. Tramadol 50mg Q6H PRN PO Functional Improvement: Patient continues to progress toward short-term and long -term goals, and is improving w/ technique of transfers and gait tx., and improving distance traveled. Functional Improvement Occupational Therapy: Pt can benifit with further therapy to address pt's overall weakness in the UB/LB. Cont to eduacte pt on safety awareness and energy conservation techniques by educating on using A/E as need for bathing and for LB dressing. Cont to increase pt's endurance and activity tolerance for adls and Iadls. Cont to address pt static standing tolerance for adl's and Iadls and for safe functional transfers. 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 Please see the Rehabilitation Signature page for all necessary signatures.
--- NOTE | 2018-10-23 16:52 | FAST ---
SHIFT START DATE/TIME: 10/23/2018 07:00 (CDT) SHIFT END DATE/TIME: 10/23/2018 19:00 (CDT) NAME JILLIAN JARQUIN DATE OF : 1930 DATE OF ADMISSION: 10/15/2018 09:52 (CDT) PHONE: AGE: 87 N# [id number] GENDER: Male ENCOUNTER PHYSICIAN: Dr. Dejuan Villegas M.D. ADMISSION DIAGNOSIS: - Orthopaedic Disorders 08 - Unilateral Hip Fracture (08.11) Right Hip Intertrochanteric Fracture. EATING: EATING - STEP 1: Does the patient require the assistance of a person or device, or need extra time when eating? No. EATING - SCORE: 7-IND GROOMING: GROOMING - STEP 1: Does the patient require the assistance of a person or device, or need extra time when grooming? No. GROOMING - SCORE: 7-IND BATHING: Activity did not occur on this shift BATHING - SCORE: 0-UNK DRESSING - UPPER BODY: Activity did not occur on this shift ARTICLES SCORE Total number of steps: 0 DRESSING - UPPER BODY - SCORE: 0-UNK DRESSING - LOWER BODY: Activity did not occur on this shift ARTICLES SCORE Total number of steps: 0 DRESSING - LOWER BODY - SCORE: 0-UNK TOILETING: TOILETING - STEP 1: Does the patient require the assistance of a person or device, or need extra time with toileting? Yes . TOILETING - STEP 2: Does the patient require the assistance of a helper? Yes. TOILETING - STEP 3: How much assistance does the patient require from the helper? Hands-on assistance from the helper TOILETING - STEP 4: Of the 3 tasks: 1) Adjusting clothing prior to use, 2) Cleansing of perineal area, 3) Adjusting clot james after use; How many tasks does the patient perform WITHOUT assistance of the helper? Three tasks with steadying assistance from the helper TOILETING - SCORE: 4-MIN BLADDER MANAGEMENT: BLADDER MANAGEMENT - STEP 1: Does the patient control the bladder completely and intentionally without equipment or devices or med ications, and is always continent? Yes. BLADDER MANAGEMENT - SCORE: 7-IND BLADDER MANAGEMENT - FREQUENCY OF ACCIDENTS: BLADDER MANAGEMENT(FA) - STEP 1: How many accidents has the patient had during the current shift? 0 BOWEL MANAGEMENT: BOWEL MANAGEMENT - STEP 1: Does the patient control bowels completely and intentionally without equipment devices or medications AND is always continent? Yes. BOWEL MANAGEMENT - SCORE: 7-IND BOWEL MANAGEMENT - FREQUENCY OF ACCIDENTS: BOWEL MANAGEMENT(FA) - STEP 1: How many accidents has the patient had during the current shift? 0 TRANSFERS: BED, CHAIR, WHEELCHAIR: TRANSFERS: BED, CHAIR, WHEELCHAIR - STEP 1: Does the patient require assistance of a person or device, or need extra time with bed, chair, or whe elchair transfers? Yes. TRANSFERS: BED, CHAIR, WHEELCHAIR - STEP 2: Does the patient require the assistance of a helper? Yes. TRANSFERS: BED, CHAIR, WHEELCHAIR - STEP 3: How much assistance does the patient require from the helper? Steadying/guiding assistance TRANSFERS: BED, CHAIR, WHEELCHAIR - SCORE: 4-MIN TRANSFERS: TOILET: TRANSFERS: TOILET - STEP 1: Does the patient require the assistance of a person or device, or need extra time with toilet transfe rs? Yes. TRANSFERS: TOILET - STEP 2: Does the patient require the assistance of a helper? Yes. TRANSFERS: TOILET - STEP 3: How much assistance does the patient require from the helper? Patient performs half or more of the tr ansferring tasks TRANSFERS: TOILET - STEP 4: Does the patient need only incidental help such as contact guard or steadying during toilet transfer? Yes. TRANSFERS: TOILET - SCORE: 4-MIN TRANSFERS: SHOWER: Activity did not occur on this shift TRANSFERS: SHOWER - SCORE: 0-UNK TRANSFERS: TUB: Activity did not occur on this shift TRANSFERS: TUB - SCORE: 0-UNK LOCOMOTION: WALK: Activity did not occur on this shift LOCOMOTION: WALK - SCORE: 0-UNK LOCOMOTION: WHEELCHAIR: Activity did not occur on this shift LOCOMOTION: WHEELCHAIR - SCORE: 0-UNK COMPREHENSION: COMPREHENSION - SCORE: 0-UNK EXPRESSION EXPRESSION - SCORE: 0-UNK SOCIAL INTERACTION: SOCIAL INTERACTION - SCORE: 0-UNK PROBLEM SOLVING: PROBLEM SOLVING - SCORE: 0-UNK MEMORY: MEMORY - SCORE: 0-UNK SIGNATURE PANEL: The following modified sections: Eating - Score, Grooming - Score, Bathing - Score, Dressing - Upper Body - Score, Dressing - Lower Body - Score, Toileting - Score, Bladder Management - Score, Bowel Man agement - Score, Transfers: Bed, Chair, Wheelchair - Score, Transfers: Toilet - Score, Transfers: Christina wer - Score, Transfers: Tub - Score, Locomotion: Walk - Score, Locomotion: Wheelchair - Score, Compre hension - Score, Expression - Score, Social Interaction - Score, Problem Solving - Score, Memory - Sc ore were [electronically] signed by Kathryn Enamorado CNA on FriOct 23 2018 16:51:25 [facility]-0500 (Centra l Daylight Time)
[2018-10-23] MEDS: ENSURE HIGH PROTEIN 237 ML CAN PO SCH ×2 (20:00→21:20)
[2018-10-23] MEDS: ATORVASTATIN 40 MG TAB PO SCH (21:18)
[2018-10-23] MEDS: DIAZEPAM 2 MG TABLET PO PRN (21:18)
[2018-10-23] MEDS: LIDOCAINE 5% PATCH TOP SCH (21:18)
--- NOTE | 2018-10-23 23:01 | PN ---
Date of Progress Note: 10/23/2018 Subjective: Patient was seen this morning for followup. No new complaints or problems reported by the patient, lying in bed, not in distress. Objective: Vital Signs: Reviewed. HEENT: Unremarkable. Lungs: Clear to auscultation. Heart: Sounds normal. Abdomen: Soft. Bowel sounds normal. No guarding, rigidity, tenderness, or distention. Extremities: No leg edema. Impression: 1. Debility. 2. Generalized weakness. 3. Hypertension. 4. Coronary artery disease. 5. Constipation. Plan: We will continue current medication including current stool softener/ laxative. Continue physical therapy under guidance of Dr. Villegas. I will see him tomorrow for followup. Yesterday's CBC and chemistry results reviewed. RUI/MODL Voice ID: [id number] Report ID: [id number] MTDD
--- NOTE | 2018-10-24 02:34 | FAST ---
SHIFT START DATE/TIME: 10/23/2018 19:00 (CDT) SHIFT END DATE/TIME: 10/24/2018 07:00 (CDT) NAME JILLIAN JARQUIN DATE OF : 1930 DATE OF ADMISSION: 10/15/2018 09:52 (CDT) PHONE: AGE: 87 N# [id number] GENDER: Male ENCOUNTER PHYSICIAN: Dr. Dejuan Villegas M.D. ADMISSION DIAGNOSIS: - Orthopaedic Disorders 08 - Unilateral Hip Fracture (08.11) Right Hip Intertrochanteric Fracture. EATING: Activity did not occur on this shift EATING - SCORE: 0-UNK GROOMING: Activity did not occur on this shift GROOMING - SCORE: 0-UNK BATHING: Activity did not occur on this shift BATHING - SCORE: 0-UNK DRESSING - UPPER BODY: Patient is not dressing in public clothing ARTICLES SCORE Total number of steps: 0 DRESSING - UPPER BODY - SCORE: 0-UNK DRESSING - LOWER BODY: Patient is not dressing in public clothing ARTICLES SCORE Total number of steps: 0 DRESSING - LOWER BODY - SCORE: 0-UNK TOILETING: TOILETING - STEP 1: Does the patient require the assistance of a person or device, or need extra time with toileting? Yes . TOILETING - STEP 2: Does the patient require the assistance of a helper? Yes. TOILETING - STEP 3: How much assistance does the patient require from the helper? Only supervision TOILETING - SCORE: 5-SUP BLADDER MANAGEMENT: BLADDER MANAGEMENT - STEP 1: Does the patient control the bladder completely and intentionally without equipment or devices or med ications, and is always continent? No. BLADDER MANAGEMENT - STEP 2: Does the patient require the assistance of a helper? Yes. BLADDER MANAGEMENT - STEP 3: How much assistance does the patient require from the helper? Only set-up of equipment - such as plac ing it within reach of the patient or emptying a device - to maintain either satisfactory voiding pat tern or managing an external device, such as an absorbent pad, ileal device, or catheter BLADDER MANAGEMENT - SCORE: 5-SUP BOWEL MANAGEMENT: Activity did not occur on this shift BOWEL MANAGEMENT - SCORE: 7-IND TRANSFERS: BED, CHAIR, WHEELCHAIR: TRANSFERS: BED, CHAIR, WHEELCHAIR - STEP 1: Does the patient require assistance of a person or device, or need extra time with bed, chair, or whe elchair transfers? Yes. TRANSFERS: BED, CHAIR, WHEELCHAIR - STEP 2: Does the patient require the assistance of a helper? Yes. TRANSFERS: BED, CHAIR, WHEELCHAIR - STEP 3: How much assistance does the patient require from the helper? Lifting of the legs TRANSFERS: BED, CHAIR, WHEELCHAIR - STEP 4: How many legs does the patient require the helper to lift? both legs TRANSFERS: BED, CHAIR, WHEELCHAIR - SCORE: 3-MOD TRANSFERS: TOILET: Activity did not occur on this shift TRANSFERS: TOILET - SCORE: 0-UNK TRANSFERS: SHOWER: Activity did not occur on this shift TRANSFERS: SHOWER - SCORE: 0-UNK TRANSFERS: TUB: Activity did not occur on this shift TRANSFERS: TUB - SCORE: 0-UNK LOCOMOTION: WALK: Activity did not occur on this shift LOCOMOTION: WALK - SCORE: 0-UNK LOCOMOTION: WHEELCHAIR: Activity did not occur on this shift LOCOMOTION: WHEELCHAIR - SCORE: 0-UNK COMPREHENSION: COMPREHENSION: TYPE: Both COMPREHENSION - STEP 1: Does the patient require help from a person or device, or need extra time to understand complex and a bstract ideas (such as current events, finances, discharge planning, medical issues, relationships, e tc)? No. COMPREHENSION - STEP 2: Does the patient need extra time, require an assistive device (such as glasses for visual comprehensi on or a hearing aid for auditory comprehension) or does s/he have mild difficulty understanding compl ex and abstract information? Yes. COMPREHENSION - SCORE: 6-SHREE EXPRESSION EXPRESSION: TYPE: Both EXPRESSION - STEP 1: Does the patient require help from a person or device, or need extra time expressing complex and abst ract ideas (such as current events, finances, discharge planning, medical issues, relationships, etc) ? No. EXPRESSION - STEP 2: Does the patient need extra time, require an assistive device (such as augmentive communication syste m or a communication board), OR does s/he have mild difficulty expressing complex and abstract ideas (including mild dysarthria or mild word-find problems)? Yes. EXPRESSION - SCORE: 6-SHREE SOCIAL INTERACTION: SOCIAL INTERACTION - STEP 1: Does the patient require a helper to interact with others in social and therapeutic situations? No. SOCIAL INTERACTION - STEP 2: Does the patient need extra time in social situations, OR does s/he interact with staff, other patien ts, and family members ONLY in structured environments, OR does s/he require medication for social in teraction? Yes, patient needs extra time SOCIAL INTERACTION - SCORE: 6-SHREE PROBLEM SOLVING: PROBLEM SOLVING - STEP 1: Does the patient need help from a person or device, or need extra time to solve complex problems such as managing a checking account or confronting interpersonal problems? No. PROBLEM SOLVING - STEP 2: Does the patient require extra time to make decisions or solve problems, OR does s/he have slight dif ficulty reading, initiating, or self-correcting in unfamiliar situations? Yes, patient needs extra ti me. PROBLEM SOLVING - SCORE: 6-SHREE MEMORY: MEMORY - STEP 1: Does the patient need help from a person or device, or need extra time to remember frequently encount ered people, daily routines, and executing requests? No. MEMORY - STEP 2: Does the patient have slight difficulty recognizing frequently encountered people, daily routines, or executing requests without the need for repetition or using self-initiated or environmental cues to remember? Yes. MEMORY - SCORE: 6-SHREE
[2018-10-24] MEDS: PANTOPRAZOLE 40MG TABLET PO SCH (07:16)
[2018-10-24] MEDS: TRAMADOL HCL 50 MG TAB PO PRN (07:16)
[2018-10-24] MEDS ORDERED: FERROUS SULFATE 325 MG TAB PO SCH (08:00)
[2018-10-24] MEDS: ENSURE HIGH PROTEIN 237 ML CAN PO SCH ×2 (08:00→20:36)
[2018-10-24] MEDS: PROMOD 30 ML DOSE PO SCH ×2 (08:00→20:00)
[2018-10-24] MEDS: LISINOPRIL 5 MG TAB PO SCH ×2 (08:28→20:00)
[2018-10-24] MEDS: SOTALOL HCL 80 MG TAB PO SCH ×2 (08:28→20:34)
[2018-10-24] MEDS: GABAPENTIN 400 MG CAP PO SCH ×3 (08:30→20:35)
[2018-10-24] MEDS: FE SULF/FA/VIT B COMP & C TAB PO SCH (08:30)
[2018-10-24] MEDS: DOCUSATE NA/SENNA CONC 1 TAB PO SCH ×2 (08:30→20:36)
[2018-10-24] MEDS: ALLOPURINOL 300 MG TAB PO SCH (08:31)
[2018-10-24] MEDS: RIVAROXABAN 10 MG TABLET PO SCH (08:31)
[2018-10-24] MEDS: FERROUS SULFATE 325 MG TAB PO SCH (08:32)
--- NOTE | 2018-10-24 14:56 | PN ---
Date of Progress Note: 10/24/2018 Subjective: Patient was seen this morning for followup. He was lying in bed, not in any distress. Had a bowel movement this morning, but had to strain at the time of having bowel movement. No nausea , no vomiting. Objective: Vital Signs: Reviewed. HEENT: Unremarkable. Lungs: Clear to auscultation. Heart: Sounds normal. Abdomen: Soft. Bowel sounds normal. No guarding, rigidity, tenderness, or distention. Extremities: No leg edema. Impression: 1.Osteoarthritis, multiple sites. 2.Carotid artery stenosis. 3.Coronary artery disease. 4.Constipation. Plan: Patient's knee pain has improved significantly with Voltaren gel. Right now, he is on DVT pro phylaxis with Xarelto. Upon discharge, we will discontinue Xarelto and patient will restart his aspi rin 81 mg daily and Celebrex 1 capsules daily as he was taking prior to this admission. We will cont inue Senokot-S per order and today he will use his dose of milk of magnesia per order. Other medicat ions will be continued. I will see him tomorrow for followup. RUI/MODL Voice ID: [id number] Report ID: [id number]
[2018-10-24] MEDS: MAGNESIUM HYDROXIDE 8% 30 ML PO PRN (15:17)
[2018-10-24] MEDS: ATORVASTATIN 40 MG TAB PO SCH (20:35)
[2018-10-24] MEDS: LIDOCAINE 5% PATCH TOP SCH (20:41)
--- NOTE | 2018-10-25 00:43 | FAST ---
SHIFT START DATE/TIME: 10/24/2018 19:00 (CDT) SHIFT END DATE/TIME: 10/25/2018 07:00 (CDT) NAME JILLIAN JARQUIN DATE OF : 1930 DATE OF ADMISSION: 10/15/2018 09:52 (CDT) PHONE: AGE: 87 N# [id number] GENDER: Male ENCOUNTER PHYSICIAN: Dr. Dejuan Villegas M.D. ADMISSION DIAGNOSIS: - Orthopaedic Disorders 08 - Unilateral Hip Fracture (08.11) Right Hip Intertrochanteric Fracture. EATING: Activity did not occur on this shift EATING - SCORE: 0-UNK GROOMING: Activity did not occur on this shift GROOMING - SCORE: 0-UNK BATHING: Activity did not occur on this shift BATHING - SCORE: 0-UNK DRESSING - UPPER BODY: Patient is not dressing in public clothing ARTICLES SCORE Total number of steps: 0 DRESSING - UPPER BODY - SCORE: 0-UNK DRESSING - LOWER BODY: Patient is not dressing in public clothing ARTICLES SCORE Total number of steps: 0 DRESSING - LOWER BODY - SCORE: 0-UNK TOILETING: TOILETING - STEP 1: Does the patient require the assistance of a person or device, or need extra time with toileting? Yes . TOILETING - STEP 2: Does the patient require the assistance of a helper? Yes. TOILETING - STEP 3: How much assistance does the patient require from the helper? Hands-on assistance from the helper TOILETING - STEP 4: Of the 3 tasks: 1) Adjusting clothing prior to use, 2) Cleansing of perineal area, 3) Adjusting clot james after use; How many tasks does the patient perform WITHOUT assistance of the helper? Three tasks with steadying assistance from the helper TOILETING - SCORE: 4-MIN BLADDER MANAGEMENT: BLADDER MANAGEMENT - STEP 1: Does the patient control the bladder completely and intentionally without equipment or devices or med ications, and is always continent? No. BLADDER MANAGEMENT - STEP 2: Does the patient require the assistance of a helper? Yes. BLADDER MANAGEMENT - STEP 3: How much assistance does the patient require from the helper? Only supervision, stand-by, cuing, or c oaxing BLADDER MANAGEMENT - SCORE: 5-SUP BOWEL MANAGEMENT: BOWEL MANAGEMENT - STEP 1: Does the patient control bowels completely and intentionally without equipment devices or medications AND is always continent? No. BOWEL MANAGEMENT - STEP 2: Does the patient require the assistance of a helper? No, patient requires medication for control such as stool softeners, suppositories, laxatives, enemas, or OTC medications BOWEL MANAGEMENT - SCORE: 6-SHREE TRANSFERS: BED, CHAIR, WHEELCHAIR: TRANSFERS: BED, CHAIR, WHEELCHAIR - STEP 1: Does the patient require assistance of a person or device, or need extra time with bed, chair, or whe elchair transfers? Yes. TRANSFERS: BED, CHAIR, WHEELCHAIR - STEP 2: Does the patient require the assistance of a helper? Yes. TRANSFERS: BED, CHAIR, WHEELCHAIR - STEP 3: How much assistance does the patient require from the helper? Steadying/guiding assistance TRANSFERS: BED, CHAIR, WHEELCHAIR - SCORE: 4-MIN TRANSFERS: TOILET: Activity did not occur on this shift TRANSFERS: TOILET - SCORE: 0-UNK TRANSFERS: SHOWER: Activity did not occur on this shift TRANSFERS: SHOWER - SCORE: 0-UNK TRANSFERS: TUB: Activity did not occur on this shift TRANSFERS: TUB - SCORE: 0-UNK LOCOMOTION: WALK: Activity did not occur on this shift LOCOMOTION: WALK - SCORE: 0-UNK LOCOMOTION: WHEELCHAIR: Activity did not occur on this shift LOCOMOTION: WHEELCHAIR - SCORE: 0-UNK COMPREHENSION: COMPREHENSION: TYPE: Both COMPREHENSION - STEP 1: Does the patient require help from a person or device, or need extra time to understand complex and a bstract ideas (such as current events, finances, discharge planning, medical issues, relationships, e tc)? No. COMPREHENSION - STEP 2: Does the patient need extra time, require an assistive device (such as glasses for visual comprehensi on or a hearing aid for auditory comprehension) or does s/he have mild difficulty understanding compl ex and abstract information? Yes. COMPREHENSION - SCORE: 6-SHREE EXPRESSION EXPRESSION: TYPE: Both EXPRESSION - STEP 1: Does the patient require help from a person or device, or need extra time expressing complex and abst ract ideas (such as current events, finances, discharge planning, medical issues, relationships, etc) ? No. EXPRESSION - STEP 2: Does the patient need extra time, require an assistive device (such as augmentive communication syste m or a communication board), OR does s/he have mild difficulty expressing complex and abstract ideas (including mild dysarthria or mild word-find problems)? Yes. EXPRESSION - SCORE: 6-SHREE SOCIAL INTERACTION: SOCIAL INTERACTION - STEP 1: Does the patient require a helper to interact with others in social and therapeutic situations? No. SOCIAL INTERACTION - STEP 2: Does the patient need extra time in social situations, OR does s/he interact with staff, other patien ts, and family members ONLY in structured environments, OR does s/he require medication for social in teraction? Yes, patient needs extra time SOCIAL INTERACTION - SCORE: 6-SHREE PROBLEM SOLVING: PROBLEM SOLVING - STEP 1: Does the patient need help from a person or device, or need extra time to solve complex problems such as managing a checking account or confronting interpersonal problems? Yes. PROBLEM SOLVING - STEP 2: Does the patient solve basic routine problems half or more of the time? Yes. PROBLEM SOLVING - STEP 3: How often does the patient need help to solve basic routine problems? Less than 10% of the time PROBLEM SOLVING - SCORE: 5-SUP MEMORY: MEMORY - STEP 1: Does the patient need help from a person or device, or need extra time to remember frequently encount ered people, daily routines, and executing requests? No. MEMORY - STEP 2: Does the patient have slight difficulty recognizing frequently encountered people, daily routines, or executing requests without the need for repetition or using self-initiated or environmental cues to remember? Yes. MEMORY - SCORE: 6-SHREE SIGNATURE PANEL: The following modified sections: Eating - Score, Grooming - Score, Dressing - Upper Body - Score, Micky ssing - Lower Body - Score, Toileting - Score, Bladder Management - Score, Bowel Management - Score, Transfers: Bed, Chair, Wheelchair - Score, Transfers: Toilet - Score, Transfers: Shower - Score, Lazar sfers: Tub - Score, Locomotion: Walk - Score, Locomotion: Wheelchair - Score, Comprehension - Score, Expression - Score, Social Interaction - Score, Problem Solving - Score, Memory - Score were [electro nically] signed by Ramandeep Shirley CNA on FriOct 25 2018 00:41:40 GMT-0500 (Central Daylight Time)
[2018-10-25] MEDS: PANTOPRAZOLE 40MG TABLET PO SCH (06:51)
[2018-10-25] MEDS: SOTALOL HCL 80 MG TAB PO SCH ×2 (08:15→20:15)
[2018-10-25] MEDS: GABAPENTIN 400 MG CAP PO SCH ×3 (08:15→20:16)
[2018-10-25] MEDS: DOCUSATE NA/SENNA CONC 1 TAB PO SCH ×2 (08:15→20:24)
[2018-10-25] MEDS: FE SULF/FA/VIT B COMP & C TAB PO SCH (08:15)
[2018-10-25] MEDS: RIVAROXABAN 10 MG TABLET PO SCH (08:16)
[2018-10-25] MEDS: LISINOPRIL 5 MG TAB PO SCH ×2 (08:16→20:16)
[2018-10-25] MEDS: ALLOPURINOL 300 MG TAB PO SCH (08:16)
[2018-10-25] MEDS: FERROUS SULFATE 325 MG TAB PO SCH (08:16)
[2018-10-25] MEDS: ENSURE HIGH PROTEIN 237 ML CAN PO SCH ×2 (14:07→20:00)
[2018-10-25] MEDS: PROMOD 30 ML DOSE PO SCH ×2 (14:07→20:17)
--- NOTE | 2018-10-25 14:23 | PN ---
Date of Progress Note: 10/25/2018 Subjective: Patient was seen this morning for followup. No new complaints or problems reported by bucky bernabe. Sitting in wheelchair, not in any distress. Had a good bowel movement. Denies any abdomina l pain, nausea, or vomiting. Objective: Vital Signs: Reviewed. HEENT: Unremarkable. Lungs: Clear to auscultation. Heart: Sounds normal. Abdomen: Soft. Bowel sounds normal. No guarding, rigidity, tenderness, or distention. Extremities: No leg edema. Impression: 1.Constipation. 2.Hypertension. 3.Coronary artery disease. 4.Carotid artery stenosis. Plan: We will continue current medications. Continue physical therapy under guidance of Dr. Marysol jauregui. I will see him tomorrow for followup. Possible discharge to go home day after tomorrow. RUI/MODL Voice ID: [id number] Report ID: [id number]
[2018-10-25] MEDS: ATORVASTATIN 40 MG TAB PO SCH (20:16)
[2018-10-25] MEDS: LIDOCAINE 5% PATCH TOP SCH (20:24)
[2018-10-25] MEDS: DIAZEPAM 2 MG TABLET PO PRN (20:43)
--- NOTE | 2018-10-26 02:24 | FAST ---
SHIFT START DATE/TIME: 10/25/2018 19:00 (CDT) SHIFT END DATE/TIME: 10/26/2018 07:00 (CDT) NAME JILLIAN JARQUIN DATE OF : 1930 DATE OF ADMISSION: 10/15/2018 09:52 (CDT) PHONE: AGE: 87 N# [id number] GENDER: Male ENCOUNTER PHYSICIAN: Dr. Dejuan Villegas M.D. ADMISSION DIAGNOSIS: - Orthopaedic Disorders 08 - Unilateral Hip Fracture (08.11) Right Hip Intertrochanteric Fracture. EATING: Activity did not occur on this shift EATING - SCORE: 0-UNK GROOMING: Activity did not occur on this shift GROOMING - SCORE: 0-UNK BATHING: Activity did not occur on this shift BATHING - SCORE: 0-UNK DRESSING - UPPER BODY: Patient is not dressing in public clothing ARTICLES SCORE Total number of steps: 0 DRESSING - UPPER BODY - SCORE: 0-UNK DRESSING - LOWER BODY: Patient is not dressing in public clothing ARTICLES SCORE Total number of steps: 0 DRESSING - LOWER BODY - SCORE: 0-UNK TOILETING: TOILETING - STEP 1: Does the patient require the assistance of a person or device, or need extra time with toileting? Yes . TOILETING - STEP 2: Does the patient require the assistance of a helper? Yes. TOILETING - STEP 3: How much assistance does the patient require from the helper? Only supervision TOILETING - SCORE: 5-SUP BLADDER MANAGEMENT: BLADDER MANAGEMENT - STEP 1: Does the patient control the bladder completely and intentionally without equipment or devices or med ications, and is always continent? No. BLADDER MANAGEMENT - STEP 2: Does the patient require the assistance of a helper? Yes. BLADDER MANAGEMENT - STEP 3: How much assistance does the patient require from the helper? Only supervision, stand-by, cuing, or c oaxing BLADDER MANAGEMENT - SCORE: 5-SUP BOWEL MANAGEMENT: BOWEL MANAGEMENT - STEP 1: Does the patient control bowels completely and intentionally without equipment devices or medications AND is always continent? No. BOWEL MANAGEMENT - STEP 2: Does the patient require the assistance of a helper? No, patient requires medication for control such as stool softeners, suppositories, laxatives, enemas, or OTC medications BOWEL MANAGEMENT - SCORE: 6-SHREE TRANSFERS: BED, CHAIR, WHEELCHAIR: Activity did not occur on this shift TRANSFERS: BED, CHAIR, WHEELCHAIR - SCORE: 0-UNK TRANSFERS: TOILET: Activity did not occur on this shift TRANSFERS: TOILET - SCORE: 0-UNK TRANSFERS: SHOWER: Activity did not occur on this shift TRANSFERS: SHOWER - SCORE: 0-UNK TRANSFERS: TUB: Activity did not occur on this shift TRANSFERS: TUB - SCORE: 0-UNK LOCOMOTION: WALK: Activity did not occur on this shift LOCOMOTION: WALK - SCORE: 0-UNK LOCOMOTION: WHEELCHAIR: Activity did not occur on this shift LOCOMOTION: WHEELCHAIR - SCORE: 0-UNK COMPREHENSION: COMPREHENSION: TYPE: Both COMPREHENSION - STEP 1: Does the patient require help from a person or device, or need extra time to understand complex and a bstract ideas (such as current events, finances, discharge planning, medical issues, relationships, e tc)? No. COMPREHENSION - STEP 2: Does the patient need extra time, require an assistive device (such as glasses for visual comprehensi on or a hearing aid for auditory comprehension) or does s/he have mild difficulty understanding compl ex and abstract information? Yes. COMPREHENSION - SCORE: 6-SHREE EXPRESSION EXPRESSION: TYPE: Both EXPRESSION - STEP 1: Does the patient require help from a person or device, or need extra time expressing complex and abst ract ideas (such as current events, finances, discharge planning, medical issues, relationships, etc) ? No. EXPRESSION - STEP 2: Does the patient need extra time, require an assistive device (such as augmentive communication syste m or a communication board), OR does s/he have mild difficulty expressing complex and abstract ideas (including mild dysarthria or mild word-find problems)? Yes. EXPRESSION - SCORE: 6-SHREE SOCIAL INTERACTION: SOCIAL INTERACTION - STEP 1: Does the patient require a helper to interact with others in social and therapeutic situations? No. SOCIAL INTERACTION - STEP 2: Does the patient need extra time in social situations, OR does s/he interact with staff, other patien ts, and family members ONLY in structured environments, OR does s/he require medication for social in teraction? Yes, patient needs extra time SOCIAL INTERACTION - SCORE: 6-SHREE PROBLEM SOLVING: PROBLEM SOLVING - STEP 1: Does the patient need help from a person or device, or need extra time to solve complex problems such as managing a checking account or confronting interpersonal problems? Yes. PROBLEM SOLVING - STEP 2: Does the patient solve basic routine problems half or more of the time? Yes. PROBLEM SOLVING - STEP 3: How often does the patient need help to solve basic routine problems? 10%-24% of the time PROBLEM SOLVING - SCORE: 4-MIN MEMORY: MEMORY - STEP 1: Does the patient need help from a person or device, or need extra time to remember frequently encount ered people, daily routines, and executing requests? No. MEMORY - STEP 2: Does the patient have slight difficulty recognizing frequently encountered people, daily routines, or executing requests without the need for repetition or using self-initiated or environmental cues to remember? Yes. MEMORY - SCORE: 6-SHREE SIGNATURE PANEL: The following modified sections: Eating - Score, Grooming - Score, Dressing - Upper Body - Score, Micky ssing - Lower Body - Score, Toileting - Score, Bladder Management - Score, Bowel Management - Score, Transfers: Bed, Chair, Wheelchair - Score, Transfers: Toilet - Score, Transfers: Shower - Score, Lazar sfers: Tub - Score, Locomotion: Walk - Score, Locomotion: Wheelchair - Score, Comprehension - Score, Expression - Score, Social Interaction - Score, Problem Solving - Score, Memory - Score were [electro nically] signed by Ramandeep Shirley CNA on FriOct 26 2018 02:24:23 GMT-0500 (Central Daylight Time)
[2018-10-26] MEDS: PANTOPRAZOLE 40MG TABLET PO SCH (07:18)
[2018-10-26] MEDS: FE SULF/FA/VIT B COMP & C TAB PO SCH (07:18)
[2018-10-26] MEDS: DOCUSATE NA/SENNA CONC 1 TAB PO SCH ×2 (07:19→19:58)
[2018-10-26] MEDS: ALLOPURINOL 300 MG TAB PO SCH (07:19)
[2018-10-26] MEDS: GABAPENTIN 400 MG CAP PO SCH ×3 (07:19→19:49)
[2018-10-26] MEDS: FERROUS SULFATE 325 MG TAB PO SCH (07:19)
[2018-10-26] MEDS: RIVAROXABAN 10 MG TABLET PO SCH (07:19)
[2018-10-26] MEDS: LISINOPRIL 5 MG TAB PO SCH ×2 (07:20→19:49)
[2018-10-26] MEDS: SOTALOL HCL 80 MG TAB PO SCH ×2 (07:20→19:49)
[2018-10-26] MEDS: TRAMADOL HCL 50 MG TAB PO PRN (07:20)
[2018-10-26] MEDS: PROMOD 30 ML DOSE PO SCH ×2 (07:21→19:57)
[2018-10-26] MEDS: ENSURE HIGH PROTEIN 237 ML CAN PO SCH ×2 (07:22→19:57)
--- NOTE | 2018-10-26 10:16 | PN ---
Date of Progress Note: 10/26/2018 Subjective: Patient was seen this morning for followup. No new complaints or problems reported by bucky bernabe. He was lying in bed, not in any distress. Denies any complaints this morning. Objective: Vital Signs: Reviewed. HEENT: Unremarkable. Lungs: Clear to auscultation. Heart: Heart sounds normal. Abdomen: Soft. Bowel sounds normal. No guarding, rigidity, tenderness, or distention. Extremities: No leg edema. Impression: 1.Hip fracture. 2.Constipation. 3.Hypertension. 4.Coronary artery disease. 5.Debility. Plan: We will continue current medications. Continue physical therapy under guidance of Dr. Marysol jauregui and continue current stool softener/laxative. I will see him tomorrow for followup. Possible disc harge to go home tomorrow. RUI/MODL Voice ID: [id number] Report ID: [id number]
--- NOTE | 2018-10-26 15:24 | FAST ---
SHIFT START DATE/TIME: 10/26/2018 07:00 (CDT) SHIFT END DATE/TIME: 10/26/2018 19:00 (CDT) NAME JILLIAN JARQUIN DATE OF : 1930 DATE OF ADMISSION: 10/15/2018 09:52 (CDT) PHONE: AGE: 87 N# [id number] GENDER: Male ENCOUNTER PHYSICIAN: Dr. Dejuan Villegas M.D. ADMISSION DIAGNOSIS: - Orthopaedic Disorders 08 - Unilateral Hip Fracture (08.11) Right Hip Intertrochanteric Fracture. EATING: EATING - STEP 1: Does the patient require the assistance of a person or device, or need extra time when eating? Yes. EATING - STEP 2: Does the patient require the assistance of a helper? No, patient only requires an assistive device, O R s/he takes more than reasonable time to eat, OR there is a safety concern, OR s/he requires modifie d food consistency EATING - SCORE: 6-SHREE GROOMING: Activity did not occur on this shift GROOMING - SCORE: 0-UNK BATHING: Activity did not occur on this shift BATHING - SCORE: 0-UNK DRESSING - UPPER BODY: Activity did not occur on this shift ARTICLES SCORE Total number of steps: 0 DRESSING - UPPER BODY - SCORE: 0-UNK DRESSING - LOWER BODY: Activity did not occur on this shift ARTICLES SCORE Total number of steps: 0 DRESSING - LOWER BODY - SCORE: 0-UNK TOILETING: TOILETING - STEP 1: Does the patient require the assistance of a person or device, or need extra time with toileting? Yes . TOILETING - STEP 2: Does the patient require the assistance of a helper? Yes. TOILETING - STEP 3: How much assistance does the patient require from the helper? Hands-on assistance from the helper TOILETING - STEP 4: Of the 3 tasks: 1) Adjusting clothing prior to use, 2) Cleansing of perineal area, 3) Adjusting clot james after use; How many tasks does the patient perform WITHOUT assistance of the helper? Two tasks TOILETING - SCORE: 3-MOD BLADDER MANAGEMENT: BLADDER MANAGEMENT - STEP 1: Does the patient control the bladder completely and intentionally without equipment or devices or med ications, and is always continent? Yes. BLADDER MANAGEMENT - SCORE: 7-IND BOWEL MANAGEMENT: Activity did not occur on this shift BOWEL MANAGEMENT - SCORE: 7-IND TRANSFERS: BED, CHAIR, WHEELCHAIR: TRANSFERS: BED, CHAIR, WHEELCHAIR - STEP 1: Does the patient require assistance of a person or device, or need extra time with bed, chair, or whe elchair transfers? Yes. TRANSFERS: BED, CHAIR, WHEELCHAIR - STEP 2: Does the patient require the assistance of a helper? Yes. TRANSFERS: BED, CHAIR, WHEELCHAIR - STEP 3: How much assistance does the patient require from the helper? Steadying/guiding assistance TRANSFERS: BED, CHAIR, WHEELCHAIR - SCORE: 4-MIN TRANSFERS: TOILET: TRANSFERS: TOILET - STEP 1: Does the patient require the assistance of a person or device, or need extra time with toilet transfe rs? Yes. TRANSFERS: TOILET - STEP 2: Does the patient require the assistance of a helper? Yes. TRANSFERS: TOILET - STEP 3: How much assistance does the patient require from the helper? Patient performs half or more of the tr ansferring tasks TRANSFERS: TOILET - STEP 4: Does the patient need only incidental help such as contact guard or steadying during toilet transfer? No. Patient needs more than incidental help TRANSFERS: TOILET - SCORE: 3-MOD TRANSFERS: SHOWER: Activity did not occur on this shift TRANSFERS: SHOWER - SCORE: 0-UNK TRANSFERS: TUB: Activity did not occur on this shift TRANSFERS: TUB - SCORE: 0-UNK LOCOMOTION: WALK: Activity did not occur on this shift LOCOMOTION: WALK - SCORE: 0-UNK LOCOMOTION: WHEELCHAIR: Activity did not occur on this shift LOCOMOTION: WHEELCHAIR - SCORE: 0-UNK COMPREHENSION: COMPREHENSION: TYPE: Both COMPREHENSION - STEP 1: Does the patient require help from a person or device, or need extra time to understand complex and a bstract ideas (such as current events, finances, discharge planning, medical issues, relationships, e tc)? No. COMPREHENSION - STEP 2: Does the patient need extra time, require an assistive device (such as glasses for visual comprehensi on or a hearing aid for auditory comprehension) or does s/he have mild difficulty understanding compl ex and abstract information? Yes. COMPREHENSION - SCORE: 6-SHREE EXPRESSION EXPRESSION: TYPE: Both EXPRESSION - STEP 1: Does the patient require help from a person or device, or need extra time expressing complex and abst ract ideas (such as current events, finances, discharge planning, medical issues, relationships, etc) ? No. EXPRESSION - STEP 2: Does the patient need extra time, require an assistive device (such as augmentive communication syste m or a communication board), OR does s/he have mild difficulty expressing complex and abstract ideas (including mild dysarthria or mild word-find problems)? Yes. EXPRESSION - SCORE: 6-SHREE SOCIAL INTERACTION: SOCIAL INTERACTION - STEP 1: Does the patient require a helper to interact with others in social and therapeutic situations? No. SOCIAL INTERACTION - STEP 2: Does the patient need extra time in social situations, OR does s/he interact with staff, other patien ts, and family members ONLY in structured environments, OR does s/he require medication for social in teraction? Yes, patient needs extra time SOCIAL INTERACTION - SCORE: 6-SHREE PROBLEM SOLVING: PROBLEM SOLVING - STEP 1: Does the patient need help from a person or device, or need extra time to solve complex problems such as managing a checking account or confronting interpersonal problems? No. PROBLEM SOLVING - STEP 2: Does the patient require extra time to make decisions or solve problems, OR does s/he have slight dif ficulty reading, initiating, or self-correcting in unfamiliar situations? Yes, patient needs extra ti me. PROBLEM SOLVING - SCORE: 6-SHREE MEMORY: MEMORY - STEP 1: Does the patient need help from a person or device, or need extra time to remember frequently encount ered people, daily routines, and executing requests? No. MEMORY - STEP 2: Does the patient have slight difficulty recognizing frequently encountered people, daily routines, or executing requests without the need for repetition or using self-initiated or environmental cues to remember? Yes. MEMORY - SCORE: 6-SHREE SIGNATURE PANEL: The following modified sections: Eating - Score, Grooming - Score, Bathing - Score, Dressing - Upper Body - Score, Dressing - Lower Body - Score, Toileting - Score, Bladder Management - Score, Bowel Man agement - Score, Transfers: Bed, Chair, Wheelchair - Score, Transfers: Toilet - Score, Transfers: Christina wer - Score, Transfers: Tub - Score, Locomotion: Walk - Score, Locomotion: Wheelchair - Score, Compre hension - Score, Expression - Score, Social Interaction - Score, Problem Solving - Score, Memory - Sc ore were [electronically] signed by Keyshawn Joseph on FriOct 26 2018 15:22:58 GMT-0500 (Central Daylight Time)
--- NOTE | 2018-10-26 18:33 | R.PN ---
ENCOUNTER DATE AND TIME: 10/26/2018 18:29 (CDT) NAME JILLIAN JARQUIN DATE OF : 1930 DATE OF ADMISSION: 10/15/2018 09:52 (CDT) Right Hip Intertrochanteric FractureCHIEF COMPLAINT: Right hip fracture SUBJECTIVE: Pt denied any depression. Pt denied any Shortness of Breath. Ambulated 760' with standby assistance using a rolling walker. Up and down 5 steps with bilateral bran d rails and minimum assistance. VITAL SIGNS Temperature: 97.6 F SBP/DBP: 175/72 Pulse: 62 Resp: 14 MEDICATION ALLERGIES: No Known Drug Allergies (NKDA) ENVIRONMENTAL ALLERGIES: None Known - Substance Allergies None Known - Other Allergies None Known NURSING: - Shower allowing shower - Skin care per protocol PRECAUTIONS: - Posterior Hip Precaution No adduction across midline No external rotation No hip flexion >90 degrees No internal rotation No wheel chair propulsion - Weight Bearing Precaution WBAT right LE ACTIVITIES OOB only with supervision THERAPIES: - Dietary and Nutrition Adequate Nutrition. Nutritional Education. Nutritional Supplements. PHYSICAL EXAM - Gen Alert and awake Lying in bed No apparent distress Oriented to: person, time, and place - Skin No skin breakdown. No abnormalities - Eyes No abnormalities - Neck No abnormalities - CVS RRR - Chest No abnormalities - Abd Soft - GI Non distended Deferred - No abnormalities - Ext No significant edema. - MSK 4/5 weakness in both lower extremities. - Neuro No focal deficits. - Psych No abnormalities ASSESSMENT: Pt. is a 87 yo Right-handed white male.On 09/08/2018 he was admitted to [facility] with di agnosis Right Hip Intertrochanteric Fracture.His impairment category is Orthopaedic Disorders 08 - U nilateral Hip Fracture (08.11).Pre-morbidly, Pt. was independent/mod-I in Self-Care, Sphincter Contro l, Transfers Control, Locomotion, Communication, and Social Cognition; and he had good Sphincter Cont rol.Currently, he has deficits of Self-Care, Transfers Control, Locomotion, Endurance, Balance, and S afety Awareness.Pt. is now referred to [facility] for acute in-patient rehabil itation in order to maximize patient's functional independence in activities of daily living, strengt h, ROM, and mobility.- Rehab Goal Patient has realistic goal of being discharged at assistance level 6-Nini to reside at Home with Fam lizzy/Relatives. MDM/PLAN: - Physical Therapy Decreased range of motion - to improve, our physical therapists will perform initial evaluation of p t's status upon admission and devise an individualized program for increasing patient's Range of Rashad on. Gait dysfunction - to improve, our physical therapists will perform initial evaluation of pt's statu s upon admission and devise an individualized program for Gait Training, and Wheel Chair mobility Inability to transfer - to improve, our physical therapists will perform initial evaluation of pt's status upon admission and devise an individualized program for Bed mobility Need for home safety evaluation - to improve, our physical therapists will perform initial evaluatio n of pt's status upon admission and devise an individualized program for Home Evaluation Need in caregiver upon discharge - to improve, our physical therapists will perform initial evaluati on of pt's status upon admission and devise an individualized program for Caregiver Training New precaution - to improve, our physical therapists will perform initial evaluation of pt's status upon admission and devise an individualized program for Patient precaution education Poor balance - to improve, our physical therapists will perform initial evaluation of pt's status up on admission and devise an individualized program for Balance Training Poor endurance - to improve, our physical therapists will perform initial evaluation of pt's status upon admission and devise an individualized program for Endurance Training Weakness - to improve, our physical therapists will perform initial evaluation of pt's status upon a dmission and devise an individualized program for Aquatic Therapy, Neuromuscular Reeducation, and Str engthening Achieving independence - to improve, our physical therapists will perform initial evaluation of pt's status upon admission and devise an individualized program for Community Reintegration Activities - Occupational Therapy ADL deficits - to improve, our occupation therapists will perform initial evaluation of pt's status upon admission and devise an individualized program for Bathing, Bed mobility, Community Reintegratio n, Cooking, Dressing, Eating, Fine Motor Skills, Grooming, Homemaking, Kitchen Mobility, Laundry, Pat ient Education, Safety Awareness, Splinting - Positioning, Transfers(Toilet, Tub, Shower), and Wheel Chair Management Need for wild animal caretaker - to improve, our occupation therapists will perform initial evaluation of pt's status upon admission and devise an individualized program for Caregiver Training Weakness - to improve, our occupation therapists will perform initial evaluation of pt's status upon admission and devise an individualized program for Aquatic Therapy, Balance, Endurance, UE ROM, and UE strengthening - Other See attached MAR (Medication Administration Record) - Anterior Hip Precaution No abduction No active extension No adduction across midline No external rotation No hip flexion >90 degrees No internal rotation - Diet - Liquid Texture Continue Regular - Tube Feed Continue N/A - Diet Type Continue Regular - Posterior Hip Precaution No adduction across midline No external rotation No hip flexion >90 degrees No internal rotation No wheel chair propulsion - Weight Bearing Precaution WBAT right LE - Skin care per protocol - Diet - Solid Texture Continue Regular - Shower allowing shower FUNCTIONAL STATUS: UPDATED AT WEEKLY TEAM CONFERENCE - Bladder Same accident frequency: 7-Ind - No accidents in the past 7 days - Bowel Same accident frequency: 7-Ind - No accidents in the past 7 days - Walking Same score based on distance walked: 0(N/A) - Wheelchair Same score based on distance traveled: 0(N/A) FUNCTIONAL STATUS: - Self-Care A. Eating sup B. Grooming sup C. Bathing sup D. Dressing - Upper Brady E. Dressing - Lower modA F. Toileting modA - Sphincter Control G: Bladder control Ind H: Bowel control Ind - Transfers Control I. Bed/Chair/Wheelchair modA J. Toilet modA K. Tub/Shower ADNO - Locomotion L. Walk/Wheelchair (C) maxA L. Walk/Wheelchair (W) maxA M. Stairs ADNO - Communication N. Comprehension (B) Ind O. Expression (B) Ind - Social Cognition P. Social Interaction Ind Q. Problem Solving Ind R. Memory Ind - Endurance Fair - Balance Fair - Safety Awareness Fair CURRENT FUNC. DEFICITS: Self-Care, Transfers Control, Locomotion, Endurance, Balance, and Safety Awareness SIGNATURE PANEL: (CDT)
--- NOTE | 2018-10-26 18:34 | R.PN ---
ENCOUNTER DATE AND TIME: 10/21/2018 23:35 (CDT) NAME JILLIAN JARQUIN DATE OF : 1930 DATE OF ADMISSION: 10/15/2018 09:52 (CDT) Right Hip Intertrochanteric FractureCHIEF COMPLAINT: Right hip fracture SUBJECTIVE: Pt denied any depression. Pt denied any Shortness of Breath. Posterior and anterior propelled wheelchair 250' each with physical therapist in tow. VITAL SIGNS Temperature: 98.5 F SBP/DBP: 125/61 Pulse: 62 Resp: 14 MEDICATION ALLERGIES: No Known Drug Allergies (NKDA) ENVIRONMENTAL ALLERGIES: None Known - Substance Allergies None Known - Other Allergies None Known NURSING: - Shower allowing shower - Skin care per protocol PRECAUTIONS: - Posterior Hip Precaution No adduction across midline No external rotation No hip flexion >90 degrees No internal rotation No wheel chair propulsion - Weight Bearing Precaution WBAT right LE ACTIVITIES OOB only with supervision THERAPIES: - Dietary and Nutrition Adequate Nutrition. Nutritional Education. Nutritional Supplements. PHYSICAL EXAM - Gen Alert and awake Lying in bed No apparent distress Oriented to: person, time, and place - Skin No skin breakdown. No abnormalities - Eyes No abnormalities - Neck No abnormalities - CVS RRR - Chest No abnormalities - Abd Soft - GI Non distended Deferred - No abnormalities - Ext No significant edema. - MSK 4/5 weakness in both lower extremities. - Neuro No focal deficits. - Psych No abnormalities ASSESSMENT: Pt. is a 87 yo Right-handed white male.On 09/08/2018 he was admitted to [facility] with di agnosis Right Hip Intertrochanteric Fracture.His impairment category is Orthopaedic Disorders 08 - U nilateral Hip Fracture (08.11).Pre-morbidly, Pt. was independent/mod-I in Self-Care, Sphincter Contro l, Transfers Control, Locomotion, Communication, and Social Cognition; and he had good Sphincter Cont rol.Currently, he has deficits of Self-Care, Transfers Control, Locomotion, Endurance, Balance, and S afety Awareness.Pt. is now referred to [facility] for acute in-patient rehabil itation in order to maximize patient's functional independence in activities of daily living, strengt h, ROM, and mobility.- Rehab Goal Patient has realistic goal of being discharged at assistance level 6-Nini to reside at Home with Fam lizzy/Relatives. MDM/PLAN: - Physical Therapy Decreased range of motion - to improve, our physical therapists will perform initial evaluation of p t's status upon admission and devise an individualized program for increasing patient's Range of Rashad on. Gait dysfunction - to improve, our physical therapists will perform initial evaluation of pt's statu s upon admission and devise an individualized program for Gait Training, and Wheel Chair mobility Inability to transfer - to improve, our physical therapists will perform initial evaluation of pt's status upon admission and devise an individualized program for Bed mobility Need for home safety evaluation - to improve, our physical therapists will perform initial evaluatio n of pt's status upon admission and devise an individualized program for Home Evaluation Need in caregiver upon discharge - to improve, our physical therapists will perform initial evaluati on of pt's status upon admission and devise an individualized program for Caregiver Training New precaution - to improve, our physical therapists will perform initial evaluation of pt's status upon admission and devise an individualized program for Patient precaution education Poor balance - to improve, our physical therapists will perform initial evaluation of pt's status up on admission and devise an individualized program for Balance Training Poor endurance - to improve, our physical therapists will perform initial evaluation of pt's status upon admission and devise an individualized program for Endurance Training Weakness - to improve, our physical therapists will perform initial evaluation of pt's status upon a dmission and devise an individualized program for Aquatic Therapy, Neuromuscular Reeducation, and Str engthening Achieving independence - to improve, our physical therapists will perform initial evaluation of pt's status upon admission and devise an individualized program for Community Reintegration Activities - Occupational Therapy ADL deficits - to improve, our occupation therapists will perform initial evaluation of pt's status upon admission and devise an individualized program for Bathing, Bed mobility, Community Reintegratio n, Cooking, Dressing, Eating, Fine Motor Skills, Grooming, Homemaking, Kitchen Mobility, Laundry, Pat ient Education, Safety Awareness, Splinting - Positioning, Transfers(Toilet, Tub, Shower), and Wheel Chair Management Need for vehicle care specialist - to improve, our occupation therapists will perform initial evaluation of pt's status upon admission and devise an individualized program for Caregiver Training Weakness - to improve, our occupation therapists will perform initial evaluation of pt's status upon admission and devise an individualized program for Aquatic Therapy, Balance, Endurance, UE ROM, and UE strengthening - Other See attached MAR (Medication Administration Record) - Anterior Hip Precaution No abduction No active extension No adduction across midline No external rotation No hip flexion >90 degrees No internal rotation - Diet - Liquid Texture Continue Regular - Tube Feed Continue N/A - Diet Type Continue Regular - Posterior Hip Precaution No adduction across midline No external rotation No hip flexion >90 degrees No internal rotation No wheel chair propulsion - Weight Bearing Precaution WBAT right LE - Skin care per protocol - Diet - Solid Texture Continue Regular - Shower allowing shower FUNCTIONAL STATUS: UPDATED AT WEEKLY TEAM CONFERENCE - Bladder Same accident frequency: 7-Ind - No accidents in the past 7 days - Bowel Same accident frequency: 7-Ind - No accidents in the past 7 days - Walking Same score based on distance walked: 0(N/A) - Wheelchair Same score based on distance traveled: 0(N/A) FUNCTIONAL STATUS: - Self-Care A. Eating sup B. Grooming sup C. Bathing sup D. Dressing - [place] E. Dressing - Lower modA F. Toileting modA - Sphincter Control G: Bladder control Ind H: Bowel control Ind - Transfers Control I. Bed/Chair/Wheelchair modA J. Toilet modA K. Tub/Shower ADNO - Locomotion L. Walk/Wheelchair (C) maxA L. Walk/Wheelchair (W) maxA M. Stairs ADNO - Communication N. Comprehension (B) Ind O. Expression (B) Ind - Social Cognition P. Social Interaction Ind Q. Problem Solving Ind R. Memory Ind - Endurance Fair - Balance Fair - Safety Awareness Fair CURRENT FUNC. DEFICITS: Self-Care, Transfers Control, Locomotion, Endurance, Balance, and Safety Awareness SIGNATURE PANEL: (CDT)
[2018-10-26] MEDS: ATORVASTATIN 40 MG TAB PO SCH (19:49)
[2018-10-26] MEDS: DIAZEPAM 2 MG TABLET PO PRN (19:54)
[2018-10-26] MEDS: LIDOCAINE 5% PATCH TOP SCH (19:57)
--- NOTE | 2018-10-27 02:28 | FAST ---
SHIFT START DATE/TIME: 10/26/2018 19:00 (CDT) SHIFT END DATE/TIME: 10/27/2018 07:00 (CDT) NAME JILLIAN JARQUIN DATE OF : 1930 DATE OF ADMISSION: 10/15/2018 09:52 (CDT) PHONE: AGE: 87 N# [id number] GENDER: Male ENCOUNTER PHYSICIAN: Dr. Dejuan Villegas M.D. ADMISSION DIAGNOSIS: - Orthopaedic Disorders 08 - Unilateral Hip Fracture (08.11) Right Hip Intertrochanteric Fracture. EATING: Activity did not occur on this shift EATING - SCORE: 0-UNK GROOMING: Oral care Wash, rinse, and dry face Wash, rinse, and dry hands GROOMING - STEP 1: Does the patient require the assistance of a person or device, or need extra time when grooming? Yes. GROOMING - STEP 2: Does the patient require the assistance of a helper? Yes. GROOMING - STEP 3: How much assistance does the patient require from the helper? Cuing, coaxing, instructions, or encour agement for completion of grooming GROOMING - SCORE: 5-SUP BATHING: Activity did not occur on this shift BATHING - SCORE: 0-UNK DRESSING - UPPER BODY: Patient is not dressing in public clothing ARTICLES SCORE Total number of steps: 0 DRESSING - UPPER BODY - SCORE: 0-UNK DRESSING - LOWER BODY: Patient is not dressing in public clothing ARTICLES SCORE Total number of steps: 0 DRESSING - LOWER BODY - SCORE: 0-UNK TOILETING: TOILETING - STEP 1: Does the patient require the assistance of a person or device, or need extra time with toileting? Yes . TOILETING - STEP 2: Does the patient require the assistance of a helper? Yes. TOILETING - STEP 3: How much assistance does the patient require from the helper? Only supervision TOILETING - SCORE: 5-SUP BLADDER MANAGEMENT: BLADDER MANAGEMENT - STEP 1: Does the patient control the bladder completely and intentionally without equipment or devices or med ications, and is always continent? No. BLADDER MANAGEMENT - STEP 2: Does the patient require the assistance of a helper? Yes. BLADDER MANAGEMENT - STEP 3: How much assistance does the patient require from the helper? Only set-up of equipment - such as plac ing it within reach of the patient or emptying a device - to maintain either satisfactory voiding pat tern or managing an external device, such as an absorbent pad, ileal device, or catheter BLADDER MANAGEMENT - SCORE: 5-SUP BOWEL MANAGEMENT: Activity did not occur on this shift BOWEL MANAGEMENT - SCORE: 7-IND TRANSFERS: BED, CHAIR, WHEELCHAIR: Activity did not occur on this shift TRANSFERS: BED, CHAIR, WHEELCHAIR - SCORE: 0-UNK TRANSFERS: TOILET: Activity did not occur on this shift TRANSFERS: TOILET - SCORE: 0-UNK TRANSFERS: SHOWER: Activity did not occur on this shift TRANSFERS: SHOWER - SCORE: 0-UNK TRANSFERS: TUB: Activity did not occur on this shift TRANSFERS: TUB - SCORE: 0-UNK LOCOMOTION: WALK: Activity did not occur on this shift LOCOMOTION: WALK - SCORE: 0-UNK LOCOMOTION: WHEELCHAIR: Activity did not occur on this shift LOCOMOTION: WHEELCHAIR - SCORE: 0-UNK COMPREHENSION: COMPREHENSION: TYPE: Both COMPREHENSION - STEP 1: Does the patient require help from a person or device, or need extra time to understand complex and a bstract ideas (such as current events, finances, discharge planning, medical issues, relationships, e tc)? No. COMPREHENSION - STEP 2: Does the patient need extra time, require an assistive device (such as glasses for visual comprehensi on or a hearing aid for auditory comprehension) or does s/he have mild difficulty understanding compl ex and abstract information? Yes. COMPREHENSION - SCORE: 6-SHREE EXPRESSION EXPRESSION: TYPE: Both EXPRESSION - STEP 1: Does the patient require help from a person or device, or need extra time expressing complex and abst ract ideas (such as current events, finances, discharge planning, medical issues, relationships, etc) ? No. EXPRESSION - STEP 2: Does the patient need extra time, require an assistive device (such as augmentive communication syste m or a communication board), OR does s/he have mild difficulty expressing complex and abstract ideas (including mild dysarthria or mild word-find problems)? Yes. EXPRESSION - SCORE: 6-SHREE SOCIAL INTERACTION: SOCIAL INTERACTION - STEP 1: Does the patient require a helper to interact with others in social and therapeutic situations? No. SOCIAL INTERACTION - STEP 2: Does the patient need extra time in social situations, OR does s/he interact with staff, other patien ts, and family members ONLY in structured environments, OR does s/he require medication for social in teraction? Yes, patient needs extra time SOCIAL INTERACTION - SCORE: 6-SHREE PROBLEM SOLVING: PROBLEM SOLVING - STEP 1: Does the patient need help from a person or device, or need extra time to solve complex problems such as managing a checking account or confronting interpersonal problems? No. PROBLEM SOLVING - STEP 2: Does the patient require extra time to make decisions or solve problems, OR does s/he have slight dif ficulty reading, initiating, or self-correcting in unfamiliar situations? Yes, patient needs extra ti me. PROBLEM SOLVING - SCORE: 6-SHREE MEMORY: MEMORY - STEP 1: Does the patient need help from a person or device, or need extra time to remember frequently encount ered people, daily routines, and executing requests? No. MEMORY - STEP 2: Does the patient have slight difficulty recognizing frequently encountered people, daily routines, or executing requests without the need for repetition or using self-initiated or environmental cues to remember? Yes. MEMORY - SCORE: 6-SHREE
[2018-10-27] MEDS: PANTOPRAZOLE 40MG TABLET PO SCH (06:57)
[2018-10-27] MEDS: TRAMADOL HCL 50 MG TAB PO PRN (06:57)
[2018-10-27] MEDS: PROMOD 30 ML DOSE PO SCH (08:00)
[2018-10-27] MEDS: ENSURE HIGH PROTEIN 237 ML CAN PO SCH (08:00)
[2018-10-27] MEDS: LISINOPRIL 5 MG TAB PO SCH (08:00)
[2018-10-27] MEDS: SOTALOL HCL 80 MG TAB PO SCH (08:01)
[2018-10-27] MEDS: FERROUS SULFATE 325 MG TAB PO SCH (08:02)
[2018-10-27] MEDS: FE SULF/FA/VIT B COMP & C TAB PO SCH (08:02)
[2018-10-27] MEDS: DOCUSATE NA/SENNA CONC 1 TAB PO SCH (08:02)
[2018-10-27] MEDS: ALLOPURINOL 300 MG TAB PO SCH (08:03)
[2018-10-27] MEDS: RIVAROXABAN 10 MG TABLET PO SCH (08:03)
[2018-10-27] MEDS: GABAPENTIN 400 MG CAP PO SCH (08:03)
[2018-10-27 08:04] VITALS: BP 131/61
[2018-10-27 08:10] VITALS: TEMP 97.5
--- NOTE | 2018-10-27 15:24 | FAST ---
ENCOUNTER DATE AND TIME: 10/27/2018 08:00 (CDT) NAME JILLIAN JARQUIN DATE OF : 1930 DATE OF ADMISSION: 10/15/2018 09:52 (CDT) PHONE: AGE: 87 SSN# [id number] GENDER: Male ENCOUNTER PHYSICIAN: Dr. Dejuan Villegas M.D. ADMISSION DIAGNOSIS: - Orthopaedic Disorders 08 - Unilateral Hip Fracture (.11) Right Hip Intertrochanteric Fracture. EATING: Activity did not occur on this shift EATING - SCORE: 0-UNK GROOMING: Activity did not occur on this shift GROOMING - SCORE: 0-UNK BATHING: Activity did not occur on this shift BATHING - SCORE: 0-UNK DRESSING - UPPER BODY: Activity did not occur on this shift Patient is not dressing in public clothing ARTICLES SCORE Total number of steps: 0 DRESSING - UPPER BODY - SCORE: 0-UNK DRESSING - LOWER BODY: Activity did not occur on this shift Patient is not dressing in public clothing ARTICLES SCORE Total number of steps: 0 DRESSING - LOWER BODY - SCORE: 0-UNK TOILETING: Activity did not occur on this shift TOILETING - SCORE: 0-UNK BLADDER MANAGEMENT: Activity did not occur on this shift BLADDER MANAGEMENT - SCORE: 7-IND BOWEL MANAGEMENT: Activity did not occur on this shift BOWEL MANAGEMENT - SCORE: 7-IND TRANSFERS: BED, CHAIR, WHEELCHAIR: TRANSFERS: BED, CHAIR, WHEELCHAIR - STEP 1: Does the patient require assistance of a person or device, or need extra time with bed, chair, or whe elchair transfers? Yes. TRANSFERS: BED, CHAIR, WHEELCHAIR - STEP 2: Does the patient require the assistance of a helper? No. Patient only requires an assistive device fo r bed, chair, wheelchair transfers such as a sliding board, grab bar, or brace, OR s/he takes more th an reasonable time, OR there is a safety concern when s/he performs the transfers TRANSFERS: BED, CHAIR, WHEELCHAIR - SCORE: 6-SHREE TRANSFERS: TOILET: Activity did not occur on this shift TRANSFERS: TOILET - SCORE: 0-UNK TRANSFERS: SHOWER: Activity did not occur on this shift TRANSFERS: SHOWER - SCORE: 0-UNK TRANSFERS: TUB: Activity did not occur on this shift TRANSFERS: TUB - SCORE: 0-UNK LOCOMOTION: WALK: LOCOMOTION: WALK - STEP 1: Does the patient need help from a person or device, or need extra time to walk 150 feet? Yes. LOCOMOTION: WALK - STEP 2: How much assistance does the patient require to walk a minimum of 150 feet? Only supervision, cuing, or coaxing LOCOMOTION: WALK - SCORE: 5-SUP LOCOMOTION: WHEELCHAIR: LOCOMOTION: WHEELCHAIR - STEP 1: Does the patient need help to go 150 feet in a wheelchair? Yes. LOCOMOTION: WHEELCHAIR - STEP 2: How much assistance does the patient need from the helper? Only supervision, cuing, or coaxing LOCOMOTION: WHEELCHAIR - SCORE: 5-SUP LOCOMOTION: STAIRS: LOCOMOTION: STAIRS - STEP 1: Does the patient need help to go up and down 12 to 14 stairs? Yes. LOCOMOTION: STAIRS - STEP 2: How much assistance does the patient need from the helper to go a minimum of 12 to 14 stairs? The pat ient goes less than 12 stairs, but at least 4 stairs LOCOMOTION: STAIRS - SCORE: 2-MAX COMPREHENSION: COMPREHENSION - SCORE: 0-UNK EXPRESSION EXPRESSION - SCORE: 0-UNK SOCIAL INTERACTION: SOCIAL INTERACTION - SCORE: 0-UNK PROBLEM SOLVING: PROBLEM SOLVING - SCORE: 0-UNK MEMORY: MEMORY - SCORE: 0-UNK SIGNATURE PANEL: The following modified sections: Transfers: Bed, Chair, Wheelchair - Score, Transfers: Toilet - Score , Locomotion: Walk - Score, Locomotion: Wheelchair - Score, Locomotion: Stairs - Score were [electron cordell] signed by Murphy Frost PTA on FriOct 27 2018 15:23:47 GMT-0500 (Central Daylight Time)
--- NOTE | 2018-10-27 15:27 | FAST ---
ENCOUNTER DATE AND TIME: 10/22/2018 08:00 (CDT) NAME JILLIAN JARQUIN DATE OF : 1930 DATE OF ADMISSION: 10/15/2018 09:52 (CDT) PHONE: AGE: 87 SSN# [id number] GENDER: Male ENCOUNTER PHYSICIAN: Dr. Dejuan Villegas M.D. ADMISSION DIAGNOSIS: - Orthopaedic Disorders 08 - Unilateral Hip Fracture (.) Right Hip Intertrochanteric Fracture. EATING: Activity did not occur on this shift EATING - SCORE: 0-UNK GROOMING: Activity did not occur on this shift GROOMING - SCORE: 0-UNK BATHING: Activity did not occur on this shift BATHING - SCORE: 0-UNK DRESSING - UPPER BODY: Activity did not occur on this shift Patient is not dressing in public clothing ARTICLES SCORE Total number of steps: 0 DRESSING - UPPER BODY - SCORE: 0-UNK DRESSING - LOWER BODY: Activity did not occur on this shift Patient is not dressing in public clothing ARTICLES SCORE Total number of steps: 0 DRESSING - LOWER BODY - SCORE: 0-UNK TOILETING: Activity did not occur on this shift TOILETING - SCORE: 0-UNK BLADDER MANAGEMENT: Activity did not occur on this shift BLADDER MANAGEMENT - SCORE: 7-IND BOWEL MANAGEMENT: Activity did not occur on this shift BOWEL MANAGEMENT - SCORE: 7-IND TRANSFERS: BED, CHAIR, WHEELCHAIR: TRANSFERS: BED, CHAIR, WHEELCHAIR - STEP 1: Does the patient require assistance of a person or device, or need extra time with bed, chair, or whe elchair transfers? Yes. TRANSFERS: BED, CHAIR, WHEELCHAIR - STEP 2: Does the patient require the assistance of a helper? Yes. TRANSFERS: BED, CHAIR, WHEELCHAIR - STEP 3: How much assistance does the patient require from the helper? Only supervision TRANSFERS: BED, CHAIR, WHEELCHAIR - SCORE: 5-SUP TRANSFERS: TOILET: Activity did not occur on this shift TRANSFERS: TOILET - SCORE: 0-UNK TRANSFERS: SHOWER: Activity did not occur on this shift TRANSFERS: SHOWER - SCORE: 0-UNK TRANSFERS: TUB: Activity did not occur on this shift TRANSFERS: TUB - SCORE: 0-UNK LOCOMOTION: WALK: LOCOMOTION: WALK - STEP 1: Does the patient need help from a person or device, or need extra time to walk 150 feet? Yes. LOCOMOTION: WALK - STEP 2: How much assistance does the patient require to walk a minimum of 150 feet? Only supervision, cuing, or coaxing LOCOMOTION: WALK - SCORE: 5-SUP LOCOMOTION: WHEELCHAIR: LOCOMOTION: WHEELCHAIR - STEP 1: Does the patient need help to go 150 feet in a wheelchair? Yes. LOCOMOTION: WHEELCHAIR - STEP 2: How much assistance does the patient need from the helper? Only supervision, cuing, or coaxing LOCOMOTION: WHEELCHAIR - SCORE: 5-SUP LOCOMOTION: STAIRS: Activity did not occur on this shift LOCOMOTION: STAIRS - SCORE: 0-UNK COMPREHENSION: COMPREHENSION - SCORE: 0-UNK EXPRESSION EXPRESSION - SCORE: 0-UNK SOCIAL INTERACTION: SOCIAL INTERACTION - SCORE: 0-UNK PROBLEM SOLVING: PROBLEM SOLVING - SCORE: 0-UNK MEMORY: MEMORY - SCORE: 0-UNK SIGNATURE PANEL: The following modified sections: Transfers: Bed, Chair, Wheelchair - Score, Transfers: Toilet - Score , Locomotion: Walk - Score, Locomotion: Wheelchair - Score, Locomotion: Stairs - Score were [ivan landa] signed by Murphy Frost PTA on FriOct 27 2018 15:26:23 T-0500 (Central Daylight Time)
--- NOTE | 2018-10-28 04:42 | DS ---
Date of Discharge: 10/27/2018 Patient was seen this morning for this followup visit. Physical Examination: HEENT: Examination unremarkable. Lungs: Clear to auscultation. Heart: Sounds normal. Abdomen: Soft. Bowel sounds normal. No guarding, rigidity, tenderness, or distention. Extremities: No leg edema. Discharge Instructions: 1.Continue all prior home medications. 2.Take jwdg-kff-eenqowy Senokot-S 2 tablets by mouth 2 times a day for constipation. 3.Follow up IN my office in 1 month. 4.Follow up with your clinical reviewer and orthopedic surgeon in [place] as per your appointment. Hospital Course: 87-year-old male patient who was admitted to the hospital to rehab floor for physic al therapy after hip fracture surgery. Please see dictated H and P for more information. Patient wa s admitted to rehab floor from home and he was provided physical therapy under guidance of rehab phys richard. Medical problems remained stable. He did have some anemia and he was given iron supplement. He had some constipation problem which required multiple doses of milk of magnesia and we also start ed Senokot-S and he did respond to that. Had painful swelling of left knee. 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 We did obtain his e chocardiogram, carotid Doppler, stress test results from [place] from his clinical reviewer's office and r artis reviewed. Patient will follow up with clinical reviewer and orthopedic surgeon as per his schedule appointment and he will call my office for appointment to be seen in sometime about a month or so. Patient's overall debility and generalized weakness problem has improved significantly and he is medi mario stable for discharge. Final Diagnoses: 1.Debility. 2.Generalized weakness. 3.Right hip intertrochanteric fracture, status post surgery. 4.Anemia due to acute blood loss. 5.Constipation. 6.Carotid artery stenosis. 7.Heart murmur. 8.Hypertension. 9.Coronary artery disease. 10.Hyperlipidemia. 11.Prostate cancer. 12.Paroxysmal atrial fibrillation. 13.Gastroesophageal reflux disease. 14.Gout. Discharge Medications: 1.Valium 2 mg p.o. daily p.r.n. 2.Tramadol 50 mg every 6 hours p.r.n. for pain. 3.Melatonin 3 mg at bedtime as needed. 4.Lidocaine patch apply topically daily as needed. 5.Gabapentin 400 mg 3 times a day. 6.Ferrous sulfate 1 tablet every other day. 7.Vitamin D2 50,000 unit every week. 8.Atorvastatin 40 mg at bedtime. 9.Tylenol 2 tablets p.o. twice a day. 10.MiraLAX 17 g p.o. daily as needed. 11.Allopurinol 300 mg p.o. daily. 12.Fluticasone nasal spray, 2 sprays each nostril daily p.r.n. 13.Aspirin 81 mg p.o. daily. 14.Lisinopril 2.5 mg twice a day. 15.Sotalol 40 mg twice a day. 16.Omeprazole 20 mg p.o. daily. 17.Patient was taking Celebrex 1 capsule daily at home and he will restart that also. RUI/MODL Voice ID: [id number] Report ID: [id number]
== END 2018-10-27 12:10 | disposition home health service (06) | DRG 560 ==
LOC: 5TH 09:52
PROVIDERS: ADMIT Internal Medicine; ATTEND Internal Medicine
DX: S72.141D Displaced intertrochanteric fracture of right femur, subsequent encounter for closed fracture with routine healing (principal); D62 Acute posthemorrhagic anemia; I25.10 Atherosclerotic heart disease of native coronary artery without angina pectoris; I10 Essential (primary) hypertension; M10.9 Gout, unspecified; K21.9 Gastro-esophageal reflux disease without esophagitis; C61 Malignant neoplasm of prostate; R53.81 Other malaise; I65.29 Occlusion and stenosis of unspecified carotid artery; R01.1 Cardiac murmur, unspecified; E78.5 Hyperlipidemia, unspecified; I48.0 Paroxysmal atrial fibrillation; K59.00 Constipation, unspecified; M17.12 Unilateral primary osteoarthritis, left knee
CPT/HCPCS: 36415; 80048; 80053; 81001; 82040; 83735; 84134; 84443; 85025; 87086; 87088; 97110; 97116; 97163; 97530; 97542

== ENCOUNTER 2018-11-03 19:45 | Inpatient (IN) | payer OTHER, BC ==
--- OUTSIDE RECORDS SUMMARY | 2018-11-03 20:06 | XMS REPORT | Clinical Summary ---
:1930 Author Organization [facility] Address [address] [place] [address] Care Team Providers Name Role Phone Asked, [...] 07/30/2018 Telephone Urology Jaspreet Raymond MD after 11/02/2017 Family History Medical History Relation Name Comments [...] Vital Signs Vital Sign Reading Time Taken Comments Blood Pressure - - Pulse - - [...] (HCC) procedure are in the results section. [id number] Routine 07/31/2018 8:18 AM Nocturia Results for this CDT procedure are in the results section. after 11/02/2017 Results PSA, total and free (07/31/2018 8:28 AM CDT) PSA 0.2 0.0 - 4.0 [facility] Comment: ng/mL Silvano ECLIA methodology. 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
--- OUTSIDE RECORDS SUMMARY | 2018-11-03 20:08 | XMS REPORT | Continuity of Care Document ---
:1930 Author Organization [employer] Information Countdown To Buy Care Team Providers Name Role [facility] Information Count[facility] To Buy Unavailable Unavailable Problems Problem Status Onset Classification Date Comments Source Date Reported CCL / BILAT Active 06/30/19 [facility] CAROTIDS ANGIO 19 Medical POSS WET WHEELER/STEN Center NAUSEA/VOMITING Active 04/09/19 [facility] 15 [facility] Center 715.16 - LOC Active 08/17/19 [facility]STE[facility] 14 [place] CHEST PAIN, Active 12/01/19 [place] [id number] Medical URGENCY Center CHEST PAIN Active 12/01/[address] Cancer Resolved Problem 08/18/2013 [facility] [place] Anemia Active Problem 07/03/2018 [facility] Bradycardia Active Problem 07/03/2018 [facility] Carotid stenosis Active Problem 07/03/2018 [facility] Cholesterol Resolved Problem 07/03/2018 [facility], [facility] [place] Hematoma Active Problem 07/03/2018 [facility] HTN - Resolved Problem 07/03/2018 [facility], [facility] [place] Prostate cancer Resolved Problem 07/03/2018 [facility], [facility] [place] Cancer Resolved Problem 12/04/2012 [facility] Cholesterol Resolved Problem 12/04/2012 [facility] HTN - Resolved Problem 12/04/2012 [facility] Prostate cancer Resolved Problem 12/04/2012 [facility] CHEST PAIN NOS Active [facility] Medications Medication Details Route Status Patient Ordering Order Source Instructions Provider Date Amlodipine 5 mg, 1 tab, Inactive [facility] Route: PO, Drug 2019 Medical form: TAB, Daily, Center Dosing Weight 97.727, kg, Start date: 07/01/18 9:00:00 CDT, Duration: 30 day, Stop date: 07/30/18 9:00:00 CDTNotes: (Same as: Norvasc) Allopurinol 300 mg, 1 tab, Inactive [facility] Route: PO, Drug 2019 Medical form: TAB, [...] MG 3 mg, 1 tab, No Longer [place] Extended Release Route: PO, Drug Active 2018 [...] PO, Drug Active 2018 Medical form: TAB, Center Bedtime, Dosing Weight 97.727, kg, Start date: 06/30/18 21:00:00 CDT, Duration: 30 day, Stop date: 07/29/18 21:00:00 CDTNotes: (Same As: Lipitor) Sotalol 80 mg, 1 tab, No Longer [facility] Route: PO, Drug Active 2019 Medical form: [...] Stop date: 07/30/18 12:02:00 CDTNotes: (Same As: Tums) Calcium Carbonate 500 cc=809 mg elemental calcium Dose= mg calcium carbonate ( mg elemental calcium) Calcium 1 gm, 10 mL, No Longer [place] Gluconate Route: IVPB, PRN, Active 2019 Medical Dosing Weight Center 97.727, kg, PRN Abnormal Lab Result, Start date: 06/30/18 12:03:00 CDT, Duration: 30 day, Stop date: 07/30/18 12:02:00 CDT, FOR ICU USE ONLYNotes: WASTE: F/P - Sink; E - Municipal Trash Bin Magnesium 2 gm, 50 mL, No Longer [place] Sulfate Route: IVPB, Drug Active 2018 Medical [...] CDTNotes: (Same as: Mag-Ox 400) Magnesium oxide [id number] elemental magnesium Dose=____mg magnesium oxide (___mg elemental magnesium) potassium 45 mmol, 15 mL, No Longer [place] phosphate Route: IVPB, PRN, Active 2019 Medical [...] phosphate 30 mmol, 10 mL, No Longer [place] Route: IVPB, PRN, Active 2018 Medical Dosing [...] Potassium 20 mEq, 15 mL, No Longer [place] Chloride Route: [place], Drug Active 2018 Medical form: LIQ, PRN, Center Dosing Weight 97.727, kg, PRN Abnormal Lab Result, Start date: 06/30/18 12:03:00 CDT, Duration: 30 day, Stop date: 07/30/18 12:02:00 CDT, FOR ICU USE ONLYNotes: (Same as: Potassium Chloride) Nitroglycerin 0.4 mg, 1 tab, No Longer [place] Route: KIARA, Drug Active 2018 Medical form: TAB, Q5Min, Center Dosing Weight 97.727, kg, PRN Chest Pain, Start date: 06/30/18 9:19:00 CDT, Duration: 3 doses or times, Stop date: Limited # of timesNotes: (Same as:Nitroquick, Nitrostat) "Do Not Crush" Sublingual tablet Plavix 75 mg, 1 tab, No Longer [place] Route: PO, Drug Active 2018 Medical form: TAB, Daily, Center Dosing Weight 97.727, kg, Start date: 06/30/18 9:18:00 CDT, Duration: 30 day, Stop date: 07/30/18 9:00:00 CDTNotes: (Same As: Plavix) Aspirin 81 mg, 1 tab, No Longer [place] Route: PO, Drug Active 2018 Medical form: [place], Center Daily, Dosing Weight 97.727, kg, Start date: 06/30/18 9:17:00 CDT, Duration: 30 day, Stop date: 07/30/18 9:00:00 CDTNotes: Take with food. Streptococcus 0.5 mL, Route: No Longer [place] pneumoniae IM, Drug Form: Active 2018 Medical serotype 1 INJ, ONCALL, [place] capsular antigen Start date: diphtheria 06/30/18 6:56:54 [id number] protein CDT, Stop date: conjugate 07/30/18 6:51:54 vaccine / CDTNotes: Shake Streptococcus well prior to use pneumoniae (Same as: serotype 14 Prevnar 13) capsular antigen diphtheria [id number] protein conjugate vaccine / Streptococcus pneumoniae serotype 18C capsular antigen d Amlodipine 5 mg, PO, Daily, Active [place] 0 Refill(s) 2019 Medical [place] clopidogrel 75 75 mg=1 tab, PO, Active [place] MG Oral Tablet Daily, 0 2018 [facility] [Plavix] Refill(s) [place] Protonix 40 mg, 1 tab, PO No Longer [facility] [place] Route: PO, Drug Active 2012 Medical form: ECTAB, [place] Before Dinner, Start date: 12/01/12 16:30:00, Duration: 30 day, Stop date: 12/30/12 16:30:00 sotalol 80 mg, 1 tab, PO No Longer [facility] [place] Route: PO, Drug Active 2012 Medical form: TAB, BID, Center Dosing Weight 103.182, kg, Start date: 12/01/12 9:00:00, Duration: 30 day, Stop date: 12/30/12 17:00:00 Prilosec 20 mg, Route: PO, PO No Longer [facility] Drug form: DRC, Active 2012 Medical BID, Dosing Center Weight 103.182, kg, Start date: 12/01/12 9:00:00, Duration: 30 day, Stop date: 12/30/12 17:00:00 multivitamin 1 tab, Route: PO, PO No Longer [place] [facility] Drug Form: TAB, Active 2012 Medical Dosing Weight Center 103.182, kg, Daily, Start date: 12/01/12 9:00:00, Duration: 30 day, Stop date: 12/30/12 9:00:00 lisinopril 40 mg, 2 tab, PO No Longer [place] [facility] Route: PO, Drug Active 2012 Medical form: TAB, BID, Center Dosing Weight 103.182, kg, Start date: 12/01/12 9:00:00, Duration: 30 day, Stop date: 12/30/12 17:00:00 aspirin 81 mg, 1 tab, PO No Longer [place] [facility] Route: PO, Drug Active 2012 Medical form: [place], Center Daily, Dosing Weight 103.182, kg, Start date: 12/01/12 9:00:00, Duration: 30 day, Stop date: 12/30/12 9:00:00 allopurinol 300 mg, 1 tab, PO No Longer [place] [facility] Route: PO, Drug Active 2012 Medical form: TAB, Daily, Center Dosing Weight 103.182, kg, Start date: 12/01/12 9:00:00, Duration: 30 day, Stop date: 12/30/12 9:00:00 amLODipine 5 mg, 1 tab, PO No Longer [facility] Route: PO, Drug Active kavita 2012 Medical form: TAB, Daily, Center Dosing Weight 102.273, kg, Start date: 12/01/12 9:00:00, Duration: 30 day, Stop date: 12/30/12 9:00:00 ibuprofen 400 mg, 1 tab, PO No Longer Agnelito [facility] Route: PO, Drug Active 2012 Medical form: TAB, ONCE, Center Dosing Weight 102.273, kg, Start date: 11/30/12 20:47:00, Stop date: 11/30/12 20:47:00 Prilosec 20 mg 20 mg, 1 cap, PO, PO [facility] oral delayed BID, 30 cap, 2012 Medical release capsule Substitution Center Allowed multivitamin 1 tab, PO, Daily, PO On Hold [facility] Substitution 2012 Medical Allowed, Center Maintenance aspirin 81 mg, PO, Daily, PO Active [facility] Substitution 2012 Medical Allowed Center fentanyl 50 microgram, 1 IVP No Longer [facility] mL, Route: IVP, Active kavita 2012 Medical Drug form: INJ, Center ONCE, Dosing Weight 102.273, kg, Priority: STAT, Start date: 11/30/12 15:34:00, Stop date: 11/30/12 15:34:00 Cardene 40 mg in 40 mg, 200 mL, IV No Longer [facility] NS 200 ml IV 40 Rate: Titrate, Active kavita 2012 Medical mg Dosing Weight Center 102.273, kg, Route: IV, Total Volume: 200 mL, Duration: 30 day, Stop date: 12/30/12 15:33:00, Replace Every: 24 hr nitroglycerin 0.4 mg, 1 tab, SL No Longer [facility] Route: SL, Drug Active kavita 2012 Medical form: TAB, ONCE, Center Dosing Weight 102.273, kg, Priority: STAT, Start date: 11/30/12 14:41:00, Stop date: 11/30/12 14:41:00 morphine Sulfate 2 mg, 1 mL, IVP No Longer [facility] Route: IVP, Drug Active kavita 2012 Medical form: INJ, ONCE, Center Dosing Weight 102.273, kg, Priority: STAT, Start date: 11/30/12 14:40:00, Stop date: 11/30/12 14:40:00 Saline Flush 5 mL, Route: IVP, IVP No Longer [facility] 0.9% Drug Form: INJ, Active kavita 2012 Medical Dosing Weight Center 102.273, kg, Q8H, PRN Line Flush, Start date: 11/30/12 14:37:00, Duration: 30 day, Stop date: 12/30/12 14:36:00, Administer at least once every 8 hoursAdminister at least once every 8 hours allopurinol 300 mg, PO, PO On Hold [facility] Daily, 2012 Medical Substitution Center Allowed lisinopril 40 mg, PO, BID, PO On Hold [facility] [place] Substitution 2012 Medical Allowed Center sotalol 80 mg, PO, BID, PO On Hold [facility] [place] Substitution 2012 [facility] Allowed [place] influenza virus 0.5 ml, Route: IM No Longer Feng [place] vaccine, IM, Drug Form: Active 2007 Medical inactivated INJ, ONCE, Start Center date: 01/29/08 9:00:00, Stop date: 01/29/08 9:00:00 Allergies, Adverse Reactions, Alerts No Known Medication Allergies Immunizations Immunization Date Site Status Last Updated Comments Source Given influenza virus Left completed [facility] [facility] vaccine, 8 deltoid [facility] inactivated Center, [facility] [place] influenza virus completed [employer] [facility] vaccine, 8 [facility] inactivated Center Results Order Name Results Value Reference Date Interpretation Comments Source Range CHEM PANEL Phosphorus 4.3 2.5 - 4.5 07/01 [facility] CHEM PANEL Magnesium 2.2 1.8 - 2.4 07/01 [facility] CHEM PANEL eGFR 64 07/01 Result Comment: The Medical eGFR is Center calculated [...] PANEL BUN 25 7 - 22 07/[address] CHEM PANEL B/C Ratio 24 6 - 25 07/[address] CHEM PANEL Calcium Lvl 8.4 8.5 - 10.5 07/[address] CHEM PANEL AGAP 11.7 10.0 - 07/01 [place] 20.0 [facility] CHEM PANEL Potassium 4.7 3.5 - 5.1 07/01 [facility] /[address] [place] [address] CHEM PANEL Chloride Lvl 106 95 - 109 07/[address] CHEM PANEL Creatinine 1.04 0.50 - 07/01 [facility] 1.40 [facility] CHEM PANEL Sodium Lvl 139 135 - 145 07/[address] CHEM PANEL CO2 26 24 - 32 07/[address] CHEM PANEL Glucose Lvl 106 70 - 99 07/[address] CHEM PANEL AST 15 0 - 37 07/[address] CHEM PANEL Alk Phos 85 39 - 136 07/[address] CHEM PANEL Albumin Lvl 2.2 3.5 - 5.0 07/[address] CHEM PANEL ALT 12 0 - 65 07/[address] CHEM PANEL Total 5.8 6.4 - 8.4 07/01 [facility] Protein [address] CHEM PANEL Bili Total 0.5 0.2 - 1.3 07/[address] CHEM PANEL Globulin 3.6 2.7 - 4.2 07/[address] CHEM PANEL A/G Ratio 0.6 0.7 - 1.6 07/[address] HEMATOLOGY Monocytes 10.3 2.0 - 12.0 07/[address] HEMATOLOGY Lymphocytes 1.5 1.0 - 5.5 07/[address] HEMATOLOGY Neutrophils 5.0 1.5 - 8.1 07/[address] HEMATOLOGY Basophils 0.6 0.0 - 1.0 07/[address] HEMATOLOGY Eosinophils 0.9 0.0 - 4.0 07/01 [facility] HEMATOLOGY Eosinophils 0.1 0.0 - 0.5 07/01 [place] # /2019 [facility] HEMATOLOGY Segs 68.2 45.0 - 07/01 [place] 75.0 /2019 [facility] HEMATOLOGY Lymphocytes 20.0 20.0 - 07/01 [place] 40.0 /2019 [facility] HEMATOLOGY Monocytes # 0.8 0.0 - 0.8 07/01 [facility] HEMATOLOGY Thrombin 18.7 15.0 - 07/01 [place] Time 21.2 /2019 [facility] HEMATOLOGY INR 1.29 0.85 - 07/01 [place] 1.17 [facility] HEMATOLOGY PT 15.8 12.0 - 07/01 [place] 14.7 2019 [facility] HEMATOLOGY PTT 37.8 22.9 - 07/01 [place] 35.8 /2019 [facility] HEMATOLOGY D-Dimer 0.64 07/01 [facility] HEMATOLOGY Fibrinogen 399 230 - 510 07/01 [facility] Lvl /2018 [facility] HEMATOLOGY RBC 3.86 4.70 - 07/01 [place] 6.10 [facility] HEMATOLOGY Hgb 11.1 14.0 - 07/01 [place] 18.0 2019 [facility] HEMATOLOGY Hct 33.6 42.0 - 07/01 [place] 54.0 2019 [facility] HEMATOLOGY WBC 7.4 3.7 - 10.4 07/01 [facility] HEMATOLOGY MCH 28.7 27.0 - 07/01 [place] 31.0 [facility] HEMATOLOGY MCV 86.9 80.0 - 07/01 [place] 94.0 2019 [facility] HEMATOLOGY MPV 8.3 7.4 - 10.4 07/01 [facility] HEMATOLOGY RDW 15.9 11.5 - 07/01 [place] 14.5 2019 [facility] HEMATOLOGY Platelet 231 133 - 450 07/01 [facility] HEMATOLOGY MCHC 33.0 32.0 - 07/01 [place] 36.0 2019 [facility] PARATHYROID Ca Ion WB 1.12 1.05 - 07/01 [place] PROFILE . [facility] PARATHYROID Ca Norm WB 1.12 1.05 - 07/01 [place] PROFILE . [facility] HEMATOLOGY MPV 8.9 7.4 - 10.4 07/01 [facility] HEMATOLOGY Platelet 244 133 - 450 07/01 [facility] HEMATOLOGY MCH 28.4 27.0 - 07/01 [place] 31.0 Medical [place] HEMATOLOGY MCHC 32.8 32.0 - 07/01 36.0 [facility] HEMATOLOGY RDW 15.6 11.5 - 07/01 14. [facility] HEMATOLOGY MCV 86.6 80.0 - 07/01 94.0 [facility] HEMATOLOGY Hct 34.0 42.0 - 07/01 [place] 54.0 [facility] HEMATOLOGY WBC 8.3 3.7 - 10.4 07/01 [facility] HEMATOLOGY RBC 3.92 4.70 - 07/01 [place] . [facility] HEMATOLOGY Hgb 11.1 14.0 - 07/01 [facility] BLOOD BANK RBC product Product available 06/30 [facility] RESULTS (06/30/18 4:29 PM) [facility] HEMATOLOGY Hgb 11.2 14.0 - 06/30 . [facility] HEMATOLOGY Hct 34.7 42.0 - 06/30 54.0 [facility] HEMATOLOGY RDW 16.0 11. - 06/30 . [facility] HEMATOLOGY Platelet 296 133 - 450 06/30 [facility] HEMATOLOGY MCH 28.3 27.0 - 06/30 31.0 Medical Center HEMATOLOGY MCHC 32.4 32.0 - 06/30 36.0 [facility] HEMATOLOGY MPV 8.3 7.4 - 10.4 06/30 [facility] HEMATOLOGY WBC 6.6 3.7 - 10.4 06/30 [facility] HEMATOLOGY Hct 34.7 42.0 - 06/30 [place] 54.0 [facility] HEMATOLOGY MCV 87.6 80.0 - 06/30 [place] .0 [facility] HEMATOLOGY RBC 3.96 4.70 - 06/30 [place] . [facility] HEMATOLOGY Hgb 11.2 14.0 - 06/30 [place] 18.0 2019 [facility] HEMATOLOGY POC <68 06/30 [facility] Medical Clotting Center Time HEMATOLOGY POC 225 06/30 [facility] Activated [facility] Clotting Center Time CHEM PANEL Lactic Acid 0.6 0.5 - 2.2 04/23 [facility] CHEM PANEL Phosphorus 3.4 2.5 - 4.5 06/30 [facility]2018 [facility] CHEM PANEL Magnesium 1.9 1.8 - 2.4 06/30 [facility] ELECTROLYTE AGAP 12.1 10.0 - 06/30 [facility] 20.0 [facility] ELECTROLYTE eGFR 82 06/30 Result [facility] Comment: The Medical eGFR is Center calculated [...] Calcium Lvl 8.5 8.5 - 10.5 06/30 [facility] [address] [place] [address] ELECTROLYTE CO2 25 24 - 32 06/[address] ELECTROLYTE BUN 17 7 - 22 06/30 [facility]2018 [facility] ELECTROLYTE Potassium 4.1 3.5 - 5.1 06/30 [facility] ELECTROLYTE Sodium Lvl 137 135 - 145 06/[address] ELECTROLYTE Creatinine 0.75 0.50 - 06/30 [facility] Lvl 1.40 [facility] ELECTROLYTE Chloride Lvl 104 95 - 109 06/30 [facility]2018 [facility] ELECTROLYTE Glucose Lvl 101 70 - 99 06/[address] HEMATOLOGY Eosinophils 0.3 0.0 - 0.5 06/30 [facility] HEMATOLOGY Monocytes # 0.6 0.0 - 0.8 06/[address] HEMATOLOGY Lymphocytes 1.3 1.0 - 5.5 06/30 [place] # /2018 [facility] HEMATOLOGY Eosinophils 5.1 0.0 - 4.0 06/30 [facility] HEMATOLOGY Neutrophils 3.6 1.5 - 8.1 06/30 [place] # /2018 [facility] HEMATOLOGY Basophils 0.6 0.0 - 1.0 06/30 [facility] HEMATOLOGY Monocytes 10.5 2.0 - 12.0 06/30 /2018 [facility] HEMATOLOGY Lymphocytes 21.8 20.0 - 06/30 [place] 40.0 [facility] HEMATOLOGY Segs 62.0 45.0 - 06/30 [place] 75.0 [facility] HEMATOLOGY PTT 155.2 22.9 - 06/30 [place] 35. [facility] HEMATOLOGY PT 42.7 12.0 - 06/30 [place] . [facility] HEMATOLOGY INR 4.64 0.85 - 06/30 Result 03.26 Comment: [facility] Result(s) called to aleksander medina at 06/30/2018 09:49 bypm. Read back OK. PARATHYROID Ca Norm WB 1.10 1.05 - 06/30 [facility] PROFILE . [facility] PARATHYROID Ca Ion WB 1.08 1.05 - 06/30 [facility] PROFILE 04.03 [facility] BLOOD BANK Antibody Negative 06/30 [facility] RESULTS Scrn (06/30/18 6:40 AM) [facility] BLOOD BANK ABO/Rh O POS 06/30 [facility] RESULTS [facility] HEMATOLOGY PT 15.6 12.0 - 06/30 [place] 14. [facility] HEMATOLOGY INR 1.27 0.85 - 06/30 [place] 03.26 [facility] HEMATOLOGY PTT 43.2 22.9 - 06/30 [place] 35. [facility] CHEMISTRY eGFR 83 12/02 NA <sup>1</sup>Re /2012 [...] BUN 21 7 - 22 12/02 Normal [facility] CHEMISTRY Creatinine 0.8 0.5 - 1.4 12/02 Normal [facility] Lvl [facility] Center CHEMISTRY Glucose Lvl 100 70 - 99 12/02 [place] <sup>4</sup>In terpretive Medical Data: Adult Center reference range values reflect the clinical guidelines<br/ >of the [place] [employer]. CHEMISTRY Sodium Lvl 141 135 - 145 12/02 Normal [facility] CHEMISTRY Calcium Lvl 8.0 8.5 - 10.5 12/02 LOW [facility] CHEMISTRY Potassium 4.3 3.5 - 5.1 12/02 Normal [facility] l [facility] CHEMISTRY Chloride Lvl 106 95 - 109 12/02 Normal [facility] Center CHEMISTRY CO2 26 24 - 32 12/02 Normal [facility] CHEMISTRY AGAP 13.3 10.0 - 12/02 [facility] 20.0 [facility] HEMATOLOGY MPV 8.3 7.4 - 10.4 12/02 Normal [facility] HEMATOLOGY Platelet 169 133 - 450 12/02 Normal [facility] HEMATOLOGY RDW 17.1 11.5 - 12/02 [place] 14.5 [facility] Center HEMATOLOGY MCHC 32.3 32.0 - 12/02 Normal [place] 36.0 [facility] Center HEMATOLOGY Hgb 12.3 14.0 - 12/02 LOW [place] 18.0 [facility] HEMATOLOGY MCH 27.1 27.0 - 12/02 [facility] [place] 31.0 [facility] Center HEMATOLOGY MCV 83.8 80.0 - 12/02 Normal [place] 94.0 [facility] HEMATOLOGY Hct 38.1 42.0 - 12/02 LOW [place] 54.0 [facility] Center HEMATOLOGY RBC 4.55 4.70 - 12/02 LOW [place] 6.10 /2012 [facility] HEMATOLOGY WBC 5.2 3.7 - 10.4 12/02 Normal [facility] HEMATOLOGY Monocytes 10.1 2.0 - 12.0 12/02 Normal [facility] HEMATOLOGY Lymphocytes 24.0 20.0 - 12/02 Normal [place] 40.0 /2012 [facility] HEMATOLOGY Segs 61.8 45.0 - 12/02 Normal [place] 75.0 /2012 [facility] HEMATOLOGY Lymphocytes 1.2 1.0 - 5.5 12/02 Normal [place] # /2012 [facility] Center HEMATOLOGY Monocytes # 0.5 0.0 - 0.8 12/02 Normal [facility] HEMATOLOGY Basophils 0.7 0.0 - 1.0 12/02 Normal [facility] HEMATOLOGY Eosinophils 3.4 0.0 - 4.0 12/02 Normal [facility] HEMATOLOGY Segs-Bands # 3.2 1.5 - 8.1 12/02 Normal [facility] HEMATOLOGY Eosinophils 0.2 0.0 - 0.5 12/02 Normal [facility] # /2012 [facility] CHEMISTRY eGFR 79 12/01 NA <sup>2</sup>Re sult [...] values reflect the clinical guidelines<br/ >of the [place] [employer]. CHEMISTRY BUN 16 7 - 22 12/01 Normal Medical Center CHEMISTRY Calcium Lvl 8.0 8.5 - 10.5 12/01 LOW [facility] Center CHEMISTRY AGAP 12.0 10.0 - 12/01 Normal [place] 20.0 /2012 Medical Center CHEMISTRY Chloride Lvl 104 95 - [...] Center HEMATOLOGY Hgb 13.2 14.0 - 12/01 [facility] [place] 18.0 Medical Center HEMATOLOGY RBC 4.96 4.70 - 12/01 Normal [place] 6.10 Medical Center HEMATOLOGY Hct 41.7 42.0 - 12/01 [facility] [place] 54.0 /2012 Medical Center HEMATOLOGY WBC 5.9 3.7 - 10.4 12/01 Normal Medical Center HEMATOLOGY MCV 84.0 80.0 - 12/01 [facility] [place] 94.0 /2012 Medical Center HEMATOLOGY MCH 26.7 27.0 - 12/01 [facility] [place] 31.0 Medical Center HEMATOLOGY RDW 17.5 11.5 - 12/01 [facility] [place] 14.5 /2012 Medical Center HEMATOLOGY Platelet 185 133 - 450 12/01 Normal Medical Center HEMATOLOGY MCHC 31.8 32.0 - 12/01 [facility] [place] 36.0 /2012 Medical Center HEMATOLOGY MPV 8.3 7.4 - 10.4 12/01 Normal Medical Center HEMATOLOGY Monocytes 8.8 2.0 - 12.0 12/01 Normal Medical Center HEMATOLOGY Lymphocytes 19.3 20.0 - 12/01 [facility] [place] 40.0 /2012 Medical Center HEMATOLOGY Segs 67.1 45.0 - 12/01 Normal [place] 75.0 /2012 Medical Center HEMATOLOGY Eosinophils 4.1 0.0 - 4.0 12/01 [facility] Medical Center HEMATOLOGY Segs-Bands # 3.9 1.5 - 8.1 12/01 Normal [facility] HEMATOLOGY Eosinophils 0.2 0.0 - 0.5 12/01 Normal [facility] # /2012 [facility] HEMATOLOGY Monocytes # 0.5 0.0 - 0.8 12/01 Normal [facility] HEMATOLOGY Basophils 0.7 0.0 - 1.0 12/01 Normal /2012 [facility] HEMATOLOGY Lymphocytes 1.1 1.0 - 5.5 12/01 Normal [place] # /2012 [facility] CHEMISTRY Troponin-T <0.010 0.000 - 12/01 Normal [facility] 0.100 [facility] CHEMISTRY Troponin-I <0.02 0.00 - 12/01 Normal [facility] 0.40 [facility] CHEMISTRY Total CK 60 - 12/01 Normal [facility] CHEMISTRY Phosphorus 3.3 2.5 - 4.5 11/30 Normal [facility] CHEMISTRY Magnesium 2.0 1.8 - 2.4 11/30 Normal [facility] Lvl [facility] CHEMISTRY Troponin-I <0.02 0.00 - 11/30 Normal [facility] 0.40 [facility] CHEMISTRY Total CK 34 - 191 11/30 Normal [facility] CHEMISTRY eGFR 79 11/30 NA <sup>3</sup>Re suldipesh Comment: Medical The eGFR is Center calculated [...] Potassium 4.2 3.5 - 5.1 11/30 Normal [facility] l Medical Center CHEMISTRY Sodium Lvl 138 135 - 145 11/30 Normal Medical Center CHEMISTRY CO2 32 24 - 32 11/30 Normal Medical [facility] CHEMISTRY Chloride Lvl 103 95 - 109 11/30 Normal [facility] CHEMISTRY BUN 16 7 - 22 11/30 Normal Medical [facility] CHEMISTRY Creatinine 0.9 0.5 - 1.4 11/30 Normal [facility] Medical Center CHEMISTRY Glucose Lvl 101 70 - 99 11/30 [place] <sup>6</sup>In terpretive Medical Data: Adult Center reference range values reflect the clinical guidelines<br/ >of the [place] [employer]. CHEMISTRY ALT 28 0 - 65 11/30 Normal [facility] Center CHEMISTRY Alk Phos 105 39 - 136 11/30 Normal Medical Center CHEMISTRY Total 7.2 6.4 - 8.4 11/30 Normal Medical Center CHEMISTRY Bili Total 0.4 0.2 - 1.3 11/30 Normal Medical Center CHEMISTRY Albumin Lvl 3.1 3.5 - 5.0 11/30 LOW [facility] Center CHEMISTRY AST 26 0 - 37 11/30 Normal [facility] Center CHEMISTRY B/C Ratio 18 6 - 25 11/30 Normal [facility] CHEMISTRY AGAP 7.2 10.0 - 11/30 LOW [place] 20.0 [facility] CHEMISTRY Globulin 4.1 2.0 - 4.0 11/30 [facility] CHEMISTRY A/G Ratio 0.8 0.7 - 1.6 11/30 Normal [facility] CHEMISTRY Troponin-T <0.010 0.000 - 11/30 Normal [place] 0.100 [facility] HEMATOLOGY Lymphocytes 1.1 1.0 - 5.5 11/30 Normal [place] # /2012 [facility] HEMATOLOGY Segs-Bands # 3.2 1.5 - 8.1 11/30 Normal [facility] HEMATOLOGY Monocytes # 0.5 0.0 - 0.8 11/30 Normal [facility] HEMATOLOGY Basophils 0.8 0.0 - 1.0 11/30 Normal [facility] HEMATOLOGY Eosinophils 0.2 0.0 - 0.5 11/30 Normal [place] # /2012 [facility] HEMATOLOGY Basophils # 0.0 0.0 - 0.2 11/30 Normal /2012 [facility] HEMATOLOGY Segs 64.9 45.0 - 11/30 Normal [place] 75.0 /2012 [facility] HEMATOLOGY Monocytes 9.1 2.0 - 12.0 11/30 Normal /2012 [facility] HEMATOLOGY Eosinophils 3.2 0.0 - 4.0 11/30 Normal /2012 [facility] HEMATOLOGY Lymphocytes 22.0 20.0 - 11/30 Normal [place] 40.0 /2012 [facility] HEMATOLOGY PTT 35.4 22.9 - 11/30 Normal <sup>8</sup>In [facility] 35.8 terpretive Medical Data: [facility] Center Therapeutic Range: 57 - 92 Seconds HEMATOLOGY PT 13.5 12.0 - 11/30 Normal [place] 14.7 /2012 [facility] HEMATOLOGY INR 1.04 0.85 - 11/30 Normal <sup>7</sup>In [facility] 1.17 terpretive Medical Data: Center RECOMMENDED RANGES FOR PROTIME INR:
2.0-3.0 for most medical and surgical thromboembolic states.
2.5-3.5 for artificial heart valves and recurrent embolism.

INR SHOULD BE USED ONLY FOR PATIENTS ON STABLE ANTICOAGULANT THERAPY. HEMATOLOGY MPV 8.2 7.4 - 10.4 11/30 Normal [facility] HEMATOLOGY Platelet 214 133 - 450 11/30 Normal [facility] HEMATOLOGY WBC 5.0 3.7 - 10.4 11/30 Normal /2012 [facility] HEMATOLOGY Hct 39.4 42.0 - 11/30 LOW [place] 54.0 /2012 [facility] HEMATOLOGY MCV 82.4 80.0 - 11/30 Normal [place] 94.0 [facility] HEMATOLOGY Hgb 12.8 14.0 - 11/30 [facility] [place] 18.0 [facility] HEMATOLOGY RBC 4.78 4.70 - 11/30 Normal [place] 6.10 /2012 [facility] HEMATOLOGY RDW 16.7 11.5 - 11/30 HI [place] 14.5 [facility] HEMATOLOGY MCHC 32.6 32.0 - 11/30 Normal [facility] [place] 36.0 /2012 [facility] HEMATOLOGY [facility] 26.9 27.0 - 11/30 LOW [facility] 31.0 /2013 [facility] Pathology Reports No Data Provided for This Section Diagnostic Reports Report Value Date Source Chest 1view DX EXAM: XR CHEST 1 VIEW 07/01/2018 [facility] DATE: 07/01/2018 8:08 CDT Center INDICATION: - SOB COMPARISON: 04/09/2014 TECHNIQUE: AP chest FINDINGS: Lines, tubes and hardware: None. Lungs and pleura: Lungs are clear. Costophrenic sulci are sharp. Heart and mediastinum: normal for technique. Bones: No acute bony abnormality is identified. IMPRESSION: 1. No acute cardiopulmonary abnormality Chest 2 views EXAM: XR CHEST 2 VIEWS 04/09/2014 [facility] DATE: April 09, 2014 at 1743 hours INDICATION: Coughing COMPARISON: November 30, 2012 TECHNIQUE: Frontal and lateral chest radiographs DISCUSSION: No pulmonary or pleural based abnormality is identified. Tortuous ectatic aorta. Pulmonary vascularity is normal. The cardiomediastinal silhouette is normal. No acute bony abnormality is identified. IMPRESSION: No acute cardiopulmonary abnormality identified. Bone length scanogram EXAM: XR LIMB LENGTH SCANOGRAM 1 VIEW 08/16/2013 [facility] DATE: 08/16/2013 at 1115 hours INDICATION: [...] EXAM: XR RIGHT KNEE 3 VIEWS 08/16/2013 [facility] DATE: 08/16/2013 at 0917 hours INDICATION: 719.46 [...] Renal with Renal INDICATION: Renal insufficiency. 12/01/2012 [facility] vessel Doppler US Center PROCEDURE: The kidneys [...] vessels. Carotid artery INDICATION: Carotid bruit 12/01/2012 [facility] bilateral Duplex US Center PROCEDURE: The extracranial [...] CT EXAM: CT head without contrast 11/30/2012 [facility] DATE: November 30, 2012 at 1527 INDICATION: Left arm and leg numbness DISCUSSION: Noncontrast images of the head demonstrate no edema, hemorrhage, mass lesion or other intracranial abnormality. Age-related atrophic changes are seen diffusely. The sinuses and skull base are unremarkable. IMPRESSION: Negative exam. Chest 1view EXAM: XR CHEST 1 VIEW 11/30/2012 [facility] DATE: 11/30/2012 at 15:25 hours. INDICATION: Chest [...] Date Comments Source Respitory Rate 28 07/01/2018 [facility] Systolic (mm Hg) 99 07/01/2018 [facility] Diastolic (mm Hg) 54 07/01/2018 [facility] Respitory Rate 26 07/01/2018 [facility] Respitory Rate 23 07/01/2018 [facility] Systolic (mm Hg) 105 07/01/2018 [facility] Diastolic (mm Hg) 58 07/01/2018 [facility] Systolic (mm Hg) 93 07/01/2018 [facility] Diastolic (mm Hg) 53 07/01/2018 [facility] Temperature Oral (F) 97.9 F 06/30/2018 [facility] Temperature Oral (F) 97.0 F 06/30/2018 [facility] Temperature Oral (F) 97.8 F 06/30/2018 [facility] BMI Calculated 28.43 06/30/2018 [facility] Height 185.42 cm 06/30/2018 [facility] Weight 97.727 06/30/2018 [facility] Heart Rate 47 12/02/2012 [facility] Diastolic (mm Hg) 78 12/02/2012 [facility] Temperature Oral (F) 98.1 F 12/02/2012 [facility] Systolic (mm Hg) 161 12/02/2012 [facility] Respitory Rate 20 12/02/2012 [facility] Diastolic (mm Hg) 73 12/02/2012 [facility] Heart Rate 50 12/02/2012 [facility] Respitory Rate 18 12/02/2012 [facility] Systolic (mm Hg) 146 12/02/2012 [facility] Temperature Oral (F) 97.7 F 12/02/2012 [facility] Systolic (mm Hg) 144 12/02/2012 [facility] Respitory Rate 18 12/02/2012 [facility] Temperature Oral (F) 97.4 F 12/02/2012 [facility] Heart Rate 51 12/02/2012 [facility] Diastolic (mm Hg) 67 12/02/2012 [facility] Weight 103.182 12/01/2012 [facility] Height 182.88 cm 12/01/2012 [facility] Height 182.88 cm 11/30/2012 [facility] Weight 102.273 11/30/2012 [facility] Encounters Location Location Encounter Encounter Reason Attending ADM DC Status Source Details Type Number For Provider Date Date Visit [facility] OU [id number] JASMINE 11/30 12/02 Discharg [facility] JOHN /2012 [facility] [place] [facility] Outpt Diag [id number] Ranjan 08/16 08/17 [facility] Payam /2013 [facility] Inpatient [id number] [place] 06/30 07/01 [place] [facility] Feng /2018 [facility] Procedures Procedure Code Date Perfomer Comments Source Chemotherapy [id number] [facility] Lymphadenotomy [id number] [facility] Placement of stent [id number] [facility] cardiac conduit [facility] XRT - Radiotherapy [id number] [facility] Chemotherapy [id number] [facility] Lymphadenotomy [id number] [facility] Placement of stent [id number] [facility] in cardiac conduit [facility] XRT - Radiotherapy [facility] Assessment and Plan Assessment and Plan Date Source Extracted from:Title: CO PCCM Consult Note 07/01/2018 [facility] Author: J Carlos Lopez MD Date: 06/30/18 [...] History Date Source Social History TypeResponse 06/30/2018 [facility] Smoking Status Never smoker; Exposure to Tobacco Smoke None; Cigarette Smoking Last 365 Days No; Reg Smoking Cessation Counseling No entered on: 06/30/18 Social History TypeResponse 08/17/2013 DENISE Lackey Family History No Data Provided for This Section Advance Directives No Data Provided for This Section Functional Status No Data Provided for This Section
--- OUTSIDE RECORDS SUMMARY | 2018-11-03 20:09 | XMS REPORT | CCD ---
:1930 Author Organization [facility] [place] [facility] Care Team Providers Name Role Phone BenjamínGil [...] values reflect the clinical guidelines of the [employer].5Interpretive Data: Adult reference range values reflect the clinical guidelines of the [employer].6Interpretive Data: Adult reference range values reflect the clinical guidelines of the [employer].HEMATOLOGY Most recent to oldest 1 [...]
--- OUTSIDE RECORDS SUMMARY | 2018-11-03 20:09 | XMS REPORT ---
:1930 [facility] Address [address] [place] [address] Dr. [address] [place] [address] Care Team Providers Name Role Phone Unavailable Unavailable Unavailable Problems This patient has no known problems. Allergies, Adverse Reactions, Alerts This patient has no known allergies or adverse reactions. Medications This patient has no known medications. Encounters Start End Encounter Admission Attending Care Care Encounter Date/Time Date/Time Type Type Clinicians Facility Department ID 2018-09-11 Inpatient [facility] [id number] 16:19:25 2018-09-08 Inpatient E [facility] [id number] 13:44:00 2018-09-08 2018-09-08 Outpatient [facility] KENN [id number] 17:11:00 17:11:00 2018-06-30 2018-06-30 Inpatient [facility] CAR [id number] 09:09:00 06:10:00
[2018-11-03 20:31] VITALS: BMI 24.0
[2018-11-03 21:30] LABS: Absolute Lymphocytes (CBC) 0.9 K/uL (0.7-4.9); Basophils % 0.5 % (0-1.3); Hematocrit 34.3 % (39.6-49.0); Lymphocytes % 9.6 % (15.3-44.8); MPV 8.4 fL (7.6-11.3); RBC Red Blood Cell Count 3.88 M/uL (4.33-5.43)
[2018-11-03 21:47] LABS: Albumin 2.1 g/dL (3.4-5.0); Bilirubin Total 0.5 mg/dL (0.2-1.0); Magnesium 1.7 mg/dL (1.8-2.4); Protein, Total 6.6 g/dL (6.4-8.2)
[2018-11-03] MEDS ORDERED: ACETAMINOPHEN 500 MG TAB PO PRN (21:56)
[2018-11-03] MEDS: NA CHLORIDE 0.9% 1,000 ML IV SCH (23:16)
[2018-11-03] MEDS ORDERED: MAGNESIUM SULFATE 1 gm IVPB 1 GM/100 ML BAG IV ONE (23:20)
[2018-11-03 23:51] LABS: Urine Appearance CLOUDY; Urine Bilirubin NEGATIVE (NEG); Urine Blood 3+ (NEG); Urine Color YELLOW; Urine Glucose NEGATIVE (NEG); Urine Protein 1+ (NEG); Urine Specific Gravity 1.015 (1.005-1.030); Urine pH 5.5 (5.0-7.0)
[2018-11-03] MEDS: CEFTRIAXONE/SWI 1gm 1 GM/10 ML SYR IV SCH (23:54)
[2018-11-04 00:10] LABS: Urine Culture Reflex Order NOT NEEDED
[2018-11-04 00:12] LABS: Urine RBC <5 /HPF (NONE SEEN)
[2018-11-04 00:13] LABS: Urine Bacteria >50 /HPF (NONE SEEN)
[2018-11-04] MEDS: TRAMADOL HCL 50 MG TAB PO PRN ×2 (03:45→22:26)
--- NOTE | 2018-11-04 04:35 | HP ---
Date of Admission: 11/03/2018 Chief Complaint: Fever and low blood pressure. History Of Present Illness: This is an 87-year-old very pleasant male patient who was discharged fro m the rehab floor about a week ago and he was doing fine, was in his normal usual state of health unt ok today. He called the office and was concerned about his low blood pressure. His systolic blood p ressure was around 86 to 88. The patient did not report any other complaints. He was advised to com e to the office for further evaluation. He came into office with caregiver and , and upon arriva l to office, we noted that the patient was having fever. Upon further questioning, patient reported having fever as of yesterday associated with chills. He denies any cough, cold, congestion, sore thr oat. No shortness of breath. No chest pain. No abdominal pain. No nausea, vomiting, diarrhea. No bleeding. No urinary complaints. No rash. He took some Tylenol today before coming to office. Hi s temperature at office was 101.8 degrees Fahrenheit with blood pressure was 94/55. After I evaluate d him, he was admitted to the hospital. The patient was extremely weak. No confusion. No fall. No injury. Medications: List reviewed. Review of Systems: Constitutional: As mentioned above. Cardiovascular: As mentioned above. All other systems reviewed and negative. Allergies: NO KNOWN ALLERGIES. Social History: Negative for smoking and alcohol use. Family History: Not pertinent. Past Medical History: Significant for atrial fibrillation, coronary artery disease, gastroesophageal reflux disease, gout, head and neck cancer, prostate cancer, hypertension. The patient had chemo ra diation therapy for prostate cancer and had head and neck cancer around same time and this was years ago. Past medical history also significant for carotid artery stenosis. The patient's angular js developer is Dr. Kenny Goldman. Past Surgical History: Coronary artery angioplasty with stent placement of LAD in 2003, left interna l carotid artery stent placement on July 30, 2018. Back surgery many years ago, right hip surgery for intertrochanteric hip fracture in September 2018. Physical Examination: Vital Signs: When he came into office today, height 73 inches, weight 200 pounds, temperature 101.8, pulse 87, respiratory rate 18, blood pressure 94/55. General: Patient appears extremely weak and his clothes were wet from perspiration at office today. HEENT: Head atraumatic, normocephalic. Conjunctivae nonerythematous. Sclerae white. Mouth, no thr ush or edema noted. Ears/Nose, no mass, lesion, discharge noted. Neck: Supple. No JVD, lymph nodes, bruit, thyromegaly noted. Lungs: Bilateral good equal air entry. Clear to auscultation. No rhonchi. No rales. Heart: Presence of systolic murmur, unchanged. Abdomen: Soft, bowel sounds normal. No guarding, rigidity, tenderness, mass, hepatosplenomegaly, di stention, or bruit noted. Extremities: No leg edema. No calf tenderness. Skin: No rash, ulcer, cellulitis. Lymphatics: No lymph node enlargement in neck, supraclavicular, infraclavicular region. Neuro: No focal neurological deficit. Chest: Unremarkable. External Genitalia: Deferred. Rectal: Deferred. Laboratory Data: His white count 9.7, hemoglobin 11.1, platelets 273. Sodium 139, potassium 4, chlo ride 105, bicarb 27, BUN 25, creatinine 1.26, glucose 111, magnesium 1.7. Liver function tests unrem arkable. Lactic acid 1.5, procalcitonin pending. Urinalysis pending. Impression: 1.Rule out sepsis. 2.Hypomagnesemia. 3.Anemia. 4.Carotid artery stenosis. 5.Coronary artery disease. 6.Hypertension. 7.Hyperlipidemia. 8.Prostate cancer. 9.Paroxysmal atrial fibrillation. 10.Gastroesophageal reflux disease. 11.Gout. Plan: Admit the patient to hospital for further evaluation and management of this problem. The [facility] ent is appropriate for inpatient and is expected to spend 2 midnights in hospital. We will go ahead and continue home medications per order. Cultures were done. We will follow up on results. Empiric antibiotic will be started. We will also get influenza A and B test. On the basis of physical exam , I was not able to determine any definite source of infection. We will follow up on chest x-ray res ults. Electrolytes will be replaced per protocol. RUI/MODL Voice ID: [id number]
[2018-11-04] MEDS: NA CHLORIDE 0.9% 1,000 ML IV SCH ×4 (04:53→21:31)
[2018-11-04] MEDS: SOTALOL HCL 80 MG TAB PO SCH ×2 (05:41→17:00)
[2018-11-04] MEDS: CEFTRIAXONE/SWI 1gm 1 GM/10 ML SYR IV SCH ×2 (07:45→20:18)
[2018-11-04] MEDS: ASPIRIN EC 81 MG TAB PO SCH (07:45)
[2018-11-04] MEDS: ENOXAPARIN 40 MG/0.4 ML SQ SCH (07:45)
[2018-11-04] MEDS ORDERED: CEFTRIAXONE/SWI 1gm 1 GM/10 ML SYR IV SCH ×2 (09:00)
--- NOTE | 2018-11-04 11:21 | RAD REPORT ---
EXAM DESCRIPTION: RAD - Chest Single View - 11/03/2018 10:55 pm CLINICAL HISTORY: Fever COMPARISON: None. TECHNIQUE: XR CHEST 1 VIEW 11/03/2018 12:00 AM CDT FINDINGS: Cardiac silhouette is normal in size. There is a small right basilar calcified granuloma. There is no focal consolidation. There is a small nodule in the left lower lung measuring 1.5 cm. The re is no pleural effusion. There is no pneumothorax. There are no acute osseous findings. IMPRESSION: Possible 1.5 cm left lower lobe pulmonary nodule. Recommend unenhanced chest CT. Electronically signed by: Tino Cuellar MD 11/03/2018 11:19 PM CDT Due to temporary technical issues with the PACS/Fluency reporting system, reports are being signed by the in house radiologist as a courtesy to ensure prompt reporting. The interpreting radiologist is f ully responsible for the content of the report.
[2018-11-04] MEDS: MELATONIN 5 MG TABLET PO PRN (22:23)
--- NOTE | 2018-11-05 01:55 | PN ---
Date of Progress Note: 11/04/2018 Subjective: Patient was seen this morning for followup. He was feeling better this morning than yes terday. No new complaints or problems reported. Objective: Vital Signs: Reviewed. HEENT: Unremarkable. Lungs: Clear to auscultation. Heart: Sounds normal. Abdomen: Soft. Bowel sounds normal. No guarding, rigidity, tenderness, or distention. Extremities: No leg edema. Skin: No rash. Impression: 1.Acute pyelonephritis. 2.Rule out sepsis. 3.Hypertension. 4.Carotid artery disease. 5.Coronary artery disease. Plan: Patient's urinalysis was abnormal. Urine culture is pending. Blood culture is pending. We w ill continue current antibiotic. He feels better today than yesterday. He does not have typical uri nary complaints with these pyelonephritis symptoms. We will see him tomorrow for followup. Physical Therapy to work with him. RUI/JACQUELYN Voice ID: [id number] Report ID: [id number]
[2018-11-05] MEDS: SOTALOL HCL 80 MG TAB PO SCH ×2 (05:58→17:34)
[2018-11-05] MEDS: NA CHLORIDE 0.9% 1,000 ML IV SCH ×2 (05:58→07:01)
[2018-11-05] MEDS ORDERED: POLYETHYL GLY 3350 17 GM/DOSE PO PRN (07:00)
[2018-11-05] MEDS ORDERED: DIAZEPAM 2 MG TABLET PO PRN (07:00)
[2018-11-05] MEDS ORDERED: FLUTICASONE 50MCG NASAL SPRAY NAS PRN (07:00)
[2018-11-05] MEDS: LISINOPRIL 5 MG TAB PO SCH ×2 (08:14→20:26)
[2018-11-05] MEDS: ENOXAPARIN 40 MG/0.4 ML SQ SCH (08:14)
[2018-11-05] MEDS: ASPIRIN EC 81 MG TAB PO SCH (08:14)
[2018-11-05] MEDS: DOCUSATE NA/SENNA CONC 1 TAB PO SCH ×2 (08:14→20:27)
[2018-11-05] MEDS: GABAPENTIN 400 MG CAP PO SCH ×2 (08:14→17:32)
[2018-11-05] MEDS: CEFTRIAXONE/SWI 1gm 1 GM/10 ML SYR IV SCH ×2 (08:15→20:25)
[2018-11-05] MEDS: ACETAMINOPHEN 500 MG TAB PO SCH ×2 (08:22→20:27)
[2018-11-05] MEDS: ALLOPURINOL 300 MG TAB PO SCH (08:22)
--- NOTE | 2018-11-05 08:49 | RAD REPORT ---
EXAM DESCRIPTION: US - Renal Ultrasound-Complete - 11/05/2018 8:26 am CLINICAL HISTORY: pyelonephritis, sepsis Flank pain COMPARISON: None FINDINGS: Bilateral renal sonography and urinary bladder ultrasound was performed. Both kidneys are normal in size, shape and echotexture. The right kidney measures 12.6 x 5.4 x 5.3 cm. No hydronephrosis. Several hypoechoic renal lesions ar e present likely representing cysts, largest measuring 6.0 x 5.1 cm. The left kidney measures 13.8 x 6.8 x 4.3 cm. No hydronephrosis seen. Several hypoechoic lesions are seen, largest measuring 5.2 x 4.6 cm, most likely represent renal cysts. Urinary bladder sonography demonstrates no evidence of mass or ureterocele. Prostate gland is mildly projects the bladder base. IMPRESSION: Bilateral renal cysts noted without hydronephrosis or evidence of perinephric fluid elaine ection. No pathologic urinary bladder finding.
--- NOTE | 2018-11-05 10:20 | RAD REPORT ---
EXAM DESCRIPTION: US - Urinary Bladder - 11/05/2018 8:26 am CLINICAL HISTORY: Pyelonephritis, sepsis Flank pain COMPARISON: None FINDINGS: Bilateral renal sonography and urinary bladder ultrasound was performed. Both kidneys are normal in size, shape and echotexture. The right kidney measures 12.6 x 5.4 x 5.3 cm . No hydronephrosis. Several hypoechoic renal lesions a re present likely representing cysts, largest measuring 6.0 x 5.1 cm. The left kidney measures 13.8 x 6.8 x 4.3 cm . No hydronephrosis seen. Several hypoechoic lesions are seen, largest measuring 5.2 x 4.6 cm, most likely represent renal cysts. Urinary bladder sonography demonstrates no evidence of mass or ureterocele. Prostate gland is mildly projects the bladder base. IMPRESSION: Bilateral renal cysts noted without hydronephrosis or evidence of perinephric fluid co llection. No pathologic urinary bladder finding.
--- NOTE | 2018-11-05 10:38 | RAD REPORT ---
EXAM DESCRIPTION: CT - Thorax Wo Con - 11/05/2018 9:19 am CLINICAL HISTORY: Abnormal chest film, pulmonary nodule found on November 03 chest examination COMPARISON: Portable chest November 03 TECHNIQUE: Axial 5 mm thick images of the chest were obtained without IV contrast. All CT scans are performed using dose optimization technique as appropriate and may include automated exposure control or mA/KV adjustment according to patient size. FINDINGS: Trace pleural fluid seen in each posterior gutter. A small fully calcified granuloma is pr esent in the posterior gutter on the right. Right hilar granulomatous calcifications are present. Min imal scarring changes noted on the right. Scarring or atelectasis changes present in the posterior gutter on the left. In the lingula of the le ft lower lobe abutting the pleura (image 33/60) there is an 11 x 8 mm noncalcified nodule. Margins ar e slightly spiculated. No fat component. Size and location correspond to the chest film finding. In t he mid left upper lobe (image 23/60) there is a smaller 7 x 7 millimeter noncalcified nodule. No pleural based mass. No pneumothorax. Small nonspecific noncalcified mediastinal lymph nodes are present. No abnormal hilar mass or lymphad enopathy. No gross aortic or pulmonary artery finding suspected. Assessment is limited in the absenc e of IV contrast. No pericardial effusion. No chest wall mass or abnormal axillary lymphadenopathy. Limited upper abdomen imaging shows a 22 millimeter left adrenal mass. The right adrenal gland contai ns 19 millimeter and 15 millimeter nodules. IMPRESSION: An 11 millimeter suspicious nodule is present in the lingula left upper lobe. This repre sents the correlate to the chest film finding. Additional 7 mm noncalcified nodule is seen in the left upper lobe along with right-sided granuloma. Nonspecific bilateral adrenal masses not meeting strict criteria for adenoma diagnosis. PET-CT imaging could be utilized to evaluate activity of the 11 millimeter nodule as well as the adre nal masses. If PET-CT imaging cannot be obtained, follow-up CT imaging in 3-6 months could be obtaine d. Due to the small size, pleural abutment and positioning in the lingula, percutaneous biopsy would wou ld be very difficult, have a high likelihood of pneumothorax and decreased likelihood of successful d iagnosis.
[2018-11-05] MEDS: MELATONIN 5 MG TABLET PO PRN (20:26)
[2018-11-05] MEDS: ATORVASTATIN 40 MG TAB PO SCH (20:27)
[2018-11-06] MEDS: GABAPENTIN 400 MG CAP PO SCH ×3 (01:59→17:47)
[2018-11-06] MEDS: NA CHLORIDE 0.9% 1,000 ML IV SCH ×2 (05:01→08:01)
[2018-11-06] MEDS: SOTALOL HCL 80 MG TAB PO SCH ×2 (05:55→17:46)
[2018-11-06] MEDS: PANTOPRAZOLE 40MG TABLET PO SCH (05:55)
[2018-11-06] MEDS: ENOXAPARIN 40 MG/0.4 ML SQ SCH (08:22)
[2018-11-06] MEDS: ACETAMINOPHEN 500 MG TAB PO SCH ×2 (08:23→20:06)
[2018-11-06] MEDS: ASPIRIN EC 81 MG TAB PO SCH (08:23)
[2018-11-06] MEDS: DOCUSATE NA/SENNA CONC 1 TAB PO SCH ×2 (08:24→20:07)
[2018-11-06] MEDS: LISINOPRIL 5 MG TAB PO SCH ×2 (08:24→20:07)
[2018-11-06] MEDS: ALLOPURINOL 300 MG TAB PO SCH (08:25)
[2018-11-06] MEDS: CEFTRIAXONE/SWI 1gm 1 GM/10 ML SYR IV SCH ×2 (08:27→20:07)
--- NOTE | 2018-11-06 16:40 | PN ---
Date of Progress Note: 11/05/2018 Subjective: Patient was seen this morning for followup. No new complaints or problems reported by him. Denies any chest pain, shortness of breath, abdominal pain, nausea, vomiting. Objective: Vital signs: Reviewed. HEENT: Examination unremarkable. Lungs: Clear to auscultation. Heart: Sounds normal. Abdomen: Soft. Bowel sounds normal. No guarding, rigidity, tenderness, or distention. Extremities: No leg edema. Laboratory Data: Chest x-ray results reviewed with the patient. An x-ray has shown about 1.5 cm left lower lobe pulmonary nodule. Impression: 1. Sepsis, gram negative. 2. Acute pyelonephritis. 3. Pulmonary nodule. Plan: We will go ahead and get an ultrasound of kidney, ultrasound of bladder today and CAT scan of the chest. 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 We will follow up with a CAT scan of the chest as we have ordered. Culture report, final report is not ready yet. We will continue current antibiotics and physical therapy. RUI/JACQUELYN Voice ID: [id number] Report ID: [id number] RAUL
[2018-11-06] MEDS: ATORVASTATIN 40 MG TAB PO SCH (20:07)
--- NOTE | 2018-11-06 20:45 | RAD REPORT ---
EXAM DESCRIPTION: RAD - Chest Single View - 11/06/2018 8:39 pm CLINICAL HISTORY: Device placement PICC line placement FINDINGS: A PICC line has been inserted with its tip in the mid superior vena cava.
[2018-11-06] MEDS ORDERED: AMLODIPINE 5 MG TAB PO PRN (21:54)
[2018-11-07] MEDS: GABAPENTIN 400 MG CAP PO SCH ×3 (00:26→17:06)
[2018-11-07] MEDS: SOTALOL HCL 80 MG TAB PO SCH ×2 (05:09→17:06)
[2018-11-07] MEDS: NA CHLORIDE 0.9% 1,000 ML IV SCH (05:09)
[2018-11-07] MEDS: PANTOPRAZOLE 40MG TABLET PO SCH (05:10)
[2018-11-07] MEDS: CEFTRIAXONE/SWI 1gm 1 GM/10 ML SYR IV SCH ×2 (09:00→20:35)
[2018-11-07] MEDS: ENOXAPARIN 40 MG/0.4 ML SQ SCH (09:59)
[2018-11-07] MEDS: ASPIRIN EC 81 MG TAB PO SCH (09:59)
[2018-11-07] MEDS: DOCUSATE NA/SENNA CONC 1 TAB PO SCH ×2 (10:00→20:34)
[2018-11-07] MEDS: ACETAMINOPHEN 500 MG TAB PO SCH ×2 (10:00→20:34)
[2018-11-07] MEDS: ALLOPURINOL 300 MG TAB PO SCH (10:00)
[2018-11-07] MEDS: LISINOPRIL 5 MG TAB PO SCH ×2 (10:01→20:34)
[2018-11-07 10:48] LABS: Potassium 3.8 mmol/L (3.5-5.1)
[2018-11-07 10:50] LABS: Absolute Lymphocytes (CBC) 0.7 K/uL (0.7-4.9); Basophils % 0.5 % (0-1.3); Hematocrit 34.2 % (39.6-49.0); Lymphocytes % 13.9 % (15.3-44.8); MPV 8.6 fL (7.6-11.3)
--- NOTE | 2018-11-07 11:57 | PN ---
Date of Progress Note: 11/06/2018 Subjective: Patient was seen for followup in the morning and in the afternoon, 2 different times. W hen I saw him in the morning, he was asymptomatic. Denied any complaints. No chest pain, shortness of breath, nausea, vomiting. Objective: Vital Signs: Reviewed. HEENT: Unremarkable. Lungs: Clear to auscultation. Heart: Sounds normal. Abdomen: Soft. Bowel sounds normal. No guarding, rigidity, tenderness, or distention. Extremities: No leg edema. Laboratory Data: Urine culture and blood culture came back positive for E coli and it is sensitive t o multiple antibiotics, but they are IV antibiotics and it is sensitive to Cipro and Levaquin. Impression: 1.Sepsis, organism Escherichia coli. 2.Acute pyelonephritis, organism Escherichia coli. 3.Paroxysmal atrial fibrillation. 4.Coronary artery disease. Plan: After I saw the patient, culture result was available and I did talk to the patient and patien t's regarding the culture results. He is on sotalol for his paroxysmal atrial fibrillation and there is a significant interaction between sotalol as well as antibiotics like Cipro and Levaquin. S o, with that kind of significant interaction, we would like to avoid using those medications together . I had a long discussion with the patient and his on the phone. I also reached out to his car diologist, Dr. Goldman, in [place] to see if he has any plans to discontinue sotalol or not and he in formed me that the patient should continue his sotalol. So at this point, we will not be able to use Cipro or Levaquin type of antibiotics considering we have other IV antibiotics available. I came ba zoraida to the hospital to discuss with the patient and his in the afternoon, explained all these det ails and advised that we should continue IV antibiotics for 2 weeks instead of taking any chances of interaction between sotalol and Cipro type of antibiotics and they understand and agree with that justin n. Meanwhile, I call Microbiology Department and patient is on ceftriaxone since admission and he felix s improved. His urine culture and blood culture both reported same organism Escherichia coli, but th e sensitivity result was different and ceftriaxone that the patient is currently on and improving was not even listed on sensitivity results, but the microbiology tech informed me that when he looked at the machine, E coli was sensitive to ceftriaxone. So with that information, we will continue ceftri axone and I have talked to the pathologist to look into this to see why appropriate sensitivity resul t is not reported on the reports that we receive. In any case, we will plan to continue ceftriaxone for 2 weeks. PICC line was ordered. I did communicate with Social Service to try to make arrangemen ts for home IV antibiotic therapy. RUI/JACQUELYN Voice ID: [id number] Report ID: [id number]
--- NOTE | 2018-11-07 12:50 | PN ---
Date of Progress Note: 11/07/2018 Subjective: Patient was seen this morning for followup. His was present with him at bedside. He was sitting in the chair, feels very good. No complaints or problems reported. Objective: Vital Signs: Reviewed. HEENT: Unremarkable. Lungs: Clear to auscultation. Heart: Sounds normal. Abdomen: Soft. Bowel sounds normal. No guarding, rigidity, tenderness, or distention. Extremities: No leg edema. His CAT scan of the chest done shows evidence of granuloma in the right lung. Left lung has 11 mm orozco spicious nodule and a 7 mm noncalcified nodule in left upper lobe. Renal ultrasound shows bilateral renal cysts, 5 to 6 cm in size. Impression: 1.Sepsis, organism Escherichia coli. 2.Acute pyelonephritis, organism Escherichia coli. 3.Pulmonary nodules, rule out metastatic disease. 4.Renal cyst. 5.Prostate cancer. 6.Head and neck cancer. 7.Paroxysmal atrial fibrillation. Plan: Patient has received his treatment at [facility] for prostate cancer as well as head and neck cancer and with this 2 new lesions noted on his lung, I have discussed details with him and advised him to follow up at [facility] and he is willing to do so. We will go ahead and have my office try to get him appointment at [facility]. For renal cyst, no further intervention is needed except sam esteban. We will continue his current IV antibiotics ceftriaxone. Social Service is trying to make a rrangements for home IV antibiotic therapy. Once that is arranged, we will plan to discharge him to go home. Yesterday, I got a message that the patient's granddaughter, who is a nurse practitioner, federico shend to talk to me and today I asked the patient if he gives me permission to communicate with this particular family member and he informed me that it is not necessary for me to call as he has already communicated with her and in the future if he wants me to talk to any other family member, he will i nform me to do so. RUI/MODL Voice ID: [id number] Report ID: [id number]
[2018-11-07] MEDS ORDERED: POTASSIUM CL SA 10 MEQ TAB PO ONE (13:00)
[2018-11-07] MEDS: ATORVASTATIN 40 MG TAB PO SCH (20:33)
[2018-11-08] MEDS: GABAPENTIN 400 MG CAP PO SCH ×3 (00:04→18:02)
[2018-11-08] MEDS: SOTALOL HCL 80 MG TAB PO SCH ×2 (05:07→18:01)
[2018-11-08] MEDS: PANTOPRAZOLE 40MG TABLET PO SCH (05:07)
[2018-11-08 05:36] LABS: BUN Blood Urea Nitrogen 12 mg/dL (7-18); Bicarbonate 30 mmol/L (21-32); Glucose Level 87 mg/dL (74-106); Potassium 3.8 mmol/L (3.5-5.1); Sodium Level 143 mmol/L (136-145)
[2018-11-08] MEDS: ENOXAPARIN 40 MG/0.4 ML SQ SCH (08:29)
[2018-11-08] MEDS: ASPIRIN EC 81 MG TAB PO SCH (08:29)
[2018-11-08] MEDS: LISINOPRIL 5 MG TAB PO SCH ×2 (08:30→20:12)
[2018-11-08] MEDS: ACETAMINOPHEN 500 MG TAB PO SCH ×2 (08:30→20:13)
[2018-11-08] MEDS: DOCUSATE NA/SENNA CONC 1 TAB PO SCH ×2 (08:31→20:13)
[2018-11-08] MEDS: ALLOPURINOL 300 MG TAB PO SCH (08:31)
[2018-11-08] MEDS: CEFTRIAXONE/SWI 1gm 1 GM/10 ML SYR IV SCH (08:32)
[2018-11-08] MEDS: NA CHLORIDE 0.9% 1,000 ML IV SCH (08:39)
[2018-11-08] MEDS ORDERED: POTASSIUM CL SA 10 MEQ TAB PO ONE (09:00)
[2018-11-08] MEDS: ATORVASTATIN 40 MG TAB PO SCH (20:13)
[2018-11-08] MEDS: CEFTRIAXONE/SWI 1gm 1 GM/10 ML SYR IVP SCH (20:14)
[2018-11-08] MEDS ORDERED: CEFTRIAXONE/SWI 1gm 1 GM/10 ML SYR IV SCH (21:00)
[2018-11-09] MEDS: GABAPENTIN 400 MG CAP PO SCH ×2 (00:11→08:40)
[2018-11-09 03:53] VITALS: O2SAT 98
[2018-11-09] MEDS: SOTALOL HCL 80 MG TAB PO SCH (05:14)
[2018-11-09] MEDS: NA CHLORIDE 0.9% 1,000 ML IV SCH (05:14)
[2018-11-09] MEDS: PANTOPRAZOLE 40MG TABLET PO SCH (05:14)
[2018-11-09 05:40] LABS: BUN Blood Urea Nitrogen 12 mg/dL (7-18); Bicarbonate 28 mmol/L (21-32); Glucose Level 85 mg/dL (74-106); Sodium Level 144 mmol/L (136-145)
--- NOTE | 2018-11-09 07:58 | PN ---
Date of Progress Note: 11/08/2018 Subjective: Patient was seen in the morning for followup. His was present with him at bedside. He is sitting in chair. Denied any complaints. No constipation or diarrhea. No chest pain or viola rtness of breath. No flank pain. Objective: Vital Signs: Reviewed. HEENT: Examination unremarkable. Lungs: Clear to auscultation. Heart: Sounds normal. Abdomen: Soft. Bowel sounds normal. No guarding, rigidity, tenderness, or distention. Extremities: No leg edema. Laboratory Data: Reviewed. Impression: 1.Sepsis, organism Escherichia coli. 2.Acute pyelonephritis, organism Escherichia coli. 3.Hypertension. 4.Coronary artery disease. Plan: We will continue current antibiotic which is ceftriaxone according to culture and sensitivity results. We will go ahead and plan to discharge soon as arrangements gets completed. I have discuss ed with nursing staff and she did reach out to home infusion company, [employer] and as we understand that the patient's has been provided with appropriate teaching about how to administer antibioti cs at home and all these arrangements will be completed as per information we got from by a script th at antibiotics will be delivered to hospital tomorrow so the patient can be possibly discharged to go home tomorrow. I will see him tomorrow morning for followup. RUI/MODL Voice ID: [id number] Report ID: [id number]
[2018-11-09 08:24] VITALS: TEMP 97.7
[2018-11-09] MEDS: CEFTRIAXONE/SWI 1gm 1 GM/10 ML SYR IVP SCH (08:39)
[2018-11-09] MEDS: ENOXAPARIN 40 MG/0.4 ML SQ SCH (08:39)
[2018-11-09] MEDS: ALLOPURINOL 300 MG TAB PO SCH (08:40)
[2018-11-09] MEDS: LISINOPRIL 5 MG TAB PO SCH (08:40)
[2018-11-09] MEDS: DOCUSATE NA/SENNA CONC 1 TAB PO SCH (08:40)
[2018-11-09] MEDS: ASPIRIN EC 81 MG TAB PO SCH (08:41)
[2018-11-09] MEDS: ACETAMINOPHEN 500 MG TAB PO SCH (08:41)
[2018-11-09 08:50] VITALS: BP 160/72
--- NOTE | 2018-11-10 02:33 | DS ---
Date of Discharge: 11/09/2018 Disposition: Discharged to go home. Physical Examination: HEENT: Unremarkable. Lungs: Clear to auscultation. Heart: Sounds normal. Abdomen: Soft. Bowel sounds normal. No guarding, rigidity, tenderness, or distention. Extremities: No leg edema. Laboratory Data: Upon admission, white count 9.7, hemoglobin 11.1, platelets 273. This was on 11/03. On 11/07/2018, white count 4.8, hemoglobin 11, platelets 305. Urine culture and blood cultur e grew E coli. Last chemistry today; sodium 144, potassium 4, chloride 111, bicarb 28, BUN 12, creat inine 0.64, glucose 85. Procalcitonin 0.25 on 11/03/2018. Influenza A and B test were negative. est x-ray showed 1.5 cm left lower lobe nodule and CAT scan of the chest was done without contrast sh owed right-sided granuloma and 2 small nodules in the left lung, one 11 mm size and one 7 mm size and this appears to be suspicious, 11 mm nodule coincides with chest x-ray finding. Patient was also no annie a 22 mm left adrenal and 15 mm right adrenal mass. We are not sure the nature of this. Renal ul trasound showed 5-6 cm kidney cyst on each side. Hospital Course: This is an 87-year-old, very pleasant male patient who was admitted to the hospital with fever and low blood pressure. Please see dictated H and P for more information. After patient was evaluated at the office, he was admitted to the hospital with concern about sepsis. Urine cultu re and blood culture were done. Chest x-ray did not show pneumonia. Urinalysis was abnormal, consis tent with infection. Patient was started on empiric antibiotic, ceftriaxone. Urine culture and bloo d culture results came back, it is growing E coli and it is sensitive to ceftriaxone. Patient has re sponded very well to this antibiotic. He has remained afebrile now on antibiotic. His hypotension p roblem got resolved. Home medications were continued. Physical therapy was consulted to help ambula te the patient. Patient takes sotalol for his history of paroxysmal atrial fibrillation and I did co mmunicate with his director of special services this week on Friday and the patient will need to continue to stay on this antiarrhythmic medication and in view of that, use of antibiotic like Levaquin or Cipro is contr aindicated, so we decided to continue IV ceftriaxone for the treatment of this infection. PICC line was placed and social service was consulted to help make arrangements for 2 weeks of IV antibiotics t o be at home and once all arrangements completed, the patient will be discharged to go home today. T he patient will start his home health and home physical therapy upon discharge. I have discussed wit h the patient regarding his chest x-ray, renal ultrasound as well as his CAT scan finding. He receiv ed his treatment for prostate cancer and head and neck cancer at [facility]. Last time, he was ther e was about 7 to 8 years ago or so. He was advised to go back to [facility] for this abnormality no annie on the CAT scan and we will have office start the referral process and patient understands and ag mehran with this treatment plan. Final Diagnoses: 1.Sepsis, organism Escherichia coli. 2.Acute pyelonephritis, organism Escherichia coli. 3.Pulmonary nodule, rule out metastatic disease. 4.Bilateral adrenal adenoma, rule out metastatic disease. 5.Bilateral renal cysts. 6.Anemia, unspecified. 7.Hypomagnesemia. 8.Carotid artery stenosis, bilateral. 9.Coronary artery disease. 10.Hypertension. 11.Hyperlipidemia. 12.Prostate cancer. 13.Paroxysmal atrial fibrillation. 14.Head and neck cancer. 15.Gastroesophageal reflux disease. 16.Gout. Discharge Medications And Instructions: 1.Continue all prior home medications. 2.Ceftriaxone 1 g IV every 12 hours. 3.Home health nurse to assist patient to flush PICC line per protocol, change PICC line dressing per protocol, remove PICC line after 2 weeks of IV antibiotic therapy completed. 4.Draw blood for CBC, chem-7 on 11/12/2018 and 11/16/2018. 5.Patient to follow up at my office during week of 11/23/2018 and call office for appointment. 6.Home health to resume care. RUI/MODL Voice ID: [id number] Report ID: [id number]
== END 2018-11-09 11:49 | disposition home health service (06) | DRG 872 ==
LOC: 2ND 20:03
PROVIDERS: ADMIT Internal Medicine; ATTEND Internal Medicine
PROC: 02HV33Z Insertion of Infusion Device into Superior Vena Cava, Percutaneous Approach (ICD-10-PCS; principal; 2018-11-06)
DX: A41.51 Sepsis due to Escherichia coli [E. coli] (principal); N10 Acute pyelonephritis; E83.42 Hypomagnesemia; D64.9 Anemia, unspecified; I65.23 Occlusion and stenosis of bilateral carotid arteries; I25.10 Atherosclerotic heart disease of native coronary artery without angina pectoris; I10 Essential (primary) hypertension; E78.5 Hyperlipidemia, unspecified; I48.0 Paroxysmal atrial fibrillation; K21.9 Gastro-esophageal reflux disease without esophagitis; M10.9 Gout, unspecified; R91.1 Solitary pulmonary nodule; D35.02 Benign neoplasm of left adrenal gland; D35.01 Benign neoplasm of right adrenal gland; N28.1 Cyst of kidney, acquired; Z95.5 Presence of coronary angioplasty implant and graft; Z85.46 Personal history of malignant neoplasm of prostate; Z85.89 Personal history of malignant neoplasm of other organs and systems
CPT/HCPCS: 36415; 71045; 71250; 76770; 76857; 80048; 80053; 81001; 83605; 83735; 84145; 85025; 87040; 87077; 87086; 87088; 87186; 87205; 87804; 97110; 97112; 97116; 97161; 97530; J0696; J1650; J3475; J7030